=== PATIENT | male | born 1965 | race Caucasian/White ===

== ENCOUNTER 2020-03-13 16:13 | Outpatient (REF) | payer OTHER, SELFPAY | END 2020-03-13 16:14 | disposition home or self-care (01) | LOC: HO.LAB 16:13 | PROVIDERS: Visit Provider Internal Medicine | DX: Z20.828 Contact with and (suspected) exposure to other viral communicable diseases (principal) | CPT/HCPCS: C9803; U0003 ==

== ENCOUNTER 2020-05-07 07:49 | Outpatient (REF) | payer OTHER, SELFPAY ==
[2020-05-07 08:17] LABS: MANUAL DIFF FLAG NO
[2020-05-07 08:20] LABS: Basophils Percent Auto 0.7 % (0-2); Eosinophils Absolute Auto 0.1 X10*3/uL (0.0-0.4); Eosinophils Percent Auto 2.8 % (0-4); Hematocrit 43.2 % (42-52); Hemoglobin 15.7 g/dl (14.0-18.0); Imm Gran Abs Auto 0.02 X10*3/uL (0.00-0.03); Imm Gran Pct Auto 0.5 % (0.0-0.4); Lymphocytes Percent Auto 21.8 % (20-40); Mean Corpuscular HGB Conc 36.3 g/dl (31.0-36.0); Mean Corpuscular Hemoglobin 33.6 pg (27.0-33.0); Mean Corpuscular Volume 92.5 fL (80-98); Mean Platelet Volume 9.6 fL (9.4-12.4); Monocytes Absolute Auto 0.5 X10*3/uL (0.1-1.2); Monocytes Percent Auto 10.6 % (2-11); Neutrophils Absolute Auto 2.8 X10*3/uL (2.0-8.3); Neutrophils Percent Auto 63.6 % (45-73); Platelet Count 175 X10*3/uL (160-400); Red Blood Count 4.67 X10*6/uL (4.60-5.80); Red Cell Distribution Width 11.6 % (11.0-16.0); White Blood Count 4.4 X10*3/uL (4.8-10.8)
[2020-05-07 08:45] LABS: Alanine Aminotransferase 76 U/L (0-40); Anion Gap 14 (12-20); Aspartate Amino Transferase 82 U/L (5-37); Blood Urea Nitrogen 8 mg/dL (9-16); Carbon Dioxide 27 mmol/L (22-29); Chloride 96 mmol/L (96-108); Estimated Glomerular Filt Rate > 60; Potassium 4.6 mmol/L (3.3-5.1); Sodium 132 mmol/L (135-145)
[2020-05-07 09:16] LABS: Creatinine Urine 86.31 mg/dL; Microalbum/Creatinine Ratio Ur 30.1 ug/mg cr
[2020-05-07 10:02] LABS: Estimated Average Glucose 163 mg/dL; Hemoglobin A1c % 7.3 %
[2020-05-09 16:26] LABS: FIB-ALT 68 U/L (9-46); FIB-Alpha-2-Macroglobulin 177 mg/dL (106-279); FIB-Apolipoprotein A1 148 mg/dL (94-176); FIB-GGT 130 U/L (3-85); FIB-Haptoglobin 95 mg/dL (43-212); Liver Fibrosis Stage F2; Nec Inflam Act Grade A1-A2; Nec Inflam Act Score 0.48
== END 2020-05-07 07:50 | disposition home or self-care (01) ==
LOC: HO.LAB 07:49
PROVIDERS: Visit Provider Family Medicine
DX: I10 Essential (primary) hypertension (principal); E11.9 Type 2 diabetes mellitus without complications; R94.5 Abnormal results of liver function studies
CPT/HCPCS: 36415; 80051; 81596; 82043; 82565; 83036; 84450; 84460; 84520; 85025

== ENCOUNTER 2020-11-10 07:53 | Outpatient (REF) | payer OTHER, SELFPAY ==
[2020-11-10 11:06] LABS: Estimated Average Glucose 160 mg/dL; Hemoglobin A1c % 7.2 %
[2020-11-10 11:16] LABS: Alanine Aminotransferase 70 U/L (0-40); Anion Gap 14 (12-20); Aspartate Amino Transferase 60 U/L (5-37); Blood Urea Nitrogen 7 mg/dL (9-16); Carbon Dioxide 27 mmol/L (22-29); Chloride 100 mmol/L (96-108); Cholesterol 182 mg/dL; Estimated Glomerular Filt Rate > 60; Glucose Fasting 221 mg/dL (60-99); HDL Cholesterol 48 mg/dL; LDL Cholesterol Calculated 117 mg/dl; Potassium 4.6 mmol/L (3.3-5.1); Sodium 136 mmol/L (135-145); Triglycerides 87 mg/dL
== END 2020-11-10 07:54 | disposition home or self-care (01) ==
LOC: HO.10HDL 07:53
PROVIDERS: Visit Provider Family Medicine
DX: I10 Essential (primary) hypertension (principal); E11.9 Type 2 diabetes mellitus without complications; E78.00 Pure hypercholesterolemia, unspecified; Z79.899 Other long term (current) drug therapy
CPT/HCPCS: 36415; 80051; 80061; 82565; 82947; 83036; 84450; 84460; 84520

== ENCOUNTER 2021-03-31 08:05 | Outpatient (REF) | payer OTHER, SELFPAY ==
[2021-03-31 10:27] LABS: Estimated Average Glucose 157 mg/dL; Hemoglobin A1c % 7.1 %
[2021-03-31 10:35] LABS: Creatinine Urine 126.89 mg/dL; Microalbum/Creatinine Ratio Ur 18.1 ug/mg cr
[2021-03-31 10:36] LABS: Alanine Aminotransferase 50 U/L (0-40); Anion Gap 14 (12-20); Aspartate Amino Transferase 57 U/L (5-37); Blood Urea Nitrogen 7 mg/dL (9-16); Carbon Dioxide 25 mmol/L (22-29); Chloride 101 mmol/L (96-108); Cholesterol 180 mg/dL; Estimated Glomerular Filt Rate > 60; Glucose Fasting 147 mg/dL (60-99); HDL Cholesterol 37 mg/dL; LDL Cholesterol Calculated 123 mg/dl; Sodium 136 mmol/L (135-145); Triglycerides 104 mg/dL
== END 2021-03-31 08:06 | disposition home or self-care (01) ==
LOC: HO.10HDL 08:05
PROVIDERS: Visit Provider Family Medicine
DX: I10 Essential (primary) hypertension (principal); E11.9 Type 2 diabetes mellitus without complications; E78.00 Pure hypercholesterolemia, unspecified; Z79.899 Other long term (current) drug therapy
CPT/HCPCS: 36415; 80051; 80061; 82043; 82550; 82565; 82947; 83036; 84450; 84460; 84520

== ENCOUNTER 2021-06-15 07:52 | Outpatient (REF) | payer OTHER, SELFPAY ==
[2021-06-15 10:54] LABS: Estimated Average Glucose 146 mg/dL; Hemoglobin A1c % 6.7 %
[2021-06-15 11:04] LABS: Alanine Aminotransferase 37 U/L (0-40); Aspartate Amino Transferase 28 U/L (5-37); Glucose Fasting 211 mg/dL (60-99)
== END 2021-06-15 07:53 | disposition home or self-care (01) ==
LOC: HO.10HDL 07:52
PROVIDERS: Visit Provider Family Medicine
DX: E11.9 Type 2 diabetes mellitus without complications (principal); K75.81 Nonalcoholic steatohepatitis (NASH)
CPT/HCPCS: 36415; 82947; 83036; 84450; 84460

== ENCOUNTER 2021-08-26 06:31 | Outpatient (REF) | payer OTHER, SELFPAY ==
[2021-08-26 06:52] LABS: MANUAL DIFF FLAG NO
[2021-08-26 07:14] LABS: Basophils Percent Auto 1.1 % (0-2); Eosinophils Absolute Auto 0.1 X10*3/uL (0.0-0.4); Eosinophils Percent Auto 2.7 % (0-4); Hematocrit 41.6 % (42.0-52.0); Hemoglobin 15.1 g/dl (14.0-18.0); Imm Gran Abs Auto 0.02 X10*3/uL (0.00-0.03); Imm Gran Pct Auto 0.5 % (0.0-0.4); Lymphocytes Absolute Auto 0.9 X10*3/uL (1.2-4.9); Lymphocytes Percent Auto 25.1 % (20-40); Mean Corpuscular HGB Conc 36.3 g/dl (31.0-36.0); Mean Corpuscular Hemoglobin 33.6 pg (27.0-33.0); Mean Corpuscular Volume 92.7 fL (80.0-98.0); Mean Platelet Volume 9.7 fL (9.4-12.4); Monocytes Absolute Auto 0.5 X10*3/uL (0.1-1.2); Monocytes Percent Auto 13.8 % (2-11); Neutrophils Absolute Auto 2.1 x10*3/uL (2.0-8.3); Neutrophils Percent Auto 56.8 % (45-73); Platelet Count 134 X10*3/uL (160-400); Red Blood Count 4.49 X10*6/uL (4.60-5.80); Red Cell Distribution Width 11.8 % (11.0-16.0); White Blood Count 3.7 X10*3/uL (4.8-10.8)
[2021-08-26 07:23] LABS: Estimated Average Glucose 146 mg/dL; Hemoglobin A1C 198.3215 umol/L; Hemoglobin A1c % 6.7 %
[2021-08-26 07:43] LABS: Anion Gap 12 (12-20); Blood Urea Nitrogen 10 mg/dL (9-16); Carbon Dioxide 27 mmol/L (22-29); Chloride 102 mmol/L (96-108); Estimated Glomerular Filt Rate > 60; Glucose Fasting 206 mg/dL (60-99); Potassium 4.8 mmol/L (3.3-5.1); Sodium 136 mmol/L (135-145)
[2021-08-26 09:07] LABS: Creatinine Urine 101.03 mg/dL; Microalbum/Creatinine Ratio Ur 15.8 ug/mg cr
== END 2021-08-26 06:32 | disposition home or self-care (01) ==
LOC: HO.LAB 06:31
PROVIDERS: PCP Family Medicine; Visit Provider Family Medicine
DX: R63.4 Abnormal weight loss (principal); E11.9 Type 2 diabetes mellitus without complications; I10 Essential (primary) hypertension
CPT/HCPCS: 36415; 80051; 82043; 82565; 82947; 83036; 84520; 85025

== ENCOUNTER 2022-02-19 08:21 | Outpatient (REF) | payer OTHER, SELFPAY ==
[2022-02-19 11:09] LABS: Estimated Average Glucose 126 mg/dL
[2022-02-19 11:14] LABS: Alanine Aminotransferase 41 U/L (0-40); Anion Gap 14 (12-20); Aspartate Amino Transferase 36 U/L (5-37); Blood Urea Nitrogen 8 mg/dL (9-16); Carbon Dioxide 27 mmol/L (22-29); Chloride 98 mmol/L (96-108); Estimated Glomerular Filt Rate > 60; Glucose Fasting 172 mg/dL (60-99); Potassium 4.5 mmol/L (3.3-5.1); Sodium 134 mmol/L (135-145)
== END 2022-02-19 08:22 | disposition home or self-care (01) ==
LOC: HO.10HDL 08:21
PROVIDERS: Visit Provider Family Medicine
DX: I10 Essential (primary) hypertension (principal); E11.9 Type 2 diabetes mellitus without complications; E78.00 Pure hypercholesterolemia, unspecified; Z79.899 Other long term (current) drug therapy
CPT/HCPCS: 36415; 80051; 82565; 82947; 83036; 84450; 84460; 84520

== ENCOUNTER 2022-03-05 08:53 | Outpatient (REF) | payer OTHER, SELFPAY ==
[2022-03-05 11:19] LABS: MANUAL DIFF FLAG NO
[2022-03-05 11:30] LABS: Basophils Percent Auto 1.1 % (0-2); Eosinophils Absolute Auto 0.1 X10*3/uL (0.0-0.4); Eosinophils Percent Auto 1.4 % (0-4); Hematocrit 42.9 % (42.0-52.0); Hemoglobin 15.4 g/dl (14.0-18.0); Lymphocytes Absolute Auto 0.7 X10*3/uL (1.2-4.9); Lymphocytes Percent Auto 19.5 % (20-40); Mean Corpuscular HGB Conc 35.9 g/dl (31.0-36.0); Mean Corpuscular Hemoglobin 33.7 pg (27.0-33.0); Mean Corpuscular Volume 93.9 fL (80.0-98.0); Mean Platelet Volume 10.1 fL (9.4-12.4); Monocytes Absolute Auto 0.4 X10*3/uL (0.1-1.2); Monocytes Percent Auto 12.6 % (2-11); Neutrophils Absolute Auto 2.3 x10*3/uL (2.0-8.3); Neutrophils Percent Auto 65.4 % (45-73); Platelet Count 162 X10*3/uL (160-400); Red Blood Count 4.57 X10*6/uL (4.60-5.80); Red Cell Distribution Width 11.3 % (11.0-16.0); White Blood Count 3.5 X10*3/uL (4.8-10.8)
[2022-03-05 11:58] LABS: Amylase 49 U/L (28-100); Calcium 9.4 mg/dL (8.4-10.2); Carcinoembryonic Antigen < 1.73 ng/mL; Lipase 20 U/L (8-78)
[2022-03-05 12:17] LABS: Erythrocyte Sedimentation Rate 2 MM/HR (0-15)
[2022-03-05 12:24] LABS: Appearance Urine Clear; Color Urine Yellow; Glucose Urine UA Negative (Negative); Leukocyte Esterase Urine Negative (Negative); Nitrite Urine Negative (Negative); Specific Gravity - Urine 1.015 (1.005-1.025); UMIC TRIGGER UA YES; Urine Blood Negative (Negative); Urine Ketones Trace mg/dL (Negative); Urine Protein 30 (1+) mg/dL (Neg-Trace)
[2022-03-05 12:26] LABS: Bacteria Urine None Seen (None Seen); Hyaline Casts Urine 0-2 /LPF (0-2); RBC Urine 0-2 /HPF (0-2); Squamous Epithelial Cell Urine 0-2 /HPF (0-2); WBC Urine 0-5 /HPF (0-5)
== END 2022-03-05 08:54 | disposition home or self-care (01) ==
LOC: HO.10HDL 08:53
PROVIDERS: Visit Provider Family Medicine
DX: R10.13 Epigastric pain (principal); R10.9 Unspecified abdominal pain; R63.4 Abnormal weight loss
CPT/HCPCS: 36415; 81001; 82150; 82310; 82378; 83690; 85025; 85652

== ENCOUNTER 2022-03-05 09:09 | Outpatient (REF) | payer OTHER, SELFPAY ==
--- NOTE | ~2022-03-05 | US_ITS ---
EXAMINATION: US ABDOMEN COMPLETE CLINICAL INFORMATION: Left upper quadrant pain. Weight loss. COMPARISON: None TECHNIQUE: Real-time imaging of the abdominal viscera. FINDINGS: PANCREAS: The head and body of the pancreas are normal. The tail is not well visualized due to bowel gas. ABDOMINAL AORTA: The proximal, mid, and distal segments are normal in caliber. INFERIOR VENA CAVA: Visualized portions are normal. LIVER: Liver echotexture is increased. The liver is normal in size The liver contour is normal. No focal hepatic lesion. There is no intrahepatic biliary duct dilatation seen. GALLBLADDER: Normal. The gallbladder is physiologically distended without evidence of stones, sludge, polyps, wall thickening or pericholecystic fluid. COMMON BILE DUCT: Normal in caliber measuring 0.3 cm in diameter. RIGHT KIDNEY: Normal. No hydronephrosis. No renal calculi or focal parenchymal lesions. The kidney measures 12.3 cm in maximum dimension. LEFT KIDNEY: 1.3 cm cyst in the midpole. No hydronephrosis or renal calculi. The kidney measures 11.7 cm in maximum dimension. SPLEEN: Upper normal-size spleen. The spleen measures 11.3 cm in maximum dimension. FREE FLUID: None. US/US abdomen complete IMPRESSION: Echogenic liver. Differential would include fatty infiltration and hepatocellular disease. Upper normal-size spleen. Limited visualization of the tail of the pancreas. Left renal cyst.
== END 2022-03-05 09:10 | disposition home or self-care (01) ==
LOC: HO.US 09:09
PROVIDERS: Visit Provider Family Medicine
DX: R10.13 Epigastric pain (principal); R63.4 Abnormal weight loss
CPT/HCPCS: 76700

== ENCOUNTER 2022-05-14 10:00 | Outpatient (REF) | payer OTHER, SELFPAY ==
[2022-05-14 10:41] LABS: COVID-19 Test Negative (Negative); IDNOW Serial# 16C4AD1C
== END 2022-05-14 10:01 | disposition home or self-care (01) ==
LOC: HO.LAB 10:00
PROVIDERS: Visit Provider Internal Medicine
DX: Z20.822 Contact with and (suspected) exposure to COVID-19 (principal)
CPT/HCPCS: 87635; C9803

== ENCOUNTER 2022-06-28 07:39 | Outpatient (REF) | payer OTHER, SELFPAY ==
[2022-06-28 10:48] LABS: Estimated Average Glucose 143 mg/dL; Hemoglobin A1c % 6.6 %
[2022-06-28 10:50] LABS: Glucose Fasting 175 mg/dL (60-99)
[2022-06-28 11:33] LABS: Creatinine Urine 106.34 mg/dL; Microalbum/Creatinine Ratio Ur 18.8 ug/mg cr
== END 2022-06-28 07:40 | disposition home or self-care (01) ==
LOC: HO.10HDL 07:39
PROVIDERS: Visit Provider Family Medicine
DX: E11.9 Type 2 diabetes mellitus without complications (principal)
CPT/HCPCS: 36415; 82043; 82947; 83036

== ENCOUNTER 2022-10-04 10:35 | Day surgery (SDC) | payer OTHER, SELFPAY ==
--- NOTE | 2022-10-01 14:15 | P.CONAN_ITS ---
Documented by User: Aiyana Brunner NP 10/01/22 14:16 HPI - Anesthesia Eval Consult details Narrative: 57yo M for Upper Endoscopy and Colonoscopy [facility] Past Medical History Medical History Depression Diabetes GERD (gastroesophageal reflux disease) H/O sleep study HTN (hypertension) Pulmonary sarcoidosis Surgical History Surgical History H/O wrist surgery History of Achilles tendon repair History of right knee joint replacement Hx of appendectomy Social History Social History Patient Tobacco Use Status: Never used Tobacco Second Hand Smoke Exposure: No Use of substances other than those prescribed or required for medical reasons: No Are you DNR?: No Advance Directives: No Advance Directives Information Provided: Yes Advance Directives on File: No Meds Allergies Allergy/AdvReac Type Severity Reaction Status Date / Time No Known Allergies Allergy Unverified 09/07/21 13:48 [No Known Allergies*] Home Medications Medication Instructions Recorded Confirmed Last Taken Type amlodipine 5 mg tablet 5 mg PO QPM 09/07/21 Unknown History blood sugar diagnostic (OneTouch #10 ea 09/07/21 Unknown History Ultra Test strips) bupropion HCl 300 mg 24 hr tablet, 300 mg PO QAM 09/07/21 Unknown History extended release gabapentin 300 mg capsule 300 mg PO BEDTIME 09/07/21 Unknown History lisinopril 20 mg tablet 20 mg PO DAILY 09/07/21 Unknown History metformin 1,000 mg tablet 1,000 mg PO BEDTIME 09/07/21 Unknown History tadalafil 10 mg tablet 10 mg PO DAILY 09/07/21 Unknown History atorvastatin 10/01/22 Unknown History citalopram 20 mg tablet 20 mg PO QAM 10/01/22 10/01/22 Unknown History mirtazapine 15 mg tablet mg 10/01/22 Unknown History naltrexone 50 mg tablet mg 10/01/22 Unknown History Exam Exam Date and Time: October 01, 2022 1415 Assessment and Plan Assessment Anesthesia Assessment: Chart Reviewed Documented by User: Nichole Shin MD 10/04/22 11:42 [facility] Past Medical History Medical History Depression Diabetes GERD (gastroesophageal reflux disease) H/O sleep study HTN (hypertension) Pulmonary sarcoidosis Family History Family history of problems with anesthesia: No Surgical History Surgical History H/O wrist surgery History of Achilles tendon repair History of right knee joint replacement Hx of appendectomy History of Problems with Anesthesia: No Social History Social History Patient Tobacco Use Status: Never used Tobacco Second Hand Smoke Exposure: No Use of substances other than those prescribed or required for medical reasons: No Are you DNR?: No Advance Directives: No Advance Directives Information Provided: Yes Advance Directives on File: No Meds Allergies Allergy/AdvReac Type Severity Reaction Status Date / Time No Known Allergies Allergy Unverified 09/07/21 13:48 [No Known Allergies*] Home Medications Medication Instructions Recorded Confirmed Last Taken Type amlodipine 5 mg tablet 5 mg PO QPM 09/07/21 Unknown History blood sugar diagnostic (OneTouch #10 ea 09/07/21 Unknown History Ultra Test strips) bupropion HCl 300 mg 24 hr tablet, 300 mg PO QAM 09/07/21 Unknown History extended release gabapentin 300 mg capsule 300 mg PO BEDTIME 09/07/21 Unknown History lisinopril 20 mg tablet 20 mg PO DAILY 09/07/21 Unknown History metformin 1,000 mg tablet 1,000 mg PO BEDTIME 09/07/21 Unknown History tadalafil 10 mg tablet 10 mg PO DAILY 09/07/21 Unknown History atorvastatin 10/01/22 Unknown History citalopram 20 mg tablet 20 mg PO QAM 10/01/22 10/01/22 Unknown History mirtazapine 15 mg tablet mg 10/01/22 Unknown History naltrexone 50 mg tablet mg 10/01/22 Unknown History Exam Airway Mallampati Class: II TM Dist: >3cm Neck ROM: Full Heart: rrr Lungs: cta Assessment and Plan Assessment Anesthesia Assessment: Anesthesia Plan Discussed Final Anesthetic Review Family History of Problems with Anesthesia: No History of Problems with Anesthesia: No NPO: Yes ASA Class: III Final Preanesthetic Review: No Changes in Pt Med Stat, Meds/Allgs Chart Reviewed, Consent Obtained/Reviewed and Anes Risks/Benef Reviewed Patient Risk: Low Procedure Risk: Low Anesthetic Plan Anesthetic Plan: MAC: Disposition: Standard PACU
[2022-10-04 11:02] VITALS: BMI 29.0
[2022-10-04 11:09] VITALS: BP 156/80; PULSE 86; RESP 16; TEMP 36.6; O2SAT 98
[2022-10-04] MEDS: Lactated Ringers 1,000 ML 100 ML IVCONT (11:21)
[2022-10-04 12:12] LABS: Glucose, Whole Blood 201 mg/dL (60-115)
[2022-10-04 13:14] VITALS: BP 99/65; PULSE 80; RESP 16; TEMP 36.1; O2SAT 97
--- NOTE | 2022-10-04 13:17 | PM.OP ---
Brief Operative Note Date of Service: 10/04/22 Pre-op diagnosis: GERD, Screening Post-op diagnosis: other (Erosive esophagitis/Gastritis, Polyps) Procedure: EGD with biopsies, Colonoscopy to the cecum with hot snare polypectomy of a cecal polyp and bx/removal of TC polyp Surgeon: Ahsan Barnes Anesthesia: MAC Was an Power Originator used for this Procedure?: No Estimated blood loss (mL): 2.0 Pathology: other (A. Gastric antrum B. Esophagus 35-40cm C. Cecal polyp D. Transverse colon polyp) Condition: stable Disposition: PACU
[2022-10-04 13:29] VITALS: BP 126/81; PULSE 74; RESP 15; TEMP 36.1; O2SAT 99
--- NOTE | 2022-10-05 00:39 | OP_ITS ---
DATE OF SERVICE: 10/04/2022 SURGEON: Ahsan Barnes MD INDICATIONS: The patient presents for evaluation of chronic gastroesophageal reflux, personal history of tubular adenoma of the colon, and need for colorectal cancer screening. Full consent obtained from him for both procedures, including risks of bleeding and perforation. PREOPERATIVE DIAGNOSIS: POSTOPERATIVE DIAGNOSIS: PROCEDURE PERFORMED: Esophagogastroduodenoscopy with biopsies, and colonoscopy to the cecum with hot snare polypectomy, and biopsy removal of polyp. ESTIMATED BLOOD LOSS: COMPLICATIONS: ANESTHESIA: Monitored anesthesia care. ASSISTANTS: SPECIMENS: PREOPERATIVE DIAGNOSES: Gastroesophageal reflux, history of tubular adenoma of the colon, colorectal cancer screening, erosive esophagitis, hiatal hernia, erosive gastritis, colon polyps, diverticulosis, and small internal hemorrhoids. DESCRIPTION OF PROCEDURE: The patient was placed in the left lateral decubitus position. The Olympus video gastroscope was passed in the posterior oropharynx and upper esophagus under direct vision. The scope was passed slowly into the distal esophagus. The gastroesophageal junction appeared at 40 cm. Extending from this to 35 cm were areas of erosive esophagitis with linear ulcerations as well as an approximately 10 mm area of ulceration with overlying exudate. There is no mass nor any definitive evidence of Light's mucosa. The scope entered the stomach. There was a small hiatal hernia. The scope was advanced to the pylorus and the duodenum was cannulated to the descending portion. The duodenum including the bulb appeared normal without mass or ulceration. The scope was withdrawn back in the stomach. The gastric antrum had areas of erosive gastritis with surrounding edema and erythema. There was no ulceration nor mass. There was good peristalsis. The scope was retroflexed visualizing the proximal stomach carefully, which appeared normal, without any sign of mass or ulceration. The scope was straightened. Biopsies were obtained from the gastric antrum. The scope was withdrawn back into the esophagus. Biopsies were obtained between 35 and 40 cm. Two biopsies were obtained from the margins of the ulceration as well. Proximal to 35 cm the esophageal mucosa appeared normal. The scope was withdrawn from the patient. He was turned around for colonoscopy. The digital rectal exam revealed no abnormalities. The Olympus video pediatric colonoscope was entered into the rectum and advanced easily to the cecum. Once in the cecum, I did identify the cecal pouch, the appendiceal orifice, and a normal-appearing ileocecal valve. The entire cecum was well visualized. In the cecum was an approximately 10 to 12 mm polyp, which was removed by hot snare polypectomy, recovered by suction. The polypectomy site appeared clean, without any sign of residual polyp nor bleeding. The scope was then slowly withdrawn assessing all mucosal surfaces carefully. Preparation throughout the colon was good, but there was a fair amount of liquid stool, which had to be suctioned and irrigated, although this was not complete. In the transverse colon was an approximately 3 or 4 mm polyp, which was biopsied and completely removed with cold biopsy forceps. I did not visualize any other polyps, colitis, or angiodysplasia. There was a mild amount of sigmoid diverticulosis. In the rectum, scope was retroflexed visualizing internal hemorrhoids, but no other pathology. The rectal mucosa appeared normal. The scope was straightened and withdrawn from the patient. He tolerated both procedures well and was returned to recovery area in stable condition. IMPRESSION: 1. Erosive esophagitis. 2. Erosive gastritis. 3. Hiatal hernia. 4. Colon polyps. 5. Diverticulosis. 6. Small internal hemorrhoids. PLAN: The results of the pathology will be checked. I would recommend a repeat colonoscopy in 3 years for further screening and surveillance given the somewhat limited prep and today's findings. He was advised not to use any aspirin or NSAIDs for at least 1 week. He does have a prescription for omeprazole 40 mg to use at home, which he was using regularly, but recently has only been using it as needed. I have advised him to use it daily on a long-term basis regardless whether he has any symptoms or not given today's findings. He was advised to see me in the fall for a followup visit. Depending on the biopsy results and his clinical course, we may want to repeat the upper endoscopy to assess for healing of the esophageal ulcer and esophagitis. I did advise him to try to avoid all aspirin and NSAIDs in general given the upper endoscopy findings as well. MD KRISTIN Edwards/MARIE / [id number] MTDRenae
== END 2022-10-04 14:16 | disposition home or self-care (01) ==
PROVIDERS: PCP Family Medicine; Visit Provider Internal Medicine
PROC: (CPT 45380; principal; 2022-10-04 10:30)
DX: Z12.11 Encounter for screening for malignant neoplasm of colon (principal); D12.0 Benign neoplasm of cecum; D12.3 Benign neoplasm of transverse colon; K22.10 Ulcer of esophagus without bleeding; K25.9 Gastric ulcer, unspecified as acute or chronic, without hemorrhage or perforation; K44.9 Diaphragmatic hernia without obstruction or gangrene; K57.30 Diverticulosis of large intestine without perforation or abscess without bleeding; K64.8 Other hemorrhoids; K21.9 Gastro-esophageal reflux disease without esophagitis; F10.21 Alcohol dependence, in remission; E11.9 Type 2 diabetes mellitus without complications; I10 Essential (primary) hypertension; E78.5 Hyperlipidemia, unspecified; Z86.010 Personal history of colon polyps; Z79.899 Other long term (current) drug therapy
CPT/HCPCS: 45380; 45385; 43239; 82947; 88305; 88342

== ENCOUNTER 2023-01-28 08:00 | Outpatient (REF) | payer OTHER, SELFPAY ==
[2023-01-28 10:55] LABS: Estimated Average Glucose 171 mg/dL; Hemoglobin A1c % 7.6 % (<6.0)
[2023-01-28 11:05] LABS: Alanine Aminotransferase 71 U/L (0-40); Anion Gap 12 (12-20); Aspartate Amino Transferase 62 U/L (5-37); Blood Urea Nitrogen 8 mg/dL (9-16); Carbon Dioxide 28 mmol/L (22-29); Chloride 102 mmol/L (96-108); Estimated Glomerular Filt Rate > 60; Glucose Fasting 257 mg/dL (60-99); Potassium 4.6 mmol/L (3.3-5.1); Sodium 137 mmol/L (135-145)
[2023-01-28 11:18] LABS: Prostate Specific Antigen Scr 0.59 ng/mL (<0.05-4.0)
== END 2023-01-28 08:01 | disposition home or self-care (01) ==
LOC: HO.10HDL 08:00
PROVIDERS: Visit Provider Family Medicine
DX: I10 Essential (primary) hypertension (principal); E11.9 Type 2 diabetes mellitus without complications; E78.00 Pure hypercholesterolemia, unspecified; N40.0 Benign prostatic hyperplasia without lower urinary tract symptoms; Z79.899 Other long term (current) drug therapy; Z12.5 Encounter for screening for malignant neoplasm of prostate
CPT/HCPCS: 36415; 80051; 82550; 82565; 82947; 83036; 84153; 84450; 84460; 84520

== ENCOUNTER 2023-06-03 12:29 | Outpatient (REF) | payer OTHER, SELFPAY ==
[2023-06-03 12:46] LABS: MANUAL DIFF FLAG NO
[2023-06-03 12:57] LABS: Basophils Absolute Auto 0.1 X10*3/uL (0.0-0.2); Eosinophils Percent Auto 0.5 % (0-4); Hematocrit 46.2 % (42.0-52.0); Imm Gran Abs Auto 0.03 X10*3/uL (0.00-0.03); Imm Gran Pct Auto 0.5 % (0.0-0.4); Lymphocytes Absolute Auto 1.1 X10*3/uL (1.2-4.9); Lymphocytes Percent Auto 17.8 % (20-40); Mean Corpuscular HGB Conc 36.8 g/dl (31.0-36.0); Mean Corpuscular Volume 92.4 fL (80.0-98.0); Mean Platelet Volume 9.6 fL (9.4-12.4); Monocytes Absolute Auto 0.6 X10*3/uL (0.1-1.2); Monocytes Percent Auto 9.4 % (2-11); Neutrophils Absolute Auto 4.5 x10*3/uL (2.0-8.3); Neutrophils Percent Auto 70.8 % (45-73); Platelet Count 167 X10*3/uL (160-400); Red Cell Distribution Width 11.5 % (11.0-16.0); White Blood Count 6.3 X10*3/uL (4.8-10.8)
[2023-06-03 13:15] LABS: Alanine Aminotransferase 83 U/L (0-40); Albumin Level 4.5 g/dL (3.5-5.0); Alkaline Phosphatase 75 U/L (39-117); Anion Gap 16 (12-20); Aspartate Amino Transferase 72 U/L (5-37); Blood Urea Nitrogen 7 mg/dL (9-16); Calcium 9.8 mg/dL (8.4-10.2); Carbon Dioxide 25 mmol/L (22-29); Chloride 97 mmol/L (96-108); Estimated Glomerular Filt Rate > 60; Ethanol 36 mg/dL; Glucose Random 302 mg/dL (60-115); Potassium 4.2 mmol/L (3.3-5.1); Sodium 134 mmol/L (135-145)
[2023-06-03 13:29] LABS: Free T4 (Free Thyroxine) 0.94 ng/dL (0.71-1.85)
== END 2023-06-03 12:30 | disposition home or self-care (01) ==
LOC: HO.LAB 12:29
PROVIDERS: Visit Provider Family Medicine
DX: I10 Essential (primary) hypertension (principal); R00.0 Tachycardia, unspecified; R27.0 Ataxia, unspecified; R25.1 Tremor, unspecified
CPT/HCPCS: 36415; 80053; 80307; 84439; 84443; 85025

== ENCOUNTER → 2023-06-14 09:34 | Outpatient (REF) | payer OTHER, SELFPAY ==
--- NOTE | 2023-06-14 09:41 | ECG_ITS ---
Test Reason : palpitations Blood Pressure : / mmHG Vent. Rate : 061 BPM Atrial Rate : 061 BPM P-R Int : 188 ms QRS Dur : 116 ms QT Int : 416 ms P-R-T Axes : 027 -09 023 degrees QTc Int : 418 ms Sinus rhythm with Premature atrial complexes Otherwise normal ECG When compared with ECG of 14-MAY-2014 07:32, Premature atrial complexes are now Present Referred By: Gumaro Sánchez Electronically Signed By:ADRIEL FITCH MD
== END ==
LOC: HO.CARD 09:34
PROVIDERS: PCP Family Medicine; Visit Provider Family Medicine
DX: R00.2 Palpitations (principal)
CPT/HCPCS: 93005

== ENCOUNTER → 2023-06-14 09:41 | Outpatient (BNV) | payer OTHER, SELFPAY | PROVIDERS: PCP Family Medicine; Visit Provider Internal Medicine Cardiovascular Disease | DX: R00.2 Palpitations (principal) | CPT/HCPCS: 93010 ==

== ENCOUNTER 2023-07-13 07:39 | Outpatient (REF) | payer OTHER, SELFPAY | END 2023-07-13 07:40 | disposition home or self-care (01) | LOC: HO.10HDL 07:39 | PROVIDERS: Visit Provider Family Medicine | DX: E11.9 Type 2 diabetes mellitus without complications (principal); K75.81 Nonalcoholic steatohepatitis (NASH); R00.2 Palpitations | CPT/HCPCS: 36415; 82043; 82570; 82947; 83036; 84450; 84460 ==

== ENCOUNTER 2023-07-22 09:59 | Outpatient (REF) | payer OTHER, SELFPAY ==
[2023-07-22 12:08] LABS: Alanine Aminotransferase 57 U/L (0-40); Albumin Level 4.6 g/dL (3.5-5.0); Alkaline Phosphatase 62 U/L (39-117); Aspartate Amino Transferase 57 U/L (5-37); Bilirubin Direct 0.4 mg/dL (0.0-0.5); Bilirubin Total 1.1 mg/dL (0.0-1.0); Total Protein 7.6 g/dL (6.5-8.0)
[2023-08-03 18:14] LABS: FIB-ALT 46 U/L (9-46); FIB-Alpha-2-Macroglobulin 195 mg/dL (106-279); FIB-Apolipoprotein A1 174 mg/dL (94-176); FIB-GGT 189 U/L (3-85); FIB-Haptoglobin 90 mg/dL (43-212); FIB-Total Bilirubin 1.1 mg/dL (0.2-1.2); Liver Fibrosis Score 0.56; Liver Fibrosis Stage F2; Nec Inflam Act Grade A1; Nec Inflam Act Score 0.34
== END 2023-07-22 10:00 | disposition home or self-care (01) ==
LOC: HO.10HDL 09:59
PROVIDERS: Referring Provider Internal Medicine; Visit Provider Family Medicine
DX: K75.81 Nonalcoholic steatohepatitis (NASH) (principal)
CPT/HCPCS: 36415; 80076; 81596

== ENCOUNTER 2023-08-22 07:36 | Outpatient (REF) | payer OTHER, SELFPAY ==
[2023-08-22 11:33] LABS: Alanine Aminotransferase 36 U/L (0-40); Albumin Level 4.2 g/dL (3.5-5.0); Alkaline Phosphatase 71 U/L (39-117); Aspartate Amino Transferase 31 U/L (5-37); Bilirubin Direct 0.5 mg/dL (0.0-0.5); Bilirubin Total 1.7 mg/dL (0.0-1.0); Iron 151 mcg/dL (45-160); Percent Iron Saturation 53 % (15-50); Total Iron Binding Capacity 283 mcg/dL (228-428); Total Protein 7.2 g/dL (6.5-8.0); Unsaturated Iron Binding 132 ug/dL
[2023-08-22 11:42] LABS: HBS Num1 1.02 mIU/mL (0-7.99); HBc Num1 0.17 S/CO (0.00-0.79); HBsAGNum1 0.36 S/CO (0.00-0.99); Hepatitis B Core Antibody Nonreactive (Nonreactive); Hepatitis B Surface Antigen Negative (Negative); ~HepC Num1 0.08 S/CO (0.00-0.79); ~Hepatitis B Surface Antibody NONREACTIVE (Nonreactive); ~Hepatitis C Antibody Nonreactive (Nonreactive)
[2023-08-22 11:48] LABS: Ferritin 969 ng/mL (20-250)
[2023-08-23 10:44] LABS: Alpha 1 Anti-trypsin 159 mg/dL (83-199)
== END 2023-08-22 07:37 | disposition home or self-care (01) ==
LOC: HO.10HDL 07:36
PROVIDERS: Visit Provider Internal Medicine
DX: K76.0 Fatty (change of) liver, not elsewhere classified (principal); R79.89 Other specified abnormal findings of blood chemistry
CPT/HCPCS: 36415; 80076; 82103; 82728; 83540; 86704; 86706; 86803; 87340

== ENCOUNTER 2023-09-26 10:57 | Day surgery (SDC) | payer OTHER, SELFPAY ==
[2023-09-22 15:05] VITALS: BMI 31.4
--- NOTE | 2023-09-23 10:30 | HO.ANESPROP2 ---
Documented by User: Aiyana Brunner NP 09/23/23 10:38 HPI - Anesthesia Eval Consult details Narrative: 58yo M for Upper Endoscopy [facility] Past Medical History Medical History Hyperlipidemia GERD (gastroesophageal reflux disease) Pulmonary sarcoidosis Depression HTN (hypertension) Diabetes Family History Family history of problems with anesthesia: No Surgical History Surgical History History of esophagogastroduodenoscopy (EGD) H/O colonoscopy Hx of appendectomy History of Achilles tendon repair H/O wrist surgery History of right knee joint replacement History of Problems with Anesthesia: No Social History Social History Patient Tobacco Use Status: Never used Tobacco Second Hand Smoke Exposure: No Use of substances other than those prescribed or required for medical reasons: No Are you DNR?: No Advance Directives: No Advance Directives Information Provided: Yes Meds Allergies Allergy/AdvReac Type Severity Reaction Status Date / Time No Known Allergies Allergy Verified 09/26/23 11:15 [No Known Allergies*] Home Medications ?Medication ?Instructions ?Recorded ?Confirmed ?Last Taken ?Type amlodipine 5 mg tablet 5 mg PO QPM 09/07/21 09/22/23 Unknown History blood sugar diagnostic (OneTouch #10 ea 09/07/21 Unknown History Ultra Test strips) gabapentin 300 mg capsule 300 mg PO BEDTIME 09/07/21 09/22/23 Unknown History lisinopril 20 mg tablet 20 mg PO DAILY 09/07/21 09/22/23 Unknown History metformin 1,000 mg tablet 1,000 mg PO BEDTIME 09/07/21 09/22/23 Unknown History atorvastatin 10/01/22 Unknown History citalopram 20 mg tablet 20 mg PO QAM 10/01/22 09/22/23 Unknown History mirtazapine 15 mg tablet 15 mg PO BEDTIME 10/01/22 09/22/23 Unknown History naltrexone 50 mg tablet 50 mg PO QAM 10/01/22 09/22/23 Unknown History metoprolol succinate 50 mg 50 mg PO DAILY 09/22/23 09/22/23 Unknown History tablet,extended release 24 hr omeprazole 40 mg capsule,delayed 40 mg PO QAM 09/22/23 09/22/23 Unknown History release sildenafil 100 mg tablet 100 mg PO DAILY PRN Erectile 09/22/23 09/22/23 Unknown History Dysfunction Exam Height,Weight and Vital Signs: Height 6 ft 5 in Weight 120.202 kg Pertinent Lab Results Pertinent Lab Results: Laboratory Tests 06/03/23 12:44 WBC 6.3 Hgb 17.0 Hct 46.2 Plt Count 167 Sodium 134 L Potassium 4.2 Chloride 97 Carbon Dioxide 25 BUN 7 L Creatinine 0.99 Narrative Narrative: EKG 06/2023 Vent. Rate : 061 BPM Atrial Rate : 061 BPM P-R Int : 188 ms QRS Dur : 116 ms QT Int : 416 ms P-R-T Axes : 027 -09 023 degrees QTc Int : 418 ms Sinus rhythm with Premature atrial complexes Otherwise normal ECG When compared with ECG of 14-MAY-2014 07:32, Premature atrial complexes are now Present Assessment and Plan Assessment Anesthesia Assessment: Chart Reviewed Final Anesthetic Review Family History of Problems with Anesthesia: No History of Problems with Anesthesia: No Documented by User: Kriss Corbett MD 09/26/23 12:50 [facility] Active Problems Active Problems: DM- missed metformin doses over the weekend. BS 247 Denies SERGEY H/o ETOH abuse Past Medical History Medical History Hyperlipidemia GERD (gastroesophageal reflux disease) Pulmonary sarcoidosis Depression HTN (hypertension) Diabetes Family History Family history of problems with anesthesia: No Surgical History Surgical History History of esophagogastroduodenoscopy (EGD) H/O colonoscopy Hx of appendectomy History of Achilles tendon repair H/O wrist surgery History of right knee joint replacement History of Problems with Anesthesia: No Social History Social History Patient Tobacco Use Status: Never used Tobacco Second Hand Smoke Exposure: No Use of substances other than those prescribed or required for medical reasons: No Are you DNR?: No Advance Directives: No Advance Directives Information Provided: Yes Meds Allergies Allergy/AdvReac Type Severity Reaction Status Date / Time No Known Allergies Allergy Verified 09/26/23 11:15 [No Known Allergies*] Home Medications ?Medication ?Instructions ?Recorded ?Confirmed ?Last Taken ?Type amlodipine 5 mg tablet 5 mg PO QPM 09/07/21 09/22/23 Unknown History blood sugar diagnostic (OneTouch #10 ea 09/07/21 Unknown History Ultra Test strips) gabapentin 300 mg capsule 300 mg PO BEDTIME 09/07/21 09/22/23 Unknown History lisinopril 20 mg tablet 20 mg PO DAILY 09/07/21 09/22/23 Unknown History metformin 1,000 mg tablet 1,000 mg PO BEDTIME 09/07/21 09/22/23 Unknown History atorvastatin 10/01/22 Unknown History citalopram 20 mg tablet 20 mg PO QAM 10/01/22 09/22/23 Unknown History mirtazapine 15 mg tablet 15 mg PO BEDTIME 10/01/22 09/22/23 Unknown History naltrexone 50 mg tablet 50 mg PO QAM 10/01/22 09/22/23 Unknown History metoprolol succinate 50 mg 50 mg PO DAILY 09/22/23 09/22/23 Unknown History tablet,extended release 24 hr omeprazole 40 mg capsule,delayed 40 mg PO QAM 09/22/23 09/22/23 Unknown History release sildenafil 100 mg tablet 100 mg PO DAILY PRN Erectile 09/22/23 09/22/23 Unknown History Dysfunction Exam Height,Weight and Vital Signs: Height 6 ft 5 in Weight 120.202 kg Vital Signs Temp Pulse Resp BP Pulse Ox O2 Del Method 09/26/23 11:34 98.3 F 70 16 151/88 H 97 Room Air Pertinent Lab Results Pertinent Lab Results: Laboratory Tests 06/03/23 12:44 WBC 6.3 Hgb 17.0 Hct 46.2 Plt Count 167 Sodium 134 L Potassium 4.2 Chloride 97 Carbon Dioxide 25 BUN 7 L Creatinine 0.99 Lab Results 09/26/23 Range/Units 11:46 POC Glucose 247 H (60-115) mg/dL Airway Mallampati Class: III TM Dist: >3cm Neck ROM: Full Loose/Missing/Broken Teeth: No (Denies broken, loose, missing teeth) Heart: RRR Lungs: CTAB Assessment and Plan Assessment Anesthesia Assessment: Anesthesia Plan Discussed and Chart Reviewed Final Anesthetic Review Family History of Problems with Anesthesia: No History of Problems with Anesthesia: No NPO: Yes ASA Class: III Final Preanesthetic Review: No Changes in Pt Med Stat, Meds/Allgs Chart Reviewed, Consent Obtained/Reviewed and Anes Risks/Benef Reviewed Patient Risk: Intermediate Procedure Risk: Low Assessment/Block/Sedation in SS: Assess/Block/Sedation-SS Anesthetic Plan Anesthetic Plan: TIVA
[2023-09-26 11:16] VITALS: BMI 30.6
[2023-09-26 11:34] VITALS: BP 151/88; PULSE 70; RESP 16; TEMP 36.8; O2SAT 97
[2023-09-26] MEDS: Lactated Ringers 1,000 ML 100 ML IVCONT (11:42)
[2023-09-26 11:53] LABS: Glucose, Whole Blood 247 mg/dL (60-115)
--- NOTE | 2023-09-26 13:13 | PC.NURSE ---
24hr update documented on paper
[2023-09-26 13:25] VITALS: BP 129/76; PULSE 89; RESP 16; TEMP 37.1; O2SAT 97
[2023-09-26 13:30] VITALS: BP 132/79; PULSE 81; RESP 16; O2SAT 97
--- NOTE | 2023-09-26 13:32 | PM.OP ---
Brief Operative Note Date of Service: 09/26/23 Pre-op diagnosis: GERD, Erosive esophagitis Post-op diagnosis: other (Hiatal hernia, R/O Light's) Procedure: EGD with biopsies Surgeon: Ahsan Barnes MD Anesthesia: MAC Was an Clinic Supervisor used for this Procedure?: No Estimated blood loss (mL): 2.0 Pathology: other (A. Esophagus 40-41cm) Condition: stable Disposition: PACU
[2023-09-26 13:35] VITALS: BP 140/81; PULSE 72; RESP 16; O2SAT 100
[2023-09-26 13:40] VITALS: BP 150/86; PULSE 71; RESP 16; TEMP 36.1; O2SAT 100
--- NOTE | 2023-09-26 14:38 | OP_ITS ---
DATE OF SERVICE: 09/26/2023 SURGEON: Ahsan Barnes MD INDICATIONS: The patient presents for evaluation of previous erosive esophagitis and gastroesophageal reflux. Full consent has been obtained from him for this, including risks of bleeding and perforation. PREOPERATIVE DIAGNOSIS: POSTOPERATIVE DIAGNOSIS: PROCEDURE PERFORMED: Esophagogastroduodenoscopy with biopsies. ESTIMATED BLOOD LOSS: COMPLICATIONS: ANESTHESIA: Monitored anesthesia care. ASSISTANTS: SPECIMENS: PREOPERATIVE DIAGNOSES: History of erosive esophagitis and gastroesophageal reflux. POSTOPERATIVE DIAGNOSES: History of erosive esophagitis and gastroesophageal reflux, healed esophagitis, rule out Light esophagus, hiatal hernia. DESCRIPTION OF PROCEDURE: The patient was placed in the left lateral decubitus position. The Olympus video gastroscope was passed in the posterior oropharynx and upper esophagus under direct vision. The scope was passed slowly to the distal esophagus. The gastroesophageal junction appeared at 41 cm. Extending from this to 40 cm were segments of probable Light's mucosa. There was no overlying esophagitis, lesions, nor ulceration. The scope entered the stomach. There was a small hiatal hernia. The scope was advanced to the pylorus and the duodenum was cannulated to the descending portion. The duodenum including the bulb appeared normal without mass or ulceration. Scope was withdrawn back to the stomach. The gastric antrum and body appeared normal with good peristalsis. The scope was retroflexed, visualizing the proximal stomach carefully, which appeared normal, without any sign of mass or ulceration. Scope was straightened and withdrawn back to the esophagus. Multiple biopsies were obtained between 40 and 41 cm to rule out Light's esophagus. The esophagus proximal to this appeared normal. Scope was withdrawn from the patient. He tolerated the procedure well and was returned to the recovery area in stable condition. IMPRESSION: 1. Gastroesophageal reflux, rule out Light's esophagus. 2. Hiatal hernia. PLAN: The results of the biopsies will be checked. If there is Light's esophagus without dysplasia, I would recommend a repeat upper endoscopy in 3 years. He was advised to continue his current regimen of omeprazole for continued symptomatic relief of reflux. In regard to slightly elevated LFTs, he was found to have an iron saturation of 53% with a ferritin of 969 in August. At that time, his liver profile was normal. I did review this with the patient, as well as his today, I had advised him that we will repeat those along with a genetic test for hereditary hemochromatosis. He will be seen in followup in that regard as well. He reports that he has been abstinent from alcohol since July, and I did advise him to certainly continue that. MD KRISTIN Edwards/MARIE / [id number] MTDD
== END 2023-09-26 13:57 | disposition home or self-care (01) ==
PROVIDERS: PCP Family Medicine; Visit Provider Internal Medicine
PROC: 0DJ08ZZ Inspection of Upper Intestinal Tract, Via Natural or Artificial Opening Endoscopic (ICD-10-PCS; CPT 43235; principal; 2023-09-26 12:10)
DX: K22.70 Barrett's esophagus without dysplasia (principal); K44.9 Diaphragmatic hernia without obstruction or gangrene; K21.9 Gastro-esophageal reflux disease without esophagitis; K76.0 Fatty (change of) liver, not elsewhere classified; R79.89 Other specified abnormal findings of blood chemistry; I10 Essential (primary) hypertension; E11.9 Type 2 diabetes mellitus without complications; E78.5 Hyperlipidemia, unspecified; D86.0 Sarcoidosis of lung; F32.A Depression, unspecified; Z79.84 Long term (current) use of oral hypoglycemic drugs; Z79.899 Other long term (current) drug therapy
CPT/HCPCS: 43239; 82947; 88305; J1596; J2405; J2704

== ENCOUNTER 2023-11-15 07:37 | Outpatient (REF) | payer OTHER, SELFPAY ==
[2023-11-15 11:40] LABS: Alanine Aminotransferase 63 U/L (0-40); Albumin Level 4.2 g/dL (3.5-5.0); Alkaline Phosphatase 60 U/L (39-117); Aspartate Amino Transferase 82 U/L (5-37); Bilirubin Direct 0.3 mg/dL (0.0-0.5); Bilirubin Total 1.1 mg/dL (0.0-1.0); Iron 95 mcg/dL (45-160); Percent Iron Saturation 34 % (15-50); Total Iron Binding Capacity 281 mcg/dL (228-428); Total Protein 7.2 g/dL (6.5-8.0); Unsaturated Iron Binding 186 ug/dL
[2023-11-15 11:41] LABS: Ferritin 1048 ng/mL (20-250)
== END 2023-11-15 07:38 | disposition home or self-care (01) ==
LOC: HO.10HDL 07:37
PROVIDERS: Visit Provider Internal Medicine
DX: R94.5 Abnormal results of liver function studies (principal); E83.19 Other disorders of iron metabolism
CPT/HCPCS: 36415; 80076; 81256; 82728; 83540

== ENCOUNTER 2023-12-27 07:34 | Outpatient (REF) | payer OTHER, SELFPAY ==
[2023-12-27 11:09] LABS: Estimated Average Glucose 200 mg/dL; Hemoglobin A1C 264.4115 umol/L; Hemoglobin A1c % 8.6 % (<6.0); Total Hemoglobin (HGBA1C) 3777.4541 umol/L
[2023-12-27 11:41] LABS: Alanine Aminotransferase 56 U/L (0-40); Anion Gap 10 (12-20); Aspartate Amino Transferase 62 U/L (5-37); Blood Urea Nitrogen 7 mg/dL (9-16); Carbon Dioxide 29 mmol/L (22-29); Chloride 95 mmol/L (96-108); Estimated Glomerular Filt Rate > 60; Glucose Fasting 225 mg/dL (60-99); Potassium 4.6 mmol/L (3.3-5.1); Sodium 129 mmol/L (135-145)
== END 2023-12-27 07:35 | disposition home or self-care (01) ==
LOC: HO.10HDL 07:34
PROVIDERS: Visit Provider Family Medicine
DX: I10 Essential (primary) hypertension (principal); E78.00 Pure hypercholesterolemia, unspecified; E11.9 Type 2 diabetes mellitus without complications; Z79.899 Other long term (current) drug therapy
CPT/HCPCS: 36415; 80051; 82550; 82565; 82947; 83036; 84450; 84460; 84520

== ENCOUNTER 2024-03-08 08:07 | Outpatient (REF) | payer OTHER, SELFPAY | END 2024-03-08 08:08 | disposition home or self-care (01) | LOC: HO.BBR 08:07 | PROVIDERS: PCP Family Medicine; Visit Provider Internal Medicine | DX: E83.19 Other disorders of iron metabolism (principal) | CPT/HCPCS: 85018; 99195 ==

== ENCOUNTER 2024-05-15 08:03 | Outpatient (REF) | payer OTHER, SELFPAY ==
--- OUTSIDE RECORDS SUMMARY | 2024-05-15 08:09 | XMS_ITS | Patient Health Record ---
Author Organization [facility] Address [address] [place] [address] Care Team Providers Care Surgical Garment Assembly Supervisor Name Role Phone Gumaro Sánchez MD Primary Care Provider Ahsan De Leon [phone] ALLERGIES No Known Allergies RESULTS Component Value Reference Range Notes Liver Panel Reviewed date:08/22/2023 11:42:05 PM Interpretation: Performing Lab:[facility], [address] [place] [phone] Notes/Report: Bilirubin Total 1.7 0.0-1.0 mg/dL Bilirubin Direct 0.5 0.0-0.5 mg/dL Aspartate Amino Transferase 31 5-37 U/L Alanine Aminotransferase 36 0-40 U/L Total Protein 7.2 6.5-8.0 g/dL Albumin Level 4.2 3.5-5.0 g/dL Alkaline Phosphatase 71 39-117 U/L IRON PROFILE Reviewed date:09/25/2023 02:40:07 PM Interpretation: Performing Lab:[facility], [address] [place] [phone] Notes/Report: Iron 151 45-160 mcg/dL Total Iron Binding Capacity 283 228-428 mcg/dL Percent Iron Saturation 53 15-50 % Unsaturated Iron Binding 132 Ferritin Reviewed date:09/25/2023 02:40:31 PM Interpretation: Performing Lab:[facility], [address] [place] [phone] Notes/Report: Ferritin 969 20-250 ng/mL Alpha 1 Anti-trypsin Reviewed date:08/23/2023 11:35:09 AM Interpretation: Performing Lab:[facility], [address] [place] [address] Notes/Report: Alpha 1 Anti-trypsin 159 83-199 mg/dL THIS TEST WAS PERFORMED AT: [facility] [address] [place] [phone] VERENICE SALDANA MD Hepatitis B,C Profile Reviewed date:08/23/2023 12:05:11 AM Interpretation: Performing Lab:[facility], [address] [place] [address] Notes/Report: Hepatitis B Surface Antibody NONREACTIVE Nonreactive Nonreactive: < 8.00 mIU/mL Hepatitis B Core Antibody Nonreactive Nonreactive Hepatitis C Antibody Nonreactive Nonreactive Antibodies to HCV not detected; does not exclude early acute HCV infection. Hepatitis B Surface Antigen Negative Negative Glucose, Whole Blood Reviewed date:09/26/2023 09:44:53 PM Interpretation: Performing Lab:[facility], [address] [place] [phone] Notes/Report: Glucose, Whole Blood 247 60-115 mg/dL METER # : [id number] Pathology Reviewed date:10/08/2023 06:37:06 PM Interpretation: Performing Lab:[facility], [address] [place] [phone] Notes/Report: DNA Analysis Hemochromatosis Reviewed date:12/02/2023 04:56:34 PM Interpretation: Performing Lab:[facility], [address] [place] [address] Notes/Report: DNA Analysis Hemochromatosis See Below RESULT: NEGATIVE Interpretation: DNA testing indicates that this individual is negative for the C282Y and H63D pathogenic variants in the HFE gene. This negative result significantly reduces the likelihood of hereditary hemochromatosis (HH) in this individual. However, it does not rule out the presence of other pathogenic variants within the HFE gene or a diagnosis of HH. The risk of this individual to carry an HFE pathogenic variant other than those tested in this assay depends greatly on family and clinical history as well as ethnicity. This assay does not test for other primary or secondary iron overload disorders. Laboratory results and submitted clinical information reviewed by Nava Green, Ph.D., HCLRenae. DETAILED ASSAY INFORMATION: Hereditary hemochromatosis (HH) is an autosomal recessive disorder of iron metabolism that can result in iron overload and potential organ failure. It is one of the most common genetic disorders in individuals of - ancestry, with an estimated carrier frequency of 10%. HH is caused by pathogenic variants in the HFE gene. Most individuals with HH (60-90%) are homozygous for the C282Y pathogenic variant. A smaller percentage of affected individuals are either compound heterozygous for the C282Y and H63D pathogenic variants (3%-8%), or homozygous for the H63D pathogenic variant (approximately 1%). METHODOLOGY: This assay detects two pathogenic variants in the HFE gene, C282Y (NM 030606.2: c.845G>A, p.Yrm995Avk) and H63D (NM 764949.2: c.187C>G, p.Ryj87Urm), that are commonly associated with HH. These variants are detected by multiplex-polymerase chain reaction (PCR) amplification, followed by restriction enzyme digestion and capillary electrophoresis. LIMITATIONS: This assay does not detect other pathogenic variants in the HFE gene that may be associated with HH. Although rare, false positive or false negative results may occur. All results should be interpreted in the context of clinical findings, relevant history, and other laboratory data. Health care providers, please contact your local [facility] [facility] [employer]' genetic counselor or call [phone] ( ) for assistance with the interpretation of these results. This test was developed and its analytical performance characteristics have been determined by [facility] [facility]. It has not been cleared or approved by FDA. This assay has been validated pursuant to the CLIA regulations and is used for clinical purposes. For more information, please refer to http://education.[employer]oat[employer]/faq/hemoch romatosis. (This link is being provided for informational/educationa l purposes only.) Reviewed and signed by Laboratory results and submitted clinical information reviewed by Nava Green, Ph.D., HCLD, Signed on 11/28/2023 at 13:24 THIS TEST WAS PERFORMED AT: [facility] [address] [place] [address] TOMER ATWOOD MD,PHD,KATHY Liver Panel Reviewed date:11/16/2023 05:36:17 PM Interpretation: Performing Lab:[address] [phone] Notes/Report: Bilirubin Total 1.1 0.0-1.0 mg/dL Bilirubin Direct 0.3 0.0-0.5 mg/dL Aspartate Amino Transferase 82 5-37 U/L Alanine Aminotransferase 63 0-40 U/L Total Protein 7.2 6.5-8.0 g/dL Albumin Level 4.2 3.5-5.0 g/dL Alkaline Phosphatase 60 39-117 U/L IRON PROFILE Reviewed date:11/16/2023 05:36:36 PM Interpretation: Performing Lab:[facility], [address] [place] [phone] Notes/Report: Iron 95 45-160 mcg/dL Total Iron Binding Capacity 281 228-428 mcg/dL Percent Iron Saturation 34 15-50 % Unsaturated Iron Binding 186 Ferritin Reviewed date:01/25/2024 04:24:48 PM Interpretation: Performing Lab:[facility], [address] [place] [phone] Notes/Report: Ferritin 1048 20-250 ng/mL Therapeutic Phlebotomy Reviewed date:03/09/2024 09:18:46 PM Interpretation: Performing Lab:[address] [address] Notes/Report: THER/HGB 14.9 14.0-18.0 g/dL THER/HCT TNP 42.0-52.0 % Therapeutic Phlebotomy Phlebotomy Performed 500 mls drawn on 03/08/24. Please note that a copy of this report has been sent to the Primary Care Physician, the ordering physician and any physician designated by patient request. REASON FOR REFERRAL No Information MEDICATIONS Medication SIG (Take, Route, Frequency, Duration) Notes Start Date End Date Status Omeprazole 40 MG 1 Orally Every morni ng for 30 days Active Omeprazole 20 MG Oral for 90 N ot-Taking amLODIPine Besylate 5 MG Oral for 90 Active Mirtazapine 15 MG Oral for 90 Active metFORMIN HCl Active Atorvastatin Calcium Active Sildenafil Citrate 100 MG TAKE 1 TABLET 1HR PRIOR TO INTERCOURSE Oral for 25 Active Metoprolol Succinate ER 50 MG TAKE 1 TABLET BY MOUTH EVERY DAY Oral for 90 Active Naltrexone HCl 50 MG Oral for 90 Active Citalopram Hydrobromide 20 MG Oral for 90 Active Allergy 24-HR 180 MG 1 tablet Swallow wh ole with water; do not take with fruit juices. Orally Once a day for 30 day(s) Active Gabapentin 600 MG 2 tablet Orally 600 mg and 300 mg at hs Active Lisinopril Active Vitamin C 500 MG as directed Orally Active Multivitamin Adult - 1 tablet Orally Onc e a day for 30 day(s) Active IMMUNIZATIONS Vaccine Route Administration Date Status Comme nts Influenza Unknown 01/18/2024 Administered SOCIAL HISTORY Sex Assigned At : Social History Observation Description Sex Assigned At Unknown PROBLEMS Problem Type ICD Code Onset Dates Problem Status W/U Status Risk SNOMED Code Notes Problem Colon cancer screening (Z12.11) Active confirmed 641002469 Problem Esophageal reflux (K21.9) Active confirmed Esophageal reflux (065392917) Problem Gastro-esophageal reflux disease without esophagitis (K21.9) Active confirmed Gastro-esophage a l reflux disease without esophagitis (027286207) Problem History of adenomatous polyp of colon (Z86.010) Active confirmed 828838172 Problem Elevated liver function tests (R79.89) Active confirmed Elevated liver enzymes level (109652312) Problem Preprocedural examination (Z01.818) Active confirmed 84882103 Problem Fatty liver (K76.0) Active confirmed Fa tty liver (803525673) Problem Iron excess (E83.19) Active confirmed Iron excess (92387838) Problem Erosive esophagitis (K22.10) Active confirmed Erosive esophagitis (77367996) Problem Gastritis (K29.70) Active confirmed Gas tritis (0606541) Problem Elevated liver function tests (R94.5) Active confirmed Elevated liver enzymes level (221682067) Problem Erosive gastritis (K29.60) Active confirmed Erosive gastritis (253332643824024 0) Problem Diverticulosis of colon (K57.30) Active confirmed Diverticulosi s of colon (929640833) Problem Gastroesophageal reflux disease, unspecified whether esophagitis present (K21.9) Active confirmed 943221495 VITAL SIGNS Temperature 97.3 degrees Fahrenheit 01/25/2024 Blood pressure diastolic 00 mm Hg 01/25/2024 Height 77 in 01/25/2024 Blood pressure systolic 000 mm Hg 01/25/2024 Weight 270 lb 6 oz lbs 01/25/2024 BMI 32.06 kg/m2 01/25/2024 Encounters Encounter Location Date Provider Diagnosis [facility] [address] [place] [phone] 09/26/2023 Ahsan Barnes Gastro-esophageal re flux disease without esophagitis K21.9 ; Hiatal hernia K44.9 and Gastritis K29.70 [facility] [address] [place] [phone] 07/26/2023 Ahsan Barnes Colon cancer screeni ng Z12.11 ; Erosive esophagitis K22.10 ; Fatty liver K76.0 ; Elevated liver function tests R79.89 and Gastroesophageal reflux disease, unspecified whether esophagitis present K21.9 [facility] [address] [place] [phone] 01/25/2024 Ahsan Barnes Elevated liver funct ion tests R79.89 ; Fatty liver K76.0 ; Colon cancer screening Z12.11 ; Gastroesophageal reflux disease, unspecified whether esophagitis present K21.9 ; History of adenomatous polyp of colon Z86.010 ; Erosive esophagitis K22.10 and Iron excess E83.19 [facility] [address] [place] [phone] 09/25/2023 Ahsan Barnes Elevated liver funct ion tests R94.5 and Iron excess E83.19 [facility] [address] [phone] 10/03/2023 Ahsan Barnes Elevated liver funct ion tests R94.5 and Iron excess E83.19 [facility] [address] [place] [phone] 01/25/2024 Ahsan Barnes [facility] [address] [phone] 01/25/2024 Ahsan Barnes ASSESSMENTS Encounter Date Diagnosis Assessment Notes Treatment Notes Treatment Clinical Notes 09/26/2023 Gastro-esophageal reflux disease without esophagitis (ICD-10 - K21.9) 09/26/2023 Hiatal hernia (ICD-1 0 - K44.9) 07/26/2023 Colon cancer screeni ng (ICD-10 - Z12.11) 07/26/2023 Erosive esophagitis (ICD-10 - K22.10) Do not take the Metformin the night before the endoscopy 01/25/2024 Elevated liver function tests (ICD-10 - R79.89) 01/25/2024 Fatty liver (ICD-10 - K76.0) 09/25/2023 Iron excess (ICD-10 - E83.19) 09/25/2023 Elevated liver function tests (ICD-10 - R94.5) 10/03/2023 Iron excess (ICD-10 - E83.19) 10/03/2023 Elevated liver function tests (ICD-10 - R94.5) 09/26/2023 Gastritis (ICD-10 - K29.70) 07/26/2023 Fatty liver (ICD-10 - K76.0) Avoid alcohol, watch diet, and keep the diabetes as tightly controlled as possible in order to help the fatty liver 01/25/2024 Colon cancer screeni ng (ICD-10 - Z12.11) Needs phlebotomy every 2 months scheduled at [place] [facility] 07/26/2023 Elevated liver function tests (ICD-10 - R79.89) 01/25/2024 Gastroesophageal reflux disease, unspecified whether esophagitis present (ICD-10 - K21.9) Repeat upper endoscopy and colonoscopy in 06/202607/26/2023 Gastroesophageal reflux disease, unspecified whether esophagitis present (ICD-10 - K21.9) 01/25/2024 History of adenomato us polyp of colon (ICD-10 - Z86.010) 01/25/2024 Erosive esophagitis (ICD-10 - K22.10) Continue omeprazole daily [facility]ci 01/25/2024 Iron excess (ICD-10 - E83.19) PLAN OF TREATMENT Pending Test Test Name Order Date LIVER PROFILE 10/03/2023 LIVER PROFILE 09/25/2023 LIVER PROFILE 07/26/2023 IRON + IBC (FE) 10/03/2023 IRON + IBC (FE) 09/25/2023 IRON + IBC (FE) 07/26/2023 HEMOCHROMATOSIS (C282Y) 10/03/2023 HEMOCHROMATOSIS (C282Y) 09/25/2023 Ferritin 10/03/2023 Ferritin 07/26/2023 Ferritin 09/25/2023 Alpha 1 Anti-trypsin 07/26/2023 Hepatitis B,C Profile 07/26/2023 Future Test Test Name Order Date COLONOSCOPY 04/03/2015 UPPER GI ENDOSCOPY 07/27/2022 COLONOSCOPY 07/27/2022 UPPER GI ENDOSCOPY 07/26/2023 Insurance Providers Payer Name Payer Address Payer Phone Subscriber Number Group Number Insured Name Patient Relationship to Insured Coverage Start Date Coverage End Date [employer] ([employer]) [address] [place] [address] [id number] YONY SANTAMARIA Self - patient is the insured MEDICAL (GENERAL) HISTORY Medical History History ICD Code NIDDM Hypertension Depression Hyperlipidemia Denies [place],CVA,renal disease Pulmonary sarcoidosis--diagn osed approx 15 yrs ago--on predniosone at the time--inactive at the present time Negative sleep study in the past Screening colonoscopy in revealed small tubular adenomas that were removed Screening colonoscopy in Sep revealed 2 tubular adenomas that were removed, although the prep was somewhat limited GERD-Upper endoscopy in September of 2022 revealed erosive esophagitis, small hiatal hernia, and erosive gastritis. Biopsies were negative for Light's esophagus and negative for H. pylori. Fatty liver in relation to a lcohol use, poorly controlled diabetes, and hyperlipidemia Elevated iron studies with n egative genetic testing for hereditary hemochromatosis. His ferritin was 1,048 in November of 2023 and 969 in August of 2023. His iron saturation was 34% in November of 2023 and 53% in August of 2023. Upper endoscopy in September revealed complete healing of erosive esophagitis that had been seen in 2022, but there were some small areas of Light's esophagus. Biopsies were negative for dysplasia. Surgical History Surgery Date(Month/Year) Right knee replacement 2013, but planning to have a revision by Dr. Benitez at [facility] 2007 Achilles tendon repair Appendectomy Broken right thumb back in high school
--- OUTSIDE RECORDS SUMMARY | 2024-05-15 08:10 | XMS_ITS ---
Author Organization [facility] Address [address] [place] [phone] Care Team Providers Care Historic Sites Supervisor Name Role Phone Gumaro Sánchez MD Primary Care Provider Unavailab Ahsan Bansal Unavailable [phone] REASON FOR VISIT 1 year office recall Encounters Encounter Location Date Provider Diagnosis [facility] [address] [place] [phone] 01/25/2024 Ahsan Barnes PLAN OF TREATMENT No Information
--- OUTSIDE RECORDS SUMMARY | 2024-05-15 08:10 | XMS_ITS ---
Author Organization [facility] Address [address] [place] [id number] Care Team Providers Care Senior Gamemaster Name Role Phone Gonzalo COHEN, Gumaro Primary Care Provider UnavailAhsan Mcrae [phone] ALLERGIES No Known Allergies REASON FOR VISIT Patient presents today for barretts esophagus MEDICATIONS Medication SIG (Take, Route, Frequency, Duration) Notes Start Date End Date Status Sildenafil Citrate 100 MG TAKE 1 TABLET 1HR PRIOR TO INTERCOURSE Oral for 25 Active Metoprolol Succinate ER 50 MG TAKE 1 TABLET BY MOUTH EVERY DAY Oral for 90 Active Citalopram Hydrobromide 20 MG Oral for 90 Active Omeprazole 40 MG 1 Orally Every morni ng for 30 days Active Omeprazole 20 MG Oral for 90 N ot-Taking amLODIPine Besylate 5 MG Oral for 90 Active Mirtazapine 15 MG Oral for 90 Active metFORMIN HCl Active Atorvastatin Calcium Active Naltrexone HCl 50 MG Oral for 90 Active Allergy 24-HR [...] e a day for 30 day(s) Active VITAL SIGNS Temperature 97.3 degrees Fahrenheit 01/25/20 24 Blood pressure systolic 000 mm Hg 01/25/20 24 Blood pressure diastolic 00 mm Hg 024 Height 77 in 01/25/2024 Weight 270 lb 6 oz lbs 01/25/2024 BMI 32.06 kg/m2 01/25/2024 Encounters Encounter Location Date Provider Diagnosis [facility] [address] [place] [address] 01/25/2024 Ahsan Barnes Elevated liver funct ion tests R79.89 ; Fatty liver K76.0 ; Colon cancer screening Z12.11 ; Gastroesophageal reflux disease, unspecified whether esophagitis present K21.9 ; History of adenomatous polyp of colon Z86.010 ; Erosive esophagitis K22.10 and Iron excess E83.19 ASSESSMENTS Encounter Date Diagnosis Assessment Notes Treatment Notes Treatment Clinical Notes 01/25/2024 Elevated liver function tests (ICD-10 - R79.89) 01/25/2024 Fatty liver (ICD-10 - K76.0) 01/25/2024 Colon cancer screeni ng (ICD-10 - Z12.11) Needs phlebotomy every 2 months scheduled at the [facility] 01/25/2024 Gastroesophageal reflux disease, unspecified whether esophagitis present (ICD-10 - K21.9) Repeat upper endoscopy and colonoscopy in 06/202601/25/2024 History of adenomato us polyp of colon (ICD-10 - Z86.010) 01/25/2024 Erosive esophagitis (ICD-10 - K22.10) Continue omeprazole daily usp 01/25/2024 Iron excess (ICD-10 - E83.19) PLAN OF TREATMENT Treatment Notes Assessment Notes Colon cancer screening Needs phlebotomy every 2 months scheduled at the [facility] Gastroesophageal reflux dise ase, unspecified whether esophagitis present Repeat upper endoscopy and colonoscopy in 06/2026 Erosive esophagitis 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 Next Appt Details Follow Up: 1 Year, Reason: Progress Notes * Examination Category Sub-Category Detail Notes General Examination GENERAL APPEARANCE: pleasant , well nourished, well developed, in no acute distress HEAD: EYES: sclera non-icteric EARS: NOSE: THROAT: NECK/THYROID: no cervical lymphade nopathy, neck supple HEART: S1, S2 normal CHEST: LUNGS: clear to auscultatio n bilaterally ABDOMEN: normal bowel sounds, no guarding or rigidity, no guarding or rigidity, no masses palpable, soft, nontender, nondistended NEUROLOGIC: alert and oriented SKIN: nonjaundiced, no spi twin angiomata EXTREMITIES: no edema PERIPHERAL PULSES: BACK: BREASTS: MUSCULOSKELETAL: MALE GENITOURINARY: LYMPH NODES: RECTAL EXAM: FEMALE GENITOURINARY: ORAL CAVITY: mucosa moist
--- OUTSIDE RECORDS SUMMARY | 2024-05-15 08:10 | XMS_ITS ---
Author Organization [facility] Address [address] [place] [address] Care Team Providers Care Window Treatment Installer Name Role Phone Gumaro Sánchez MD Primary Care Provider Unavailab Ahsan Bansal Unavailable [phone] REASON FOR VISIT phlebotomy order Encounters Encounter Location Date Provider Diagnosis [facility] [address] [place] [id number] 01/25/2024 hAsan Barnes PLAN OF TREATMENT No Information
[2024-05-15 09:56] LABS: Alanine Aminotransferase 64 U/L (0-40); Albumin Level 3.8 g/dL (3.5-5.0); Alkaline Phosphatase 64 U/L (39-117); Aspartate Amino Transferase 72 U/L (5-37); Bilirubin Direct 0.3 mg/dL (0.0-0.5); Iron 98 mcg/dL (45-160); Percent Iron Saturation 34 % (15-50); Total Iron Binding Capacity 287 mcg/dL (228-428); Total Protein 6.5 g/dL (6.5-8.0); Unsaturated Iron Binding 189 ug/dL
[2024-05-15 10:02] LABS: Ferritin 358 ng/mL (20-250)
== END 2024-05-15 08:04 | disposition home or self-care (01) ==
LOC: HO.BBR 08:03
PROVIDERS: PCP Family Medicine; Visit Provider Internal Medicine
DX: E83.19 Other disorders of iron metabolism (principal)
CPT/HCPCS: 36415; 80076; 82728; 83540; 85018; 99195

== ENCOUNTER 2024-07-17 08:06 | Outpatient (REF) | payer OTHER, SELFPAY ==
--- OUTSIDE RECORDS SUMMARY | 2024-07-17 08:10 | XMS_ITS | Patient Health Record ---
Author Organization [facility] Address [address] [place] [address] Care Team Providers Care Neuro Ophthalmologist Name Role Phone Gumaro Sánchez MD Primary Care Provider Ahsan De Leon [phone] Allergies No Known Allergies Results Component Value Reference Range Notes Liver Panel Reviewed date:08/22/2023 11:42:05 PM Interpretation: Performing Lab:[facility], [address] [place] [phone] Notes/Report: Bilirubin Total 1.7 0.0-1.0 mg/dL Bilirubin Direct 0.5 0.0-0.5 mg/dL Aspartate Amino Transferase 31 5-37 U/L Alanine Aminotransferase 36 0-40 U/L Total Protein 7.2 6.5-8.0 g/dL Albumin Level 4.2 3.5-5.0 g/dL Alkaline Phosphatase 71 39-117 U/L IRON PROFILE Reviewed date:09/25/2023 02:40:07 PM Interpretation: Performing Lab:[facility], [address] [place] [phone] Notes/Report: Iron 151 45-160 mcg/dL Total Iron Binding Capacity 283 228-428 mcg/dL Percent Iron Saturation 53 15-50 % Unsaturated Iron Binding 132 Ferritin Reviewed date:09/25/2023 02:40:31 PM Interpretation: Performing Lab:[facility], [address] [place] [phone] Notes/Report: Ferritin 969 20-250 ng/mL Alpha 1 Anti-trypsin Reviewed date:08/23/2023 11:35:09 AM Interpretation: Performing Lab:[facility], [address] [place] [phone] Notes/Report: Alpha 1 Anti-trypsin 159 83-199 mg/dL THIS TEST WAS PERFORMED AT: [facility] [address] [place] [phone] VERENICE SALDANA MD Hepatitis B,C Profile Reviewed date:08/23/2023 12:05:11 AM Interpretation: Performing Lab:[facility], [address] [place] [phone] Notes/Report: Hepatitis B Surface Antibody NONREACTIVE Nonreactive Nonreactive: < 8.00 mIU/mL Hepatitis B Core Antibody Nonreactive Nonreactive Hepatitis C Antibody Nonreactive Nonreactive Antibodies to HCV not detected; does not exclude early acute HCV infection. Hepatitis B Surface Antigen Negative Negative Glucose, Whole Blood Reviewed date:09/26/2023 09:44:53 PM Interpretation: Performing Lab:[facility], [address] [place] [phone] Notes/Report: Glucose, Whole Blood 247 60-115 mg/dL METER # : [id number] Pathology Reviewed date:10/08/2023 06:37:06 PM Interpretation: Performing Lab:[facility], [address] [place] [phone] Notes/Report: Name: JosehayderYony Age/Sex: 58/M : 1965 Unit#: [id number] Attend Dr: Ahsan Barnes MD Re09/26/23 Status: [facility] Location: [facility] Disch: SPEC : [id number] RECD: 09/26/23 STATUS: LELA ARZATE NUM: [id number] MOISES: 09/26/23 [facility] DR: Ahsan Barnes MD ENTERED: 09/26/23 SP TYPE: Surgical OTHR DR: Gumaro Sánchez MD ORDERED: Gross Micro L4 Diagnosis Esophagus, 40-41 cm, 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 - No dysplasia seen. - Squamous mucosa within normal limits. Clinical History Pre-Op Dx: Reflux Post-Op Dx: Hiatal hernia, reflux Microscopic Description Microscopic sections reviewed. Material Received Esophagus 40 - 41 cm, reflux r/o Light's Gross Description Received in formalin labeled ?esophagus 40-41 cm? are 6 bryant-white and bonner-pink irregular tissue fragments ranging from 0.2-0.3 cm, submitted in toto in a cassette labeled A. CEDS Copies To: Gumaro Sánchez MD [address] [place] [address] [address] [place] [address] Ahsan Barnes MD [facility] [address] [place] [address] [address] [place], [place] [id number] Signed (signature on file) Isaac Dale MD 09/28/23 1016 END OF REPORT DNA Analysis Hemochromatosis Reviewed date:12/02/2023 04:56:34 PM Interpretation: Performing Lab:[facility], [address] [place] [phone] Notes/Report: DNA Analysis Hemochromatosis See Below RESULT: [...] clinical information reviewed by Nava Green, Ph.D., [facility]. DETAILED ASSAY INFORMATION: Hereditary hemochromatosis (HH) is [...] variants in the HFE gene, C282Y (NM 920159.2: c.845G>A, p.Ehz001Wiz) and H63D (NM 634316.2: c.187C>G, p.Rkl93Iiz), that are commonly associated with HH. These [...] Health care providers, please contact your local [employer]' genetic counselor or call [phone] ( ) for assistance with the interpretation of these results. This test was developed and its analytical performance characteristics have been determined by [employer] [facility]. It has not been cleared or approved by FDA. This assay has been validated pursuant to the CLIA regulations and is used for clinical purposes. For more information, please refer to http://education.[employer]/faq/hemoch romatosis. (This link is being provided for informational/educationa l purposes only.) Reviewed and signed by Laboratory results and submitted clinical information reviewed by Nava Green, Ph.D., [facility], Signed on 11/28/2023 at 13:24 THIS TEST WAS PERFORMED AT: [facility] [address] [place] [address] TOMER ATWOOD MD,PHD,KATHY Liver Panel Reviewed date:11/16/2023 05:36:17 PM Interpretation: Performing Lab:[address] [phone] Notes/Report: Bilirubin Total 1.1 0.0-1.0 mg/dL Bilirubin Direct 0.3 0.0-0.5 mg/dL Aspartate Amino Transferase 82 5-37 U/L Alanine Aminotransferase 63 0-40 U/L Total Protein 7.2 6.5-8.0 g/dL Albumin Level 4.2 3.5-5.0 g/dL Alkaline Phosphatase 60 39-117 U/L IRON PROFILE Reviewed date:11/16/2023 05:36:36 PM Interpretation: Performing Lab:[address] [phone] Notes/Report: Iron 95 45-160 mcg/dL Total Iron Binding Capacity 281 228-428 mcg/dL Percent Iron Saturation 34 15-50 % Unsaturated Iron Binding 186 Ferritin Reviewed date:01/25/2024 04:24:48 PM Interpretation: Performing Lab:[facility], [address] [place] [phone] Notes/Report: Ferritin 1048 20-250 ng/mL Therapeutic Phlebotomy Reviewed date:03/09/2024 09:18:46 PM Interpretation: Performing Lab:[address] [phone] Notes/Report: THER/HGB 14.9 14.0-18.0 g/dL THER/HCT TNP 42.0-52.0 % Therapeutic Phlebotomy Phlebotomy Performed 500 mls drawn on 03/08/24. Please note that a copy of this report has been sent to the Primary Care Physician, the ordering physician and any physician designated by patient request. Liver Panel Reviewed date:05/15/2024 12:41:43 PM Interpretation: Performing Lab:[address] [phone] Notes/Report: Bilirubin Total 1.0 0.0-1.0 mg/dL Bilirubin Direct 0.3 0.0-0.5 mg/dL Aspartate Amino Transferase 72 5-37 U/L Alanine Aminotransferase 64 0-40 U/L Total Protein 6.5 6.5-8.0 g/dL Albumin Level 3.8 3.5-5.0 g/dL Alkaline Phosphatase 64 39-117 U/L IRON PROFILE Reviewed date:05/15/2024 12:41:32 PM Interpretation: Performing Lab:[address] [phone] Notes/Report: Iron 98 45-160 mcg/dL Total Iron Binding Capacity 287 228-428 mcg/dL Percent Iron Saturation 34 15-50 % Unsaturated Iron Binding 189 Ferritin (Not yet reviewed b y provider) Interpretation: Performing Lab:[facility], [address] [place] [phone] Notes/Report: Ferritin 358 20-250 ng/mL Therapeutic Phlebotomy Reviewed date:05/15/2024 12:41:11 PM Interpretation: Performing Lab:[address] [phone] Notes/Report: THER/HGB 15.4 14.0-18.0 g/dL THER/HCT TNP 42.0-52.0 % Therapeutic Phlebotomy Phlebotomy Performed 500 mls drawn on 05/15/24. Please note that a copy of this report has been sent to the Primary Care Physician, the ordering physician and any physician designated by patient request. Reason For Referral No Information Medications Medication SIG (Take, Route, Frequency, Duration) Notes [...] e a day for 30 day(s) Active Immunizations Vaccine Route Administration Date Status Comme nts Influenza Unknown 01/18/2024 Administered Problems Problem Type SNOMED Code ICD Code Onset Dates Problem Status W/U Status Risk Notes Problem 686552098 Colon cancer screening (Z12.11) Active confirmed Problem Esophageal reflux (296096474) Esophageal reflux (K21.9) Active confirmed Problem Gastro-esophageal reflux disease without esophagitis (244251925) Gastro-esophageal reflux disease without esophagitis (K21.9) Active confirmed Problem 387170284 History of adenomatous polyp of colon (Z86.010) Active confirmed Problem Elevated liver enzymes level (870857348) Elevated liver function tests (R79.89) Active confirmed Problem 22352412 Preprocedural examination (Z01.818) Active confirmed Problem Fatty liver (966074388) Fatty liver (K76.0) Active confirmed Problem Iron excess (75467183) Iron excess (E83.19) Active confirmed Problem Erosive esophagitis (42147754) Erosive esophagitis (K22.10) Active confirmed Problem Gastritis (7024374) Gastritis (K29.70) Active confirmed Problem Elevated liver enzymes level (694756799) Elevated liver function tests (R94.5) Active confirmed Problem Erosive gastritis (9339934470832321 ) Erosive gastritis (K29.60) Active confirmed Problem Diverticulosis of colon (104173246) Diverticulosis of colon (K57.30) Active confirmed Problem 541079139 Gastroesophageal reflux disease, unspecified whether esophagitis present (K21.9) Active confirmed Vital Signs Temperature 97.3 degrees Fahrenheit 01/25/2024 Blood pressure diastolic 00 mm Hg 01/25/2024 Height 77 in 01/25/2024 Blood pressure systolic 000 mm Hg 01/25/2024 Weight 270 lb 6 oz lbs 01/25/2024 BMI 32.06 kg/m2 01/25/2024 Encounters Encounter Location Date Provider Diagnosis [facility] [address] [place] [phone] 09/26/2023 Ahsan Barnes Gastro-esophageal re flux disease without esophagitis K21.9 ; Hiatal hernia K44.9 and Gastritis K29.70 [facility] [address] [place] [phone] 07/26/2023 Ahsan Barnes Colon cancer screeni ng Z12.11 ; Erosive esophagitis K22.10 ; Fatty liver K76.0 ; Elevated liver function tests R79.89 and Gastroesophageal reflux disease, unspecified whether esophagitis present K21.9 [facility] [address] [place] [phone] 01/25/2024 Ahsan Barnes Elevated liver funct ion tests R79.89 ; Fatty liver K76.0 ; Colon cancer screening Z12.11 ; Gastroesophageal reflux disease, unspecified whether esophagitis present K21.9 ; History of adenomatous polyp of colon Z86.010 ; Erosive esophagitis K22.10 and Iron excess E83.19 [facility] [address] [place] [phone] 09/25/2023 Ahsan Barnes Elevated liver funct ion tests R94.5 and Iron excess E83.19 [facility] [address] [place] [phone] 10/03/2023 Ahsan Barnes Elevated liver funct ion tests R94.5 and Iron excess E83.19 [facility] [address] [phone] 01/25/2024 Ahsan Barnes [facility] [address] [place] [address] 01/25/2024 Ahasn Barnes Assessments Encounter Date Diagnosis (ICD Code) Assessment Notes Treatment Notes Treatment Clinical Notes Section Notes 09/26/2023 Gastro-esophageal reflux disease without esophagitis (ICD-10 - K21.9) 09/26/2023 Hiatal hernia (ICD-10 - K44.9) 07/26/2023 Colon cancer screening (ICD-10 - Z12.11) Overall, Yony appears well. We did review the findings on his GI procedures from last summer. I advised him of the need for a followup colonoscopy in 2025 due to the limited prep last year and his history of tubular adenomas. In regard to the erosive esophagitis I did advise him that I would recommend a repeat upper endoscopy to assess for healing and to be sure there is no underlying Light's esophagus. In the meantime, I advised him to continue his daily omeprazole as it does seem to be giving him good symptomatic improvement. I did advise him to certainly avoid alcohol and to continue to watch his diet and weight in regard to helping his reflux as well. Full consent was obtained from him for the endoscopy, including risks of bleeding and perforation. The procedure will be done with monitored anesthesia care. He was given the below instructions regarding adjusting his medication for the procedure. In regard to the history of fatty liver we did review its association certainly with his alcohol use, poorly controlled diabetes, and his weight. We did review the potential for fatty liver to silently progress to cirrhosis with associated early morbidity and mortality. Therefore, we did review that is very important that he get the risk factors for the fatty liver under good control by abstaining completely from alcohol, watch his diet carefully, and maintaining as good control of his diabetes as possible. I did recommend some other testing to rule out other causes of liver disease, although I think that is unlikely. I did order the below laboratories in that regard. I don't think he needs any further imaging of his liver given the ultrasound results from February of 2022. I don't think a liver biopsy is required unless the LFTs were to rise to over 2-1/2-3 times normal or some other etiology is suspected based on his upcoming lab work. Yony was comfortable with this plan. Thank you again for allowing me to participate in Yony's care. I shall continue to keep you advised of his progress. 07/26/2023 Erosive esophagitis (ICD-10 - K22.10) Do not take the Metformin the night before the endoscopy Overall, Yony appears well. We did review the findings on his GI procedures from last summer. I advised him of the need for a followup colonoscopy in 2025 due to the limited prep last year and his history of tubular adenomas. In regard to the erosive esophagitis I did advise him that I would recommend a repeat upper endoscopy to assess for healing and to be sure there is no underlying Light's esophagus. In the meantime, I advised him to continue his daily omeprazole as it does seem to be giving him good symptomatic improvement. I did advise him to certainly avoid alcohol and to continue to watch his diet and weight in regard to helping his reflux as well. Full consent was obtained from him for the endoscopy, including risks of bleeding and perforation. The procedure will be done with monitored anesthesia care. He was given the below instructions regarding adjusting his medication for the procedure. In regard to the history of fatty liver we did review its association certainly with his alcohol use, poorly controlled diabetes, and his weight. We did review the potential for fatty liver to silently progress to cirrhosis with associated early morbidity and mortality. Therefore, we did review that is very important that he get the risk factors for the fatty liver under good control by abstaining completely from alcohol, watch his diet carefully, and maintaining as good control of his diabetes as possible. I did recommend some other testing to rule out other causes of liver disease, although I think that is unlikely. I did order the below laboratories in that regard. I don't think he needs any further imaging of his liver given the ultrasound results from February of 2022. I don't think a liver biopsy is required unless the LFTs were to rise to over 2-1/2-3 times normal or some other etiology is suspected based on his upcoming lab work. Yony was comfortable with this plan. Thank you again for allowing me to participate in Yony's care. I shall continue to keep you advised of his progress. 01/25/2024 Elevated liver function tests (ICD-10 - R79.89) Overall, Yony appears well. He is remaining stable on his daily omeprazole 40 mg in regard to his previous reflux symptoms. We did review the findings on the most recent endoscopy in detail in regard to the healing of the esophagitis and the finding of the underlying Light's esophagus. We reviewed the theoretical increased incidence of esophageal cancer in patients with Light's esophagus. We reviewed that he needs to stay on his omeprazole long-term and he needs to continue to avoid alcohol long-term due to it being a risk factor for worsening reflux and esophageal cancer, as well as other systemic problems including liver disease. We reviewed the need for a followup upper endoscopy in 2026 for surveillance in regard to Light's esophagus. We will plan to have him undergo his followup screening colonoscopy at that time as well. In regard to the underlying elevated LFTs we did review that this is due to a combination of fatty liver and some alcohol-related liver disease, as well as perhaps some iron-induced liver disease even though he does not appear to have the underlying hereditary hemochromatosis based on genetic markers. Given the persistent and significant elevation of the ferritin level, along with the persistent elevation of his liver enzymes, I did recommend that he have a periodic phlebotomy every 2 months to try to normalize his ferritin and eliminate that risk factor for liver disease. I shall arrange that through the [facility]. I did review with him that getting better control of his diabetes, continuing to avoid alcohol completely, watching his diet, and losing some weight, would help with his fatty liver as well. We did review that at some point he may need a liver biopsy for further assessment but at this point I think we shall hold off on that and see how his labs do with the phlebotomies and hopeful correction of the other risk factors for fatty liver. At this point, if things remain stable, I will plan to see Yony in one year for a followup office visit. We shall continue to follow his iron studies as he has his periodic phlebotomies in the meantime. We will repeat imaging of his liver next year when I see him. I did advise him that depending upon his clinical course he may eventually need a liver biopsy for further assessment as well. Yony was comfortable with this plan. Thank you again for allowing me to participate in Yony's care. I shall continue to keep you advised of his progress. 01/25/2024 Fatty liver (ICD-10 - K76.0) Overall, Yony appears well. He is remaining stable on his daily omeprazole 40 mg in regard to his previous reflux symptoms. We did review the findings on the most recent endoscopy in detail in regard to the healing of the esophagitis and the finding of the underlying Light's esophagus. We reviewed the theoretical increased incidence of esophageal cancer in patients with Light's esophagus. We reviewed that he needs to stay on his omeprazole long-term and he needs to continue to avoid alcohol long-term due to it being a risk factor for worsening reflux and esophageal cancer, as well as other systemic problems including liver disease. We reviewed the need for a followup upper endoscopy in 2026 for surveillance in regard to Light's esophagus. We will plan to have him undergo his followup screening colonoscopy at that time as well. In regard to the underlying elevated LFTs we did review that this is due to a combination of fatty liver and some alcohol-related liver disease, as well as perhaps some iron-induced liver disease even though he does not appear to have the underlying hereditary hemochromatosis based on genetic markers. Given the persistent and significant elevation of the ferritin level, along with the persistent elevation of his liver enzymes, I did recommend that he have a periodic phlebotomy every 2 months to try to normalize his ferritin and eliminate that risk factor for liver disease. I shall arrange that through the [facility]. I did review with him that getting better control of his diabetes, continuing to avoid alcohol completely, watching his diet, and losing some weight, would help with his fatty liver as well. We did review that at some point he may need a liver biopsy for further assessment but at this point I think we shall hold off on that and see how his labs do with the phlebotomies and hopeful correction of the other risk factors for fatty liver. At this point, if things remain stable, I will plan to see Yony in one year for a followup office visit. We shall continue to follow his iron studies as he has his periodic phlebotomies in the meantime. We will repeat imaging of his liver next year when I see him. I did advise him that depending upon his clinical course he may eventually need a liver biopsy for further assessment as well. Yony was comfortable with this plan. Thank you again for allowing me to participate in Yony's care. I shall continue to keep you advised of his progress. 09/25/2023 Iron excess (ICD-10 - E83.19) 09/25/2023 Elevated liver function tests (ICD-10 - R94.5) 10/03/2023 Iron excess (ICD-10 - E83.19) 10/03/2023 Elevated liver function tests (ICD-10 - R94.5) 09/26/2023 Gastritis (ICD-10 - K29.70) 07/26/2023 Fatty liver (ICD-10 - K76.0) Avoid alcohol, watch diet, and keep the diabetes as tightly controlled as possible in order to help the fatty liver Overall, Yony appears well. We did review the findings on his GI procedures from last summer. I advised him of the need for a followup colonoscopy in 2025 due to the limited prep last year and his history of tubular adenomas. In regard to the erosive esophagitis I did advise him that I would recommend a repeat upper endoscopy to assess for healing and to be sure there is no underlying Light's esophagus. In the meantime, I advised him to continue his daily omeprazole as it does seem to be giving him good symptomatic improvement. I did advise him to certainly avoid alcohol and to continue to watch his diet and weight in regard to helping his reflux as well. Full consent was obtained from him for the endoscopy, including risks of bleeding and perforation. The procedure will be done with monitored anesthesia care. He was given the below instructions regarding adjusting his medication for the procedure. In regard to the history of fatty liver we did review its association certainly with his alcohol use, poorly controlled diabetes, and his weight. We did review the potential for fatty liver to silently progress to cirrhosis with associated early morbidity and mortality. Therefore, we did review that is very important that he get the risk factors for the fatty liver under good control by abstaining completely from alcohol, watch his diet carefully, and maintaining as good control of his diabetes as possible. I did recommend some other testing to rule out other causes of liver disease, although I think that is unlikely. I did order the below laboratories in that regard. I don't think he needs any further imaging of his liver given the ultrasound results from February of 2022. I don't think a liver biopsy is required unless the LFTs were to rise to over 2-1/2-3 times normal or some other etiology is suspected based on his upcoming lab work. Yony was comfortable with this plan. Thank you again for allowing me to participate in Yony's care. I shall continue to keep you advised of his progress. 01/25/2024 Colon cancer screening (ICD-10 - Z12.11) Needs phlebotomy every 2 months scheduled at the [facility] Overall, Yony appears well. He is remaining stable on his daily omeprazole 40 mg in regard to his previous reflux symptoms. We did review the findings on the most recent endoscopy in detail in regard to the healing of the esophagitis and the finding of the underlying Light's esophagus. We reviewed the theoretical increased incidence of esophageal cancer in patients with Light's esophagus. We reviewed that he needs to stay on his omeprazole long-term and he needs to continue to avoid alcohol long-term due to it being a risk factor for worsening reflux and esophageal cancer, as well as other systemic problems including liver disease. We reviewed the need for a followup upper endoscopy in 2026 for surveillance in regard to Light's esophagus. We will plan to have him undergo his followup screening colonoscopy at that time as well. In regard to the underlying elevated LFTs we did review that this is due to a combination of fatty liver and some alcohol-related liver disease, as well as perhaps some iron-induced liver disease even though he does not appear to have the underlying hereditary hemochromatosis based on genetic markers. Given the persistent and significant elevation of the ferritin level, along with the persistent elevation of his liver enzymes, I did recommend that he have a periodic phlebotomy every 2 months to try to normalize his ferritin and eliminate that risk factor for liver disease. I shall arrange that through the [facility]. I did review with him that getting better control of his diabetes, continuing to avoid alcohol completely, watching his diet, and losing some weight, would help with his fatty liver as well. We did review that at some point he may need a liver biopsy for further assessment but at this point I think we shall hold off on that and see how his labs do with the phlebotomies and hopeful correction of the other risk factors for fatty liver. At this point, if things remain stable, I will plan to see Yony in one year for a followup office visit. We shall continue to follow his iron studies as he has his periodic phlebotomies in the meantime. We will repeat imaging of his liver next year when I see him. I did advise him that depending upon his clinical course he may eventually need a liver biopsy for further assessment as well. Yony was comfortable with this plan. Thank you again for allowing me to participate in Yony's care. I shall continue to keep you advised of his progress. 07/26/2023 Elevated liver function tests (ICD-10 - R79.89) Overall, Yony appears well. We did review the findings on his GI procedures from last summer. I advised him of the need for a followup colonoscopy in 2025 due to the limited prep last year and his history of tubular adenomas. In regard to the erosive esophagitis I did advise him that I would recommend a repeat upper endoscopy to assess for healing and to be sure there is no underlying Light's esophagus. In the meantime, I advised him to continue his daily omeprazole as it does seem to be giving him good symptomatic improvement. I did advise him to certainly avoid alcohol and to continue to watch his diet and weight in regard to helping his reflux as well. Full consent was obtained from him for the endoscopy, including risks of bleeding and perforation. The procedure will be done with monitored anesthesia care. He was given the below instructions regarding adjusting his medication for the procedure. In regard to the history of fatty liver we did review its association certainly with his alcohol use, poorly controlled diabetes, and his weight. We did review the potential for fatty liver to silently progress to cirrhosis with associated early morbidity and mortality. Therefore, we did review that is very important that he get the risk factors for the fatty liver under good control by abstaining completely from alcohol, watch his diet carefully, and maintaining as good control of his diabetes as possible. I did recommend some other testing to rule out other causes of liver disease, although I think that is unlikely. I did order the below laboratories in that regard. I don't think he needs any further imaging of his liver given the ultrasound results from February of 2022. I don't think a liver biopsy is required unless the LFTs were to rise to over 2-1/2-3 times normal or some other etiology is suspected based on his upcoming lab work. Yony was comfortable with this plan. Thank you again for allowing me to participate in Yony's care. I shall continue to keep you advised of his progress. 01/25/2024 Gastroesophageal reflux disease, unspecified whether esophagitis present (ICD-10 - K21.9) Repeat upper endoscopy and colonoscopy in 06/2026 Overall, Yony appears well. He is remaining stable on his daily omeprazole 40 mg in regard to his previous reflux symptoms. We did review the findings on the most recent endoscopy in detail in regard to the healing of the esophagitis and the finding of the underlying Light's esophagus. We reviewed the theoretical increased incidence of esophageal cancer in patients with Light's esophagus. We reviewed that he needs to stay on his omeprazole long-term and he needs to continue to avoid alcohol long-term due to it being a risk factor for worsening reflux and esophageal cancer, as well as other systemic problems including liver disease. We reviewed the need for a followup upper endoscopy in 2026 for surveillance in regard to Light's esophagus. We will plan to have him undergo his followup screening colonoscopy at that time as well. In regard to the underlying elevated LFTs we did review that this is due to a combination of fatty liver and some alcohol-related liver disease, as well as perhaps some iron-induced liver disease even though he does not appear to have the underlying hereditary hemochromatosis based on genetic markers. Given the persistent and significant elevation of the ferritin level, along with the persistent elevation of his liver enzymes, I did recommend that he have a periodic phlebotomy every 2 months to try to normalize his ferritin and eliminate that risk factor for liver disease. I shall arrange that through the [facility]. I did review with him that getting better control of his diabetes, continuing to avoid alcohol completely, watching his diet, and losing some weight, would help with his fatty liver as well. We did review that at some point he may need a liver biopsy for further assessment but at this point I think we shall hold off on that and see how his labs do with the phlebotomies and hopeful correction of the other risk factors for fatty liver. At this point, if things remain stable, I will plan to see Yony in one year for a followup office visit. We shall continue to follow his iron studies as he has his periodic phlebotomies in the meantime. We will repeat imaging of his liver next year when I see him. I did advise him that depending upon his clinical course he may eventually need a liver biopsy for further assessment as well. Yony was comfortable with this plan. Thank you again for allowing me to participate in Yony's care. I shall continue to keep you advised of his progress. 07/26/2023 Gastroesophageal reflux disease, unspecified whether esophagitis present (ICD-10 - K21.9) Overall, Yony appears well. We did review the findings on his GI procedures from last summer. I advised him of the need for a followup colonoscopy in 2025 due to the limited prep last year and his history of tubular adenomas. In regard to the erosive esophagitis I did advise him that I would recommend a repeat upper endoscopy to assess for healing and to be sure there is no underlying Light's esophagus. In the meantime, I advised him to continue his daily omeprazole as it does seem to be giving him good symptomatic improvement. I did advise him to certainly avoid alcohol and to continue to watch his diet and weight in regard to helping his reflux as well. Full consent was obtained from him for the endoscopy, including risks of bleeding and perforation. The procedure will be done with monitored anesthesia care. He was given the below instructions regarding adjusting his medication for the procedure. In regard to the history of fatty liver we did review its association certainly with his alcohol use, poorly controlled diabetes, and his weight. We did review the potential for fatty liver to silently progress to cirrhosis with associated early morbidity and mortality. Therefore, we did review that is very important that he get the risk factors for the fatty liver under good control by abstaining completely from alcohol, watch his diet carefully, and maintaining as good control of his diabetes as possible. I did recommend some other testing to rule out other causes of liver disease, although I think that is unlikely. I did order the below laboratories in that regard. I don't think he needs any further imaging of his liver given the ultrasound results from February of 2022. I don't think a liver biopsy is required unless the LFTs were to rise to over 2-1/2-3 times normal or some other etiology is suspected based on his upcoming lab work. Yony was comfortable with this plan. Thank you again for allowing me to participate in Yony's care. I shall continue to keep you advised of his progress. 01/25/2024 History of adenomatous polyp of colon (ICD-10 - Z86.010) Overall, Yony appears well. He is remaining stable on his daily omeprazole 40 mg in regard to his previous reflux symptoms. We did review the findings on the most recent endoscopy in detail in regard to the healing of the esophagitis and the finding of the underlying Light's esophagus. We reviewed the theoretical increased incidence of esophageal cancer in patients with Light's esophagus. We reviewed that he needs to stay on his omeprazole long-term and he needs to continue to avoid alcohol long-term due to it being a risk factor for worsening reflux and esophageal cancer, as well as other systemic problems including liver disease. We reviewed the need for a followup upper endoscopy in 2026 for surveillance in regard to Light's esophagus. We will plan to have him undergo his followup screening colonoscopy at that time as well. In regard to the underlying elevated LFTs we did review that this is due to a combination of fatty liver and some alcohol-related liver disease, as well as perhaps some iron-induced liver disease even though he does not appear to have the underlying hereditary hemochromatosis based on genetic markers. Given the persistent and significant elevation of the ferritin level, along with the persistent elevation of his liver enzymes, I did recommend that he have a periodic phlebotomy every 2 months to try to normalize his ferritin and eliminate that risk factor for liver disease. I shall arrange that through the [facility]. I did review with him that getting better control of his diabetes, continuing to avoid alcohol completely, watching his diet, and losing some weight, would help with his fatty liver as well. We did review that at some point he may need a liver biopsy for further assessment but at this point I think we shall hold off on that and see how his labs do with the phlebotomies and hopeful correction of the other risk factors for fatty liver. At this point, if things remain stable, I will plan to see Yony in one year for a followup office visit. We shall continue to follow his iron studies as he has his periodic phlebotomies in the meantime. We will repeat imaging of his liver next year when I see him. I did advise him that depending upon his clinical course he may eventually need a liver biopsy for further assessment as well. Yony was comfortable with this plan. Thank you again for allowing me to participate in Yony's care. I shall continue to keep you advised of his progress. 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 He is remaining stable on his daily omeprazole 40 mg in regard to his previous reflux symptoms. We did review the findings on the most recent endoscopy in detail in regard to the healing of the esophagitis and the finding of the underlying Light's esophagus. We reviewed the theoretical increased incidence of esophageal cancer in patients with Light's esophagus. We reviewed that he needs to stay on his omeprazole long-term and he needs to continue to avoid alcohol long-term due to it being a risk factor for worsening reflux and esophageal cancer, as well as other systemic problems including liver disease. We reviewed the need for a followup upper endoscopy in 2026 for surveillance in regard to Light's esophagus. We will plan to have him undergo his followup screening colonoscopy at that time as well. In regard to the underlying elevated LFTs we did review that this is due to a combination of fatty liver and some alcohol-related liver disease, as well as perhaps some iron-induced liver disease even though he does not appear to have the underlying hereditary hemochromatosis based on genetic markers. Given the persistent and significant elevation of the ferritin level, along with the persistent elevation of his liver enzymes, I did recommend that he have a periodic phlebotomy every 2 months to try to normalize his ferritin and eliminate that risk factor for liver disease. I shall arrange that through the [facility]. I did review with him that getting better control of his diabetes, continuing to avoid alcohol completely, watching his diet, and losing some weight, would help with his fatty liver as well. We did review that at some point he may need a liver biopsy for further assessment but at this point I think we shall hold off on that and see how his labs do with the phlebotomies and hopeful correction of the other risk factors for fatty liver. At this point, if things remain stable, I will plan to see Yony in one year for a followup office visit. We shall continue to follow his iron studies as he has his periodic phlebotomies in the meantime. We will repeat imaging of his liver next year when I see him. I did advise him that depending upon his clinical course he may eventually need a liver biopsy for further assessment as well. Yony was comfortable with this plan. Thank you again for allowing me to participate in Yony's care. I shall continue to keep you advised of his progress. 01/25/2024 Iron excess (ICD-10 - E83.19) Overall, Yony appears well. He is remaining stable on his daily omeprazole 40 mg in regard to his previous reflux symptoms. We did review the findings on the most recent endoscopy in detail in regard to the healing of the esophagitis and the finding of the underlying Light's esophagus. We reviewed the theoretical increased incidence of esophageal cancer in patients with Light's esophagus. We reviewed that he needs to stay on his omeprazole long-term and he needs to continue to avoid alcohol long-term due to it being a risk factor for worsening reflux and esophageal cancer, as well as other systemic problems including liver disease. We reviewed the need for a followup upper endoscopy in 2026 for surveillance in regard to Light's esophagus. We will plan to have him undergo his followup screening colonoscopy at that time as well. In regard to the underlying elevated LFTs we did review that this is due to a combination of fatty liver and some alcohol-related liver disease, as well as perhaps some iron-induced liver disease even though he does not appear to have the underlying hereditary hemochromatosis based on genetic markers. Given the persistent and significant elevation of the ferritin level, along with the persistent elevation of his liver enzymes, I did recommend that he have a periodic phlebotomy every 2 months to try to normalize his ferritin and eliminate that risk factor for liver disease. I shall arrange that through the [facility]. I did review with him that getting better control of his diabetes, continuing to avoid alcohol completely, watching his diet, and losing some weight, would help with his fatty liver as well. We did review that at some point he may need a liver biopsy for further assessment but at this point I think we shall hold off on that and see how his labs do with the phlebotomies and hopeful correction of the other risk factors for fatty liver. At this point, if things remain stable, I will plan to see Yony in one year for a followup office visit. We shall continue to follow his iron studies as he has his periodic phlebotomies in the meantime. We will repeat imaging of his liver next year when I see him. I did advise him that depending upon his clinical course he may eventually need a liver biopsy for further assessment as well. Yony was comfortable with this plan. Thank you again for allowing me to participate in Yony's care. I shall continue to keep you advised of his progress. Plan Of Treatment Pending Test Test Name Order Date LIVER PROFILE 10/03/2023 LIVER PROFILE 07/26/2023 LIVER PROFILE 09/25/2023 IRON + IBC (FE) 10/03/2023 IRON + IBC (FE) 07/26/2023 IRON + IBC (FE) 09/25/2023 HEMOCHROMATOSIS (C282Y) 10/03/2023 HEMOCHROMATOSIS (C282Y) 09/25/2023 Ferritin 10/03/2023 Ferritin 05/15/2024 Ferritin 09/25/2023 Ferritin 07/26/2023 Alpha 1 Anti-trypsin 07/26/2023 Hepatitis B,C Profile 07/26/2023 Future Test Test Name Order Date COLONOSCOPY 04/03/2015 UPPER GI ENDOSCOPY 07/27/2022 COLONOSCOPY 07/27/2022 UPPER GI ENDOSCOPY 07/26/2023 Insurance Providers Payer Name Payer Address Payer Phone Subscriber Number Group Number Insured Name Patient Relationship to Insured Coverage Start Date Coverage End Date [employer] [facility] Insurance ([employer]) [address] [place] [id number] [phone] [id number] YONY SANTAMARIA Self - patient is the insured Medical (General) History Medical History History ICD Code NIDDM Hypertension Depression Hyperlipidemia Denies DE,CVA,renal disease Pulmonary sarcoidosis--diagn osed 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
--- OUTSIDE RECORDS SUMMARY | 2024-07-17 08:11 | XMS_ITS ---
Author Organization [facility] Address [address] [place] [id number] Care Team Providers Care Civil Engineering Specialist Name Role Phone Gonzalo COHEN, Gumaro Primary Care Provider Unavailab Ahsan Bansal [phone] REASON FOR VISIT phlebotomy order Encounters Encounter Location Date Provider Diagnosis [facility] [address] [place] [phone] 01/25/2024 Ahsan Barnes Plan Of Treatment No Information Progress Notes * YONY SANTAMARIADOB:1965 ( 58 yo M)Acc No.[id number]:01/25/2024 Patient:?YONY SANTAMARIA :1965???Age:58 Y???Sex:Male [address] [place], [address] * true * Date:? Generated for Printi ng/Famarleyg/eTransmitting on:?07/17/2024 08:10 AM EDT
--- OUTSIDE RECORDS SUMMARY | 2024-07-17 08:11 | XMS_ITS ---
Author Organization [facility] Address [address] [place] [phone] Care Team Providers Care Materials Intern Name Role Phone Gonzalo COHEN, Gumaro Primary Care Provider UnavailAhsan Mcrae [phone] Allergies No Known Allergies REASON FOR VISIT Patient presents today for barretts esophagus Medications Medication SIG (Take, Route, Frequency, Duration) [...] e a day for 30 day(s) Active Vital Signs Temperature 97.3 degrees Fahrenheit 01/25/20 24 Blood pressure systolic 000 mm Hg 01/25/20 24 Blood pressure diastolic 00 mm Hg 024 Height 77 in 01/25/2024 Weight 270 lb 6 oz lbs 01/25/2024 BMI 32.06 kg/m2 01/25/2024 Encounters Encounter Location Date Provider Diagnosis [facility] [address] [place] [address] 01/25/2024 Ahsan Barnes Elevated liver funct ion tests R79.89 ; Fatty liver K76.0 ; Colon cancer screening Z12.11 ; Gastroesophageal reflux disease, unspecified whether esophagitis present K21.9 ; History of adenomatous polyp of colon Z86.010 ; Erosive esophagitis K22.10 and Iron excess E83.19 Assessments Encounter Date Diagnosis (ICD Code) Assessment Notes Treatment Notes Treatment Clinical Notes Section Notes 01/25/2024 Elevated liver function tests (ICD-10 [...] disease. I shall arrange that through the [facility]. I did review with him [...] disease. I shall arrange that through the [facility]. I did review with him [...] phlebotomy every 2 months scheduled at the [facility] Overall, Yony appears well. He [...] disease. I shall arrange that through the [facility]. I did review with him [...] disease. I shall arrange that through the [facility]. I did review with him [...] disease. I shall arrange that through the [facility]. I did review with him [...] esophagitis (ICD-10 - K22.10) Continue omeprazole daily group home Overall, Yony appears well. He is remaining [...] disease. I shall arrange that through the [facility]. I did review with him [...] disease. I shall arrange that through the [facility]. I did review with him [...] advised of his progress. 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 I saw Yony in followup today in regard to his underlying history of gastroesophageal reflux with associated erosive esophagitis and Light's esophagus, as well as his elevated iron studies and LFTs. ?I last saw Yony in September, at which time he underwent a followup endoscopy. His previous erosive esophagitis that had been seen in 2022 was now completely healed on his daily 40 mg omeprazole. There were small areas of Light's esophagus seen and biopsies were negative for dysplasia. Since that time he has continued on his daily 40 mg omeprazole and has been feeling well. He denies any significant heartburn, dysphagia, early satiety, anorexia, nausea, nor vomiting. He denies abdominal pain, jaundice, weight loss, change in bowel habits, nor any signs of bleeding. ?He reports that he has continued to remain completely abstinent from alcohol as well. Laboratories from November revealed some slight elevation of liver enzymes with an AST of 82 and ALT of 63, with a normal total bilirubin, albumin, and alkaline phosphatase. His iron was 95 and iron saturation of 34%, but his ferritin level remained elevated at 1048 as compared to 969 in August. His genetic testing for hemochromatosis was completely negative. His previous hepatitis B and C studies were negative and the alpha-1 antitrypsin level was normal. His most recent labs from one month ago revealed an AST of 62 and ALT of 56, a fasting blood sugar of 225, and a hemoglobin A1c of 8.6. He denies any known family history of liver disease or hemochromatosis. * ROS:?General/Constitutional:?Change in appetite?denies.?Chills?denies.?Fatigue?denies.?Ophthalmologic:?Comments?all negative.?ENT:?Comments?all negative.?Respiratory:?hemoptysis?denies.?Cough?denies.?Cardiovascular:?Chest pain?denies.?Orthopnea?denies.?Gastrointestinal:?Comments?See HPI for details.?Genitourinary:?Hematuria?denies.?Dysuria?denies.?Musculoskeletal:?Painful joints?Knee pain.?Weakness?denies.?Skin:?Itching?denies.?Rash?denies.?Neurologic:?Headache?denies.?Seizures?denies.?Psychiatric:?Comments?all negative.? * Medical History:? * Surgical History:?Right knee replacement 2013, but planning to have a revision by Dr. Benitez at [facility] Wrist surgery 2007Achilles tendon repair Appendectomy Broken right thumb back in high school * Hospitalization/Major Diagno stic Procedure:?No Hospitalization History. * Family History:?Father: dece ased, auto accident.?Mother: alive.?Paternal Grand Father: , cancer.? No known family hx of colon cancer. no liver cancer in the family history. * Social History:?Tobacco Use:?Tobacco Use/Smoking?Are you a: nonsmoker.?Drugs/Alcohol:?Alcohol Screen?Points: 0, Interpretation: Negative.?Miscellaneous:?Marital status: . Occupation: [employer]. ???Nonsmoker; Recovering alcoholic. * Medications:?TakingAllergy 2 4-HR 180 MG Tablet 1 tablet Swallow whole with water; do not take with fruit juices. Orally Once a dayVitamin C 500 MG Capsule as directed Orally Multivitamin Adult - Tablet 1 tablet Orally Once a dayGabapentin 600 MG Tablet 2 tablet Orally 600 mg and 300 mg at hsLisinopril metFORMIN HCl Atorvastatin Calcium amLODIPine Besylate 5 MG Tablet Oral Mirtazapine 15 MG Tablet Oral Naltrexone HCl 50 MG Tablet Oral Citalopram Hydrobromide 20 MG Tablet Oral Sildenafil Citrate 100 MG Tablet TAKE 1 TABLET 1HR PRIOR TO INTERCOURSE Oral Metoprolol Succinate ER 50 MG Tablet Extended Release 24 Hour TAKE 1 TABLET BY MOUTH EVERY DAY Oral Omeprazole 40 MG Capsule Delayed Release 1 Orally Every morningTaking Allergy 24-HR 180 MG Tablet 1 tablet Swallow whole with water; do not take with fruit juices. Orally Once a dayTaking Vitamin C 500 MG Capsule as directed Orally Taking Multivitamin Adult - Tablet 1 tablet Orally Once a dayTaking Gabapentin 600 MG Tablet 2 tablet Orally 600 mg and 300 mg at hsTaking Lisinopril Taking metFORMIN HCl Taking Atorvastatin Calcium Taking amLODIPine Besylate 5 MG Tablet Oral Taking Mirtazapine 15 MG Tablet Oral Taking Naltrexone HCl 50 MG Tablet Oral Taking Citalopram Hydrobromide 20 MG Tablet Oral Taking Sildenafil Citrate 100 MG Tablet TAKE 1 TABLET 1HR PRIOR TO INTERCOURSE Oral Taking Metoprolol Succinate ER 50 MG Tablet Extended Release 24 Hour TAKE 1 TABLET BY MOUTH EVERY DAY Oral Taking Omeprazole 40 MG Capsule Delayed Release 1 Orally Every morningNot-Taking/PRNOmeprazole 20 MG Capsule Delayed Release Oral Medication List reviewed and reconciled with the patientNot-Taking/PRN Omeprazole 20 MG Capsule Delayed Release Oral Medication List reviewed and reconciled with the patient * Allergies:?N.K.D.A.yes[Aller gies Verified] Objective: * Vitals:?Wt: 270 lb 6 oz, Ht: 77 in, BMI:32.06 Index, BP: 000/00 mm Hg, Temp: 97.3. * Examination: ???General Examination: ?GENERAL APPEARANCE:?pleasant, well nourished, well developed, in no acute distress.?EYES:?sclera non-icteric.?ORAL CAVITY:?mucosa moist.?NECK/THYROID:?no cervical lymphadenopathy, neck supple.?SKIN:?nonjaundiced, no spider angiomata.?HEART:?S1, S2 normal.?LUNGS:?clear to auscultation bilaterally.?ABDOMEN:?normal bowel sounds, no guarding or rigidity, no guarding or rigidity, no masses palpable, soft, nontender, nondistended.?EXTREMITIES:?no edema.?NEUROLOGIC:?alert and oriented.? Assessment: * Assessment: 1.?Fatty liver - K76.0 (Prim gurmeet)?2.?Elevated liver function tests - R79.89?3.?Colon cancer screening - Z12.11?4.?Gastroesophageal reflux disease, unspecified whether esophagitis present - K21.9?5.?History of adenomatous polyp of colon - Z86.010?6.?Erosive esophagitis - K22.10?7.?Iron excess - E83.19? Overall, Yony appears well. He is remaining [...] disease. I shall arrange that through the [facility]. I did review with him [...] to keep you advised of his progress. Plan: * Treatment: 2.?Gastroesophageal reflux d isease, unspecified whether esophagitis present? Notes: Repeat upper endoscopy and colonoscopy in 06/2026?? 3.?Erosive esophagitis? 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 * Procedure Codes:?3017F COLOR ECTAL CA SCREEN DOC [id number] TOBACCO NON-[id number] BP SCR NOT PRFRM REC REASON NOS * Preventive Medicine:? ??Counseling:?Care goal follow-up plan:?Above Normal BMI Follow-up?Giving encouragement to exercise,?BMI management provided?Yes.? * Follow Up:?1 Year * * Sign off status: Completed true * Provider:?Ahsan Barnes MD Date:? 024 Generated for Matthewi russ/Sonya/eTransmitting on:?07/17/2024 08:11 AM EDT History and Physical Notes * HPI (History of Present Illness) Category Sub-Category Detail Notes Category Not es incontinence I saw Yony in followup today in regard to his underlying history of gastroesophageal reflux with associated erosive esophagitis and Light's esophagus, as well as his elevated iron studies and LFTs. I last saw Yony in September, at which time he underwent a followup endoscopy. His previous erosive esophagitis that had been seen in 2022 was now completely healed on his daily 40 mg omeprazole. There were small areas of Light's esophagus seen and biopsies were negative for dysplasia. Since that time he has continued on his daily 40 mg omeprazole and has been feeling well. He denies any significant heartburn, dysphagia, early satiety, anorexia, nausea, nor vomiting. He denies abdominal pain, jaundice, weight loss, change in bowel habits, nor any signs of bleeding. He reports that he has continued to remain completely abstinent from alcohol as well. Laboratories from November revealed some slight elevation of liver enzymes with an AST of 82 and ALT of 63, with a normal total bilirubin, albumin, and alkaline phosphatase. His iron was 95 and iron saturation of 34%, but his ferritin level remained elevated at 1048 as compared to 969 in August. His genetic testing for hemochromatosis was completely negative. His previous hepatitis B and C studies were negative and the alpha-1 antitrypsin level was normal. His most recent labs from one month ago revealed an AST of 62 and ALT of 56, a fasting blood sugar of 225, and a hemoglobin A1c of 8.6. He denies any known family history of liver disease or hemochromatosis. Examination Category Sub-Category Detail Notes Category Not es General Examination GENERAL APPEARANCE: pleasant , well [...]
--- OUTSIDE RECORDS SUMMARY | 2024-07-17 08:11 | XMS_ITS ---
Author Organization [facility] Address [address] [place] [phone] Care Team Providers Care Hydroelectric Powerplant Supervisor Name Role Phone Gonzalo COHEN, Gumaro Primary Care Provider Unavailab Ahsan Bansal [phone] REASON FOR VISIT 1 year office recall Encounters Encounter Location Date Provider Diagnosis [facility] [address] [place] [phone] 01/25/2024 Ahsna Barnes Plan Of Treatment No Information Progress Notes * YONY SANTAMARIADOB:1965 ( 58 yo M)Acc No.[id number]:01/25/2024 Patient:?YONY SANTAMARIA :1965???Age:58 Y???Sex:Male [address] [place], [address] * true * Date:? Generated for Matthewi russ/Sonya/eTransmitting on:?07/17/2024 08:11 AM EDT
== END 2024-07-17 08:07 | disposition home or self-care (01) ==
LOC: HO.BBR 08:06
PROVIDERS: PCP Family Medicine; Visit Provider Internal Medicine
DX: E83.19 Other disorders of iron metabolism (principal)
CPT/HCPCS: 85014; 85018; 99195

== ENCOUNTER 2024-08-20 07:34 | Outpatient (REF) | payer OTHER, SELFPAY ==
--- OUTSIDE RECORDS SUMMARY | 2024-08-20 07:36 | XMS_ITS | Patient Health Record ---
Author Organization [facility] Address [address] [place] [address] Care Team Providers Care Channeler Insole Name Role Phone Gumaro Sánchez MD Primary Care Provider Ahsan De Leon [phone] Allergies No Known Allergies Results Component Value Reference Range Notes Liver Panel Reviewed date:08/22/2023 11:42:05 PM Interpretation: Performing Lab:[facility], [address] [place] [phone] Notes/Report: Bilirubin Total 1.7 0.0-1.0 mg/dL Bilirubin Direct 0.5 0.0-0.5 mg/dL Aspartate Amino Transferase 31 5-37 U/L Alanine Aminotransferase 36 0-40 U/L Total Protein 7.2 6.5-8.0 g/dL Albumin Level 4.2 3.5-5.0 g/dL Alkaline Phosphatase 71 39-117 U/L IRON PROFILE Reviewed date:09/25/2023 02:40:07 PM Interpretation: Performing Lab:[facility], [address] [place] [phone] Notes/Report: Iron 151 45-160 mcg/dL Total Iron Binding Capacity 283 228-428 mcg/dL Percent Iron Saturation 53 15-50 % Unsaturated Iron Binding 132 Ferritin Reviewed date:09/25/2023 02:40:31 PM Interpretation: Performing Lab:[facility], [address] [place] [phone] Notes/Report: Ferritin 969 20-250 ng/mL Alpha 1 Anti-trypsin Reviewed date:08/23/2023 11:35:09 AM Interpretation: Performing Lab:[facility], [address] [place] [phone] Notes/Report: Alpha 1 Anti-trypsin 159 83-199 mg/dL THIS TEST WAS PERFORMED AT: [facility] [address] [place] [phone] VERENICE SALDANA MD Hepatitis B,C Profile Reviewed date:08/23/2023 12:05:11 AM Interpretation: Performing Lab:[facility], [address] [place] [phone] Notes/Report: Hepatitis B Surface Antibody NONREACTIVE Nonreactive Nonreactive: < 8.00 mIU/mL Hepatitis B Core Antibody Nonreactive Nonreactive Hepatitis C Antibody Nonreactive Nonreactive Antibodies to HCV not detected; does not exclude early acute HCV infection. Hepatitis B Surface Antigen Negative Negative Glucose, Whole Blood Reviewed date:09/26/2023 09:44:53 PM Interpretation: Performing Lab:[facility], [address] [place] [phone] Notes/Report: Glucose, Whole Blood 247 60-115 mg/dL METER # : [id number] Pathology Reviewed date:10/08/2023 06:37:06 PM Interpretation: Performing Lab:[facility], [address] [place] [phone] Notes/Report: Name: JosehayderYony Age/Sex: 58/M : 1965 Unit#: [id number] Attend Dr: Ahsan Barnes MD Re09/26/23 Status: [facility] Location: [facility] Disch: SPEC : [id number] RECD: 09/26/23 STATUS: LELA ARZATE NUM: [id number] MOISES: 09/26/[address] [facility] [address]: Ahsan Barnes MD ENTERED: 09/26/23 SP [...] A. CEDS Copies To: Gumaro Sánchez MD [address] [place] [address] [address] [place] [address] Ahsan Barnes MD [facility] [address] [place] [address] [address] [place], [place] [phone] Signed (signature on file) Isaac Dale MD 09/28/23 1016 END OF REPORT DNA Analysis Hemochromatosis Reviewed date:12/02/2023 04:56:34 PM Interpretation: Performing Lab:[facility], [address] [place] [phone] Notes/Report: DNA Analysis Hemochromatosis See Below RESULT: [...] clinical information reviewed by Nava Green, Ph.D., [facility]. DETAILED ASSAY INFORMATION: Hereditary hemochromatosis (HH) is [...] variants in the HFE gene, C282Y (NM 478754.2: c.845G>A, p.Scf077Mif) and H63D (NM 828343.2: c.187C>G, p.Gem55Vom), that are commonly associated with HH. These [...] Health care providers, please contact your local [facility] genetic counselor or call [phone] ( ) for assistance with the interpretation of these results. This test was developed and its analytical performance characteristics have been determined by [facility]. It has not been cleared or approved by FDA. This assay has been validated pursuant to the CLIA regulations and is used for clinical purposes. For more information, please refer to http://education.Press/faq/hemoch romatosis. (This link is being provided for informational/educationa l purposes only.) Reviewed and signed by Laboratory results and submitted clinical information reviewed by Nava Green, Ph.D., [facility], Signed on 11/28/2023 at 13:24 THIS TEST WAS PERFORMED AT: [facility] [employer] [address] [place] [address] TOMER ATWOOD MD,PHD,KATHY Liver Panel Reviewed date:11/16/2023 05:36:17 PM Interpretation: Performing Lab:[address] [phone] Notes/Report: Bilirubin Total 1.1 0.0-1.0 mg/dL Bilirubin Direct 0.3 0.0-0.5 mg/dL Aspartate Amino Transferase 82 5-37 U/L Alanine Aminotransferase 63 0-40 U/L Total Protein 7.2 6.5-8.0 g/dL Albumin Level 4.2 3.5-5.0 g/dL Alkaline Phosphatase 60 39-117 U/L IRON PROFILE Reviewed date:11/16/2023 05:36:36 PM Interpretation: Performing Lab:[address] [address] Notes/Report: Iron 95 45-160 mcg/dL Total Iron Binding Capacity 281 228-428 mcg/dL Percent Iron Saturation 34 15-50 % Unsaturated Iron Binding 186 Ferritin Reviewed date:01/25/2024 04:24:48 PM Interpretation: Performing Lab:[facility], [address] [place] [phone] Notes/Report: Ferritin 1048 20-250 ng/mL Therapeutic Phlebotomy Reviewed date:03/09/2024 09:18:46 PM Interpretation: Performing Lab:[address] [address] Notes/Report: THER/HGB 14.9 14.0-18.0 g/dL THER/HCT TNP 42.0-52.0 % Therapeutic Phlebotomy Phlebotomy Performed 500 mls drawn on 03/08/24. Please note that a copy of this report has been sent to the Primary Care Physician, the ordering physician and any physician designated by patient request. Liver Panel Reviewed date:05/15/2024 12:41:43 PM Interpretation: Performing Lab:[address] [address] Notes/Report: Bilirubin Total 1.0 0.0-1.0 mg/dL Bilirubin Direct 0.3 0.0-0.5 mg/dL Aspartate Amino Transferase 72 5-37 U/L Alanine Aminotransferase 64 0-40 U/L Total Protein 6.5 6.5-8.0 g/dL Albumin Level 3.8 3.5-5.0 g/dL Alkaline Phosphatase 64 39-117 U/L IRON PROFILE Reviewed date:05/15/2024 12:41:32 PM Interpretation: Performing Lab:[address] [address] Notes/Report: Iron 98 45-160 mcg/dL Total Iron Binding Capacity 287 228-428 mcg/dL Percent Iron Saturation 34 15-50 % Unsaturated Iron Binding 189 Ferritin (Not yet reviewed b y provider) Interpretation: Performing Lab:[facility], [address] [place] [phone] Notes/Report: Ferritin 358 20-250 ng/mL Therapeutic Phlebotomy Reviewed date:05/15/2024 12:41:11 PM Interpretation: Performing Lab:[address] [address] Notes/Report: THER/HGB 15.4 14.0-18.0 g/dL THER/HCT TNP 42.0-52.0 % Therapeutic Phlebotomy Phlebotomy Performed 500 mls drawn on 05/15/24. Please note that a copy of this report has been sent to the Primary Care Physician, the ordering physician and any physician designated by patient request. Therapeutic Phlebotomy (Not yet reviewed by provider) Interpretation: Performing Lab:[facility], [address] [place] [phone] Notes/Report: THER/HGB 14.9 14.0-18.0 g/dL THER/HCT TNP 42.0-52.0 % Therapeutic Phlebotomy Phlebotomy Performed 500 mls drawn on 07/17/24. Please note that a copy of this [...] Problem Status W/U Status Risk Notes Problem 028672100 Colon cancer screening (Z12.11) Active confirmed Problem Esophageal reflux (451626090) Esophageal reflux (K21.9) Active confirmed Problem Gastro-esophageal reflux disease without esophagitis (641452825) Gastro-esophageal reflux disease without esophagitis (K21.9) Active confirmed Problem 487868924 History of adenomatous polyp of colon (Z86.010) Active confirmed Problem Elevated liver enzymes level (690467784) Elevated liver function tests (R79.89) Active confirmed Problem 01576991 Preprocedural examination (Z01.818) Active confirmed Problem Fatty liver (688776081) Fatty liver (K76.0) Active confirmed Problem Iron excess (16288982) Iron excess (E83.19) Active confirmed Problem Erosive esophagitis (99897213) Erosive esophagitis (K22.10) Active confirmed Problem Gastritis (1548534) Gastritis (K29.70) Active confirmed Problem Elevated liver enzymes level (769333210) Elevated liver function tests (R94.5) Active confirmed Problem Erosive gastritis (1467108163985662 ) Erosive gastritis (K29.60) Active confirmed Problem Diverticulosis of colon (697673285) Diverticulosis of colon (K57.30) Active confirmed Problem 681767363 Gastroesophageal reflux disease, unspecified whether esophagitis present (K21.9) Active confirmed Vital Signs Temperature 97.3 degrees Fahrenheit 01/25/2024 Blood pressure diastolic 00 mm Hg 01/25/2024 Height 77 in 01/25/2024 Blood pressure systolic 000 mm Hg 01/25/2024 Weight 270 lb 6 oz lbs 01/25/2024 BMI 32.06 kg/m2 01/25/2024 Encounters Encounter Location Date Provider Diagnosis [facility] [address] [place] [phone] 09/26/2023 Ahsan Barnes Gastro-esophageal re flux disease without esophagitis K21.9 ; Hiatal hernia K44.9 and Gastritis K29.70 [facility] [address] [place] [phone] 01/25/2024 Ahsan Barnes Elevated liver funct ion tests R79.89 ; Fatty liver K76.0 ; Colon cancer screening Z12.11 ; Gastroesophageal reflux disease, unspecified whether esophagitis present K21.9 ; History of adenomatous polyp of colon Z86.010 ; Erosive esophagitis K22.10 and Iron excess E83.19 [facility] [address] [place] [phone] 09/25/2023 Ahsan Barnes Elevated liver funct ion tests R94.5 and Iron excess E83.19 [facility] [address] [place] [phone] 10/03/2023 Ahsan Barnes Elevated liver funct ion tests R94.5 and Iron excess E83.19 [facility] [address] [place] [address] 01/25/2024 Ahsan Barnes [facility] [address] [place] [address] 01/25/2024 Ahsan Barnes Assessments Encounter Date Diagnosis (ICD Code) Assessment Notes Treatment Notes Treatment Clinical Notes Section Notes 09/26/2023 Gastro-esophageal reflux disease without esophagitis (ICD-10 - K21.9) 09/26/2023 Hiatal hernia (ICD-10 - K44.9) 01/25/2024 Elevated liver function tests (ICD-10 - [...] disease. I shall arrange that through the [facility]. I did review with him [...] disease. I shall arrange that through the [facility]. I did review with him [...] - R94.5) 09/26/2023 Gastritis (ICD-10 - K29.70) 01/25/2024 Colon cancer screening (ICD-10 - Z12.11) Needs phlebotomy every 2 months scheduled at the [facility] Overall, Yony appears well. He [...] disease. I shall arrange that through the [facility]. I did review with him [...] disease. I shall arrange that through the [facility]. I did review with him [...] disease. I shall arrange that through the [facility]. 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 He is remaining [...] disease. I shall arrange that through the [facility]. I did review with him [...] disease. I shall arrange that through the [facility]. I did review with him [...] HEMOCHROMATOSIS (C282Y) 10/03/2023 HEMOCHROMATOSIS (C282Y) 09/25/2023 Ferritin 09/25/2023 Ferritin 07/26/2023 Ferritin 10/03/2023 Ferritin 05/15/2024 Alpha 1 Anti-trypsin 07/26/2023 Hepatitis B,C Profile 07/26/2023 Therapeutic Phlebotomy 07/17/2024 Future Test Test Name Order Date COLONOSCOPY 04/03/2015 UPPER GI ENDOSCOPY 07/27/2022 COLONOSCOPY 07/27/2022 UPPER GI ENDOSCOPY 07/26/2023 Insurance Providers Payer Name Payer Address Payer Phone Subscriber Number Group Number Insured Name Patient Relationship to Insured Coverage Start Date Coverage End Date [employer] (Consignd) [address] [place] [id number] [phone] [id number] SARAHYONY OLIVAREZ Self - patient is the insured Medical (General) History Medical History History ICD Code NIDDM Hypertension Depression Hyperlipidemia Denies NM,CVA,renal disease Pulmonary sarcoidosis--diagn osed approx 15 yrs [...]
[2024-08-20 10:10] LABS: Estimated Average Glucose 206 mg/dL; Hemoglobin A1c % 8.8 % (<6.0)
[2024-08-20 10:15] LABS: Anion Gap 9 (12-20); Carbon Dioxide 29 mmol/L (22-29); Chloride 96 mmol/L (96-108); Glucose Fasting 213 mg/dL (60-99); Potassium 4.3 mmol/L (3.3-5.1); Sodium 130 mmol/L (135-145)
== END 2024-08-20 07:35 | disposition home or self-care (01) ==
LOC: HO.10HDL 07:34
PROVIDERS: Visit Provider Family Medicine
DX: E11.9 Type 2 diabetes mellitus without complications (principal); I10 Essential (primary) hypertension
CPT/HCPCS: 36415; 80051; 82947; 83036

== ENCOUNTER 2024-08-22 10:22 | Outpatient (REF) | payer OTHER, SELFPAY ==
--- OUTSIDE RECORDS SUMMARY | 2024-08-22 11:45 | XMS_ITS | Patient Health Record ---
Author Organization [facility] Address [address] [place] [address] Care Team Providers Care Scada Technician Name Role Phone Gonzalo COHEN, Gumaro Primary Care Provider UnavailAhsan Mcrae [facility] [phone] Allergies No Known Allergies Results Component Value Reference Range Notes Glucose, Whole Blood Reviewed date:09/26/2023 09:44:53 PM Interpretation: Performing Lab:[facility], [address] [place] [phone] Notes/Report: Glucose, Whole Blood 247 60-115 mg/dL METER # : [id number] Pathology Reviewed date:10/08/2023 06:37:06 PM Interpretation: Performing Lab:[facility], [address] [place] [phone] Notes/Report: Name: HinaYony Nicholson Age/Sex: 58/M : 1965 Unit#: [id number] Attend Dr: Ahsan Barnes MD Re09/26/23 Status: [facility] Location: [facility] Disch: SPEC : [id number] RECD: 09/26/23 STATUS: LELA ARZATE NUM: [id number] MOISES: 09/26/23 [facility] DR: Ahsan Barnes MD ENTERED: 09/26/23 [...] A. CEDS Copies To: Gumaro Sánchez MD [address] [place] [address] [address] [place] [address] Ahsan Barnes MD [facility] [address] [place], [place] [phone] Signed (signature on file) Isaac Dale MD 09/28/23 1016 END OF REPORT DNA Analysis Hemochromatosis Reviewed date:12/02/2023 04:56:34 PM Interpretation: Performing Lab:[facility], [address] [place] [phone] Notes/Report: DNA Analysis Hemochromatosis See Below RESULT: [...] reviewed by Nava Green, Ph.D., [facility]. DETAILED ASSAY INFORMATION: Hereditary hemochromatosis (HH) is [...] variants in the HFE gene, C282Y (NM 896280.2: c.845G>A, p.Ehe068Fzh) and H63D (NM 810448.2: c.187C>G, p.Shc29Cfz), that are commonly associated with HH. These [...] Health care providers, please contact your local [facility] genetic counselor or call [phone] ( ) for assistance with the interpretation of these results. This test was developed and its analytical performance characteristics have been determined by [facility]. It has not been cleared or approved by FDA. This assay has been validated pursuant to the CLIA regulations and is used for clinical purposes. For more information, please refer to http://education.[employer]/faq/hemoch romatosis. (This link is being provided for informational/educationa l purposes only.) Reviewed and signed by Laboratory results and submitted clinical information reviewed by Nava Green, Ph.D., [facility], Signed on 11/28/2023 at 13:24 THIS TEST WAS PERFORMED AT: [employer] [address] [place] [address] TOMER ATWOOD MD,PHD,KATHY Liver Panel Reviewed date:11/16/2023 05:36:17 PM Interpretation: Performing Lab:[facility], [address] [place] [phone] Notes/Report: Bilirubin Total 1.1 0.0-1.0 mg/dL Bilirubin Direct 0.3 0.0-0.5 mg/dL Aspartate Amino Transferase 82 5-37 U/L Alanine Aminotransferase 63 0-40 U/L Total Protein 7.2 6.5-8.0 g/dL Albumin Level 4.2 3.5-5.0 g/dL Alkaline Phosphatase 60 39-117 U/L IRON PROFILE Reviewed date:11/16/2023 05:36:36 PM Interpretation: Performing Lab:[facility], [address] [place] [phone] Notes/Report: Iron 95 45-160 mcg/dL Total Iron Binding Capacity 281 228-428 mcg/dL Percent Iron Saturation 34 15-50 % Unsaturated Iron Binding 186 Ferritin Reviewed date:01/25/2024 04:24:48 PM Interpretation: Performing Lab:[facility], [address] [place] [phone] Notes/Report: Ferritin 1048 20-250 ng/mL Therapeutic Phlebotomy Reviewed date:03/09/2024 09:18:46 PM Interpretation: Performing Lab:[facility], [address] [place] [phone] Notes/Report: THER/HGB 14.9 14.0-18.0 g/dL THER/HCT TNP 42.0-52.0 % Therapeutic Phlebotomy Phlebotomy Performed 500 mls drawn on 03/08/24. Please note that a copy of this report has been sent to the Primary Care Physician, the ordering physician and any physician designated by patient request. Liver Panel Reviewed date:05/15/2024 12:41:43 PM Interpretation: Performing Lab:[facility], [address] [place] [phone] Notes/Report: Bilirubin Total 1.0 0.0-1.0 mg/dL Bilirubin Direct 0.3 0.0-0.5 mg/dL Aspartate Amino Transferase 72 5-37 U/L Alanine Aminotransferase 64 0-40 U/L Total Protein 6.5 6.5-8.0 g/dL Albumin Level 3.8 3.5-5.0 g/dL Alkaline Phosphatase 64 39-117 U/L IRON PROFILE Reviewed date:05/15/2024 12:41:32 PM Interpretation: Performing Lab:[facility], [address] [place] [phone] Notes/Report: Iron 98 45-160 mcg/dL Total Iron Binding Capacity 287 228-428 mcg/dL Percent Iron Saturation 34 15-50 % Unsaturated Iron Binding 189 Ferritin (Not yet reviewed b y provider) Interpretation: Performing Lab:[facility], [address] [place] [phone] Notes/Report: Ferritin 358 20-250 ng/mL Therapeutic Phlebotomy Reviewed date:05/15/2024 12:41:11 PM Interpretation: Performing Lab:[facility], [address] [place] [phone] Notes/Report: THER/HGB 15.4 14.0-18.0 g/dL THER/HCT TNP 42.0-52.0 % Therapeutic Phlebotomy Phlebotomy Performed 500 mls drawn on 05/15/24. Please note that a copy of this report has been sent to the Primary Care Physician, the ordering physician and any physician designated by patient request. Therapeutic Phlebotomy (Not yet reviewed by provider) Interpretation: Performing Lab:[facility], [address] [facility], [place] [address] Notes/Report: THER/HGB 14.9 14.0-18.0 g/dL THER/HCT TNP [...] Problem Status W/U Status Risk Notes Problem 862966201 Colon cancer screening (Z12.11) Active confirmed Problem Esophageal reflux (163817692) Esophageal reflux (K21.9) Active confirmed Problem Gastro-esophageal reflux disease without esophagitis (105538747) Gastro-esophageal reflux disease without esophagitis (K21.9) Active confirmed Problem 830279032 History of adenomatous polyp of colon (Z86.010) Active confirmed Problem Elevated liver enzymes level (163427206) Elevated liver function tests (R79.89) Active confirmed Problem 49147555 Preprocedural examination (Z01.818) Active confirmed Problem Fatty liver (688542143) Fatty liver (K76.0) Active confirmed Problem Iron excess (47031622) Iron excess (E83.19) Active confirmed Problem Erosive esophagitis (55676483) Erosive esophagitis (K22.10) Active confirmed Problem Gastritis (8016907) Gastritis (K29.70) Active confirmed Problem Elevated liver enzymes level (482482699) Elevated liver function tests (R94.5) Active confirmed Problem Erosive gastritis (6942800540110734 ) Erosive gastritis (K29.60) Active confirmed Problem Diverticulosis of colon (178242419) Diverticulosis of colon (K57.30) Active confirmed Problem 243414884 Gastroesophageal reflux disease, unspecified whether esophagitis present (K21.9) Active confirmed Vital Signs Temperature 97.3 degrees Fahrenheit 01/25/2024 Blood pressure diastolic 00 mm Hg 01/25/2024 Height 77 in 01/25/2024 Blood pressure systolic 000 mm Hg 01/25/2024 Weight 270 lb 6 oz lbs 01/25/2024 BMI 32.06 kg/m2 01/25/2024 Encounters Encounter Location Date Provider Diagnosis [facility] Outpatient [address] [place] [phone] 09/26/2023 Ahsan Barnes Gastro-esophageal re flux disease without esophagitis K21.9 ; Hiatal hernia K44.9 and Gastritis K29.70 [facility] [address] [place] [phone] 01/25/2024 Ahsan Barnes Elevated liver funct ion tests R79.89 ; Fatty liver K76.0 ; Colon cancer screening Z12.11 ; Gastroesophageal reflux disease, unspecified whether esophagitis present K21.9 ; History of adenomatous polyp of colon Z86.010 ; Erosive esophagitis K22.10 and Iron excess E83.19 [facility] [address] [place] [phone] 09/25/2023 Ahsan Barnes Elevated liver funct ion tests R94.5 and Iron excess E83.19 [facility] [address] [place] [phone] 10/03/2023 Ahsan Barnes Elevated liver funct ion tests R94.5 and Iron excess E83.19 [facility] [address] [place] [phone] 01/25/2024 [facility] [address] [place] [address] 01/25/2024 Ahsan Barnes Assessments Encounter Date Diagnosis [...] disease. I shall arrange that through the [facility]. I did review with him [...] disease. I shall arrange that through the [facility]. I did review with him [...] phlebotomy every 2 months scheduled at the [facility] Overall, Yony appears well. He [...] disease. I shall arrange that through the [facility]. I did review with him [...] disease. I shall arrange that through the [facility]. I did review with him [...] disease. I shall arrange that through the [facility]. I did review with him [...] esophagitis (ICD-10 - K22.10) Continue omeprazole daily assisted Overall, Yony appears well. He is remaining [...] disease. I shall arrange that through the [facility]. I did review with him [...] disease. I shall arrange that through the [facility]. I did review with him [...] Insured Coverage Start Date Coverage End Date [employer] [address] [place] [id number] [phone] [id number] YONY SANTAMARIA Self - patient is the insured Medical (General) History Medical History History ICD Code NIDDM Hypertension Depression Hyperlipidemia Denies [place],CVA,renal disease Pulmonary sarcoidosis--diagn osed approx 15 yrs [...]
[2024-08-22 13:25] LABS: MANUAL DIFF FLAG NO
[2024-08-22 14:03] LABS: Basophils Percent Auto 0.9 % (0-2); Eosinophils Percent Auto 0.9 % (0-4); Hematocrit 39.1 % (42.0-52.0); Hemoglobin 14.1 g/dl (14.0-18.0); Imm Gran Abs Auto 0.01 X10*3/uL (0.00-0.03); Imm Gran Pct Auto 0.3 % (0.0-0.4); Lymphocytes Absolute Auto 0.6 X10*3/uL (1.2-4.9); Lymphocytes Percent Auto 19.5 % (20-40); Mean Corpuscular HGB Conc 36.1 g/dl (31.0-36.0); Mean Corpuscular Hemoglobin 32.6 pg (27.0-33.0); Mean Corpuscular Volume 90.5 fL (80.0-98.0); Mean Platelet Volume 10.7 fL (9.4-12.4); Monocytes Absolute Auto 0.4 X10*3/uL (0.1-1.2); Monocytes Percent Auto 13.1 % (2-11); Neutrophils Absolute Auto 2.1 x10*3/uL (2.0-8.3); Neutrophils Percent Auto 65.3 % (45-73); Red Blood Count 4.32 X10*6/uL (4.60-5.80); Red Cell Distribution Width 11.4 % (11.0-16.0); White Blood Count 3.3 X10*3/uL (4.8-10.8)
[2024-08-22 14:04] LABS: Platelet Count 125 X10*3/uL (160-400)
[2024-08-22 14:14] LABS: Alanine Aminotransferase 71 U/L (0-40); Albumin Level 4.4 g/dL (3.5-5.0); Alkaline Phosphatase 70 U/L (39-117); Aspartate Amino Transferase 94 U/L (5-37); Bilirubin Direct 0.6 mg/dL (0.0-0.5); Bilirubin Total 1.5 mg/dL (0.0-1.0); Blood Urea Nitrogen 6 mg/dL (9-16); Estimated Glomerular Filt Rate > 60; Ethanol < 10 mg/dL; Glucose Random 247 mg/dL (60-115); Iron 117 mcg/dL (45-160); Percent Iron Saturation 34 % (15-50); Total Iron Binding Capacity 342 mcg/dL (228-428); Unsaturated Iron Binding 225 ug/dL
[2024-08-22 14:23] LABS: Ferritin 255 ng/mL (20-250)
== END 2024-08-22 10:23 | disposition home or self-care (01) ==
LOC: HO.10HDL 10:22
PROVIDERS: Visit Provider Family Medicine
DX: D50.9 Iron deficiency anemia, unspecified (principal); I10 Essential (primary) hypertension; K75.81 Nonalcoholic steatohepatitis (NASH); Z13.9 Encounter for screening, unspecified
CPT/HCPCS: 36415; 80076; 80307; 82565; 82728; 82947; 83540; 84520; 85025

== ENCOUNTER 2024-09-17 08:01 | Outpatient (REF) | payer OTHER, SELFPAY ==
--- OUTSIDE RECORDS SUMMARY | 2023-09-26 08:50 | XMS_ITS ---
Author Organization [facility] Address [address] [place] [address] Care Team Providers Care Grain Broker And Market Operator Name Role Phone Gonzalo COHEN, Gumaro Primary Care Provider Unavailab Ahsan Bansal [facility] [phone] REASON FOR VISIT erosive esophagitis Problems Problem Type SNOMED Code ICD Code Onset Dates Problem Status W/U Status Risk Notes Problem Gastro-esophagea l reflux disease without esophagitis (173415947) Gastro-esophage al reflux disease without esophagitis (K21.9) Active confirmed Problem Gastritis (4799317) Gastritis (K29.70) Active confirmed Encounters Encounter Location Date Provider Diagnosis [facility] [place] [address] [place] [phone] 09/26/2023 Ahsan Barnes Gastro-esophageal reflux disease without [...] * YONY SANTAMARIADOB:1965 ( 59 yo M)Acc No.[id number]:09/26/2023 EGD/MAC Patient: YONY LLOYD Provider: Bharat Barnes MD :1965 A ge:58 Y S ex:Male Date:09/26/2023 Address:[address] [place] [address], [place], [id number] Pcp:Gumaro Sánchez MD Subjective: * Chief Complaints: * 1 [...] 0 09/26/2023 Generated for Ar solano/Sonya/Leelaitting on: 09/17/2024 08:03 AM EDT
--- OUTSIDE RECORDS SUMMARY | 2024-09-17 08:03 | XMS_ITS | Patient Health Record ---
Author Organization [facility] Address [address] [place] [address] Care Team Providers Care Cold Roll Packer Sheet Iron Name Role Phone Gumaro Sánchez MD Primary Care Provider Unavailab ChacondanutaJenifer Unavailable [phone] Reason For Referral No Information Medications Medication SIG (Take, Route, Frequency, Duration) Notes Start Date End Date Status traZODone HCl 50 MG TAKE 1 TABLET BY JESSI TH AT BEDTIME Oral; Duration: 90 Active Sertraline HCl 100 MG TAKE 1 TABLET BY M OUTH ONCE A DAY Oral; Duration: 90 Active metFORMIN HCl 1000 MG TAKE 1 TABLET BY M OUTH AT BEDTIME Oral; Duration: 90 Active Lisinopril Active amLODIPine Besylate 2.5 MG TAKE 1 TABLET BY MOUTH EVERY EVENING DIRECTED Oral; Duration: 90 Active Keflex 500 500 MG 1 capsule Orally sherine ry 12 hrs; Duration: 05 days 09/07/2017 Active Atorvastatin Calcium Active hydrOXYzine Pamoate 25 MG TAKE 1 CAPSULE BY MOUTH AT BEDTIME DIRECTED Oral; Duration: 30 Active Immunizations Vaccine Route Administration Date Status Comme nts Influenza Unknown 01/27/2017 Administered Social History Tobacco Use: Social History Observation Description Date Details (start date - stop date) Never Smoker NA - NA Tobacco Use/Smoking Question Answer Notes Are you a: nonsmoker Additional Findings: Tobacco Non-User Current no n-smoker Alcohol Screen Question Answer Notes Did you have a drink containing alcohol in the p ast year? No Points 0 Interpretation Negative Tobacco use other than smoking: Question Answer Notes Are you an other tobacco user? No Problems Problem Type SNOMED Code ICD Code Onset Dates Problem Status W/U Status Risk Notes Problem Type 2 diabetes mellitus without complication, without long-term current use of insulin (E11.9) Active confirmed Plan Of Treatment Pending Test Test Name Order Date 25877- Debride <25 sq cm 09/07/2017 Insurance Providers Payer Name Payer Address Payer Phone Subscriber Number Group Number Insured Name Patient Relationship to Insured Coverage Start Date [facility]age End [facility] [address] [place] [id number] [phone] [id number] [facility] [place] Spouse - patient is the spouse of the insured Medical (General) History Medical History History ICD Code Diabetic High blood pressure Sarcoidosis Bone implants/screws Surgical History Surgery Date(Month/Year) appendectomy 1990 achilles tendon repair 1994 right knee replacement (first one failed ) 2013,2015 wrist surgery
== END 2024-09-17 08:02 | disposition home or self-care (01) ==
LOC: HO.BBR 08:01
PROVIDERS: PCP Family Medicine; Visit Provider Internal Medicine
DX: E83.10 Disorder of iron metabolism, unspecified (principal)
CPT/HCPCS: 85018; 99195

== ENCOUNTER 2024-11-21 08:00 | Outpatient (REF) | payer OTHER, SELFPAY ==
[2024-11-21 10:03] LABS: Alanine Aminotransferase 62 U/L (0-40); Albumin Level 3.9 g/dL (3.5-5.0); Alkaline Phosphatase 67 U/L (39-117); Aspartate Amino Transferase 109 U/L (5-37); Iron 64 mcg/dL (45-160); Percent Iron Saturation 20 % (15-50); Total Iron Binding Capacity 328 mcg/dL (228-428); Total Protein 6.3 g/dL (6.5-8.0); Unsaturated Iron Binding 264 ug/dL
[2024-11-21 10:10] LABS: Ferritin 150 ng/mL (20-250)
== END 2024-11-21 08:01 | disposition home or self-care (01) ==
LOC: HO.BBR 08:00
PROVIDERS: Visit Provider Internal Medicine
DX: E83.19 Other disorders of iron metabolism (principal)
CPT/HCPCS: 36415; 80076; 82728; 83540; 85018; 99195

== ENCOUNTER 2024-11-23 09:17 | Outpatient (AMB) | payer OTHER, SELFPAY ==
--- OUTSIDE RECORDS SUMMARY | 2023-09-26 08:50 | XMS_ITS ---
Author Organization [facility] Address [address] [place] [address] Care Team Providers Care Welfare Adviser Name Role Phone Gonzalo (RETIRED) Gumaro COHEN Primary Care Provider Unavailable Ahsan Barnes Unavailable [phone] REASON FOR VISIT erosive esophagitis Problems Problem Type SNOMED Code ICD Code Onset Dates Problem Status W/U Status Risk Notes Problem Gastro-esophagea l reflux disease without esophagitis (789328781) Gastro-esophage al reflux disease without esophagitis (K21.9) Active confirmed Problem Gastritis (6695395) Gastritis (K29.70) Active confirmed Encounters Encounter Location Date Provider Diagnosis [facility] [place] [address] [place] [phone] 09/26/2023 Ahsan Barnes Gastro-esophageal reflux disease without [...] * YONY SANTAMARIADOB:1965 ( 59 yo M)Acc No.[id number]:09/26/2023 EGD/MAC Patient: YONY LLOYD Provider: Bharat Barnes MD :1965 A ge:58 Y S ex:Male Date:09/26/2023 Address:[address] [place] [address], [id number] Pcp:Gumaro Sánchez (RETIRED) MD Subjective: * Chief Complaints: * 1 . Erosive esophagitis. * Medical History: Objective: * Vitals: Assessment: * Assessment: 1. G krystin-esophageal reflux disease without esophagitis - K21.9 (Primary) 2 .?Hiatal hernia - K44.9 3 . G astritis - K29.70 Plan: * Treatment: * Procedure Codes: 4 3239 UPPER GI ENDOSCOPY, BIOPSY * * The named appointment provid er may or may not be the originator of this progress note, and it is not deemed complete until electronically signed by the appointment provider. Sign off status: Pending * Provider: Bharat Barnes MD Date: 0 09/26/2023 Generated for Ar solano/Sonya/Leelaitting on: 0 11/23/2024 10:17 AM EDT
--- NOTE | 2024-11-23 09:26 | A.OFFPC_ITS ---
Vital Signs 11/23/24 09:33 Height 6 ft 5 in Weight 265 lb BMI 31.4 BP 140/62 H Blood Pressure Location Rt brachial Position Sitting Respiration 17 Pulse 96 Pulse Source Pulse Oximeter Temp 97.9 F Temp Source Temporal Artery Scan Pulse Oximetry (%) 97 Oxygen Delivery Method Room Air Intake Visit Reasons: 3 MO F/UP - JAMES PT - SHOSHANA VERGARA Errand Runner Required: No Accompanied by: Self / Same As Patient Allergies No Known Allergies (No Known Allergies*) Allergy (Verified 11/23/24 09:26) Tobacco use date assessed: 11/23/24 Dental Screening Dental Screen Date: 11/23/24 Did you have a dental visit in the last 12 months?: Yes Did you have a dental problem in the last 6 months where you did not have access to dental care?: No HPI HPI Comments History of Present Illness Details The patient is a 59-year-old male presenting for a follow-up visit to manage multiple chronic medical conditions. He has Type 2 Diabetes Mellitus, for which he takes metformin 1000 mg at night. His last hemoglobin A1c was significantly elevated at 8.8. He reports overall feeling good in managing his diabetes but recognizes this elevated A1c level. Additionally, the patient has a history of Essential Hypertension controlled with lisinopril 20 mg in the morning, amlodipine at night, and the occasional use of metoprolol succinate, for which he seeks a refill today. The blood pressure control is a concern, especially given his diabetes, as it remains on the higher side. The patient also has Hyperlipidemia managed with atorvastatin. He mentioned no recent cholesterol assessment, and one will be reviewed today for appropriate management assessment. For Major Depressive Disorder, he is on citalopram, also seen by a psychiatrist and a therapist. He reports mood improvement, though is currently experiencing some anxiety, particularly around change. He experiences Diabetic Neuropathy, affecting his feet, managed with gabapentin 900 mg at night, which he feels is beneficial. Additionally, he reports Gastroesophageal Reflux Disease, for which he takes omeprazole. The patient reports no history of smoking, alcohol, or drug use. He has no known family history of diabetes, heart disease, or cancer. His father in an auto accident at the age of 57. His surgical history includes an appendectomy, a thumb fracture repair in high school, and a complex history of knee surgeries due to pain, involving multiple replacements. He also has a prosthetic in his elbow and has previously had an Achilles tendon repair. Medical History: - Type 2 Diabetes Mellitus - Essential Hypertension - Hyperlipidemia - Major Depressive Disorder - Diabetic Neuropathy (managed with gracy pentin) - Gastroesophageal Reflux Disease Surgical History: - Appendectomy - Thumb fracture repair in high school - Knee replacement surgeries (twice) - Prosthetic elbow implantation - Achilles tendon repair Medications: - Metformin 1000 mg (nightly) for Type 2 Diabetes Mellitus - Lisinopril 20 mg (morning) for Essenti al Hypertension - Amlodipine for Essential Hypertension (nightly) - Atorvastatin for Hyperlipidemia - Citalopram for Major Depressive Disord er - Gabapentin 900 mg (nightly) for Diabet ic Neuropathy - Mirtazapine for depression - Omeprazole for Gastroesophageal Reflux Disease - Metoprolol succinate (refill requested ) Family History: - No known family history of diabetes, h eart disease, or cancer. - Father in an auto accident at age 57. Diagnostic Results: - Labs: Hemoglobin 14, Platelets low, Li adolph enzymes elevated, A1c 8.8 - Tests: Prior liver ultrasound; another one planned today - No cholesterol results available today ; to be assessed Social: - Denies use of tobacco, alcohol, or rec reational drugs - No known family history of chronic dis eases [facility] Medical History (Updated 11/23/24 @ 10:16 by Osman Vergara MD) Elevated liver enzymes Hyperlipidemia GERD (gastroesophageal reflux disease) Pulmonary sarcoidosis Depression HTN (hypertension) Diabetes Surgical History (Updated 11/22/24 @ 15:50 by Pepper Sommer) History of esophagogastroduodenoscopy (EGD) H/O colonoscopy (~10/05/22) Hx of appendectomy History of Achilles tendon repair H/O wrist surgery History of right knee joint replacement Social History Housing: House Patient Tobacco Use Status: Never used Tobacco e-Cigarette/Vaping Use: Never Used Second Hand Smoke Exposure: No service: No Current occupational status: employed Current occupation: [employer] Questionnaire PHQ-9 Over the last 2 weeks, how often have you been bothered by any of the following problems? 1. Little interest or pleasure in doing things: more than half the days 2. Feeling down, depressed, or hopeless: several days 3. Trouble falling or staying asleep, or sleeping too much: not at all 4. Feeling tired or having little energy: several days 5. Poor appetite or overeating: not at all 6. Feeling bad about yourself - or that you are a failure or have let yourself or your family down: not at all 7. Trouble concentrating on things, such as reading the newspaper or watching television: several days 8. Moving or speaking so slowly that other people could have noticed. Or the opposite - being so fidgety or restless that you have been moving around a lot more than usual: not at all 9. Thoughts that you would be better off or of hurting yourself in some way: not at all Total score: 5 Depression Screening Interpretation: Positive Depression Screening Done: Yes 32086 - PHQ-9 Billing: Yes Source: Developed by Drs. Ahsan Ferguson, Yulisa Gamboa, Julio Foley and colleagues, with an educational tonny from [employer]. Thrive Questionnaire Date Thrive assessed: 11/23/24 I am a: Patient What is your living situation today?: I have a steady place to live Within the past 12 months, did the food you bought not last and you didn't have the money to get more?: Never true Within the past 12 months, did you worry whether your food would run out before you got money to buy more?: Never true Do you have trouble paying for medicines?: No Do you have trouble getting transportation to medical appointments?: No Do you have trouble paying your heating and electricity bill?: No Do you have trouble taking care of your child, family member or friend?: No Do you have trouble with day-to-day activities such as bathing, preparing meals, shopping, managing finances, etc.?: No Are you currently unemployed and looking for a job?: No Are you interested in more education?: No THRIVE Score: 0 AUDIT C Alcohol Use Questionnaire (AUDIT-C) 1. How often do you have a drink containing alcohol?: Never 3. How often do you have six or more drinks on one occasion?: Never Total Score: 0 Score Reviewed/Action Taken: Yes BRONSON-7 AMB Questionnaire BRONSON-7 Date BRONSON - 7 assessed: 12/19/24 Feeling nervous, anxious, or on edge: 1 = Several days Not being able to stop or control worryin = Not at all Worrying too much about different things: 0 = Not at all Trouble relaxin = Not at all Being so restless that it is hard to sit still: 0 = Not at all Becoming easily annoyed or irritable: 0 = Not at all Feeling afraid as if something awful might happen: 0 = Not at all Total BRONSON-7 score (0-4 normal; 5-9 mild; 10-14 moderate; 15-21 severe): 1 Source: Developed by Drs. Ahsan Ferguson, Yulisa Gamboa, Julio Foley and colleagues, with an educational tonny from [employer]. BRONSON-7 Assessment Billing BRONSON-7 Assessment Tool: BRONSON-7 Assessment 38935 Review of Systems Const Details: - General: Denies new complaints or concerns, reports wellness - Cardiovascular: Denies chest pain or shortness of breath - Gastrointestinal: Denies diarrhea; reports GERD - Musculoskeletal: Reports previous nerve problems with feet, no joint pains other than feet at night All systems reviewed & are unremarkable except as reviewed in HPI and above Physical exam (Primary Care) Vital Signs: Last Vital Signs Temp 97.9 F 11/23/24 09:33 Pulse 96 11/23/24 09:33 Resp 17 11/23/24 09:33 BP 140/62 H 11/23/24 09:33 Pulse Ox 97 11/23/24 09:33 Oxygen Delivery Method Room Air 11/23/24 09:33 BMI result Body Mass Index 31.4 Tobacco/Smoking Status: Tobacco use Status Tobacco use date assessed 11/23/24 11/23/24 09:36 Patient Tobacco Use Status Never used Tobacco 11/23/24 09:36 e-Cigarette/Vaping Use Never Used 11/23/24 09:36 Depression Screening Interpretation: Positive Const Other: General: Alert and oriented, Well nourished, No acute distress. Eye: Pupils are equal, round and reactive to light, Intact accommodation, Extraocular movements are intact, Normal conjunctiva, Vision unchanged. HENT: Normocephalic, Atraumatic, Tympanic membranes are clear, Normal hearing, Oral mucosa is moist, No pharyngeal erythema, Ear canals patent. Respiratory: Lungs CTA bilaterally, No wheeze, Respirations are non-labored. Cardiovascular: Regular rate, Regular rhythm, S1 auscultated, S2 auscultated, No murmur, Good pulses equal in all extremities, Normal peripheral perfusion, No edema. Gastrointestinal: Soft, Non-tender, Non-distended, Normal bowel sounds, No organomegaly. Musculoskeletal: Normal range of motion, Normal strength, No tenderness, No swelling, Normal gait. Swellling over right elbow which is fluctuant Integumentary: Warm, Dry, [place], Intact. Neurologic: Alert, Oriented, Normal sensory, Normal motor function, No focal defects, Cranial Nerves II-XII are grossly intact, Normal deep tendon reflexes. Psychiatric: Cooperative, Anxious mood, Appropriate affect, Normal judgment. Coding Level of Care Code New Pt Level 4 (01408) Complex EM visit Add On G2211 Diagnoses Hypertension, unspecified type I10 Hypertension type: unspecified Type 2 diabetes mellitus with other specified complication, without long-term current use of insulin E11.69 Diabetes mellitus type: type 2 Diabetes mellitus correction insulin use: without correction use Diabetes mellitus complication status: with other specified complication Depression, unspecified depression type F32.A Depression Type: unspecified Gastroesophageal reflux disease, unspecified whether esophagitis present K21.9 Esophagitis presence: esophagitis presence not specified Elevated liver enzymes R74.8 Hyperlipidemia, unspecified hyperlipidemia type E78.5 Hyperlipidemia type: unspecified Additional Codes PHQ-9 - 67009 - PHQ-9 Billing: Yes ([id number]) BRONSON-7 Assessment Billing - BRONSON-7 Assessment Tool: BRONSON-7 Assessment [id number] ([id number]) Assessment & Plan Assessment & Plan (1) HTN (hypertension): Comment: - Reinforce the importance of blood pressure monitoring. - Continue lisinopril 20 mg and amlodipine. - Ample room for medication adjustments. - Importance of home BP monitoring was emphasized. - Informed to bring blood pressure log at next clinic visit we will make adjustments based on that Code(s): I10 - Essential (primary) hypertension Category: Medical Qualifiers: Hypertension type: unspecified Qualified Code(s): I10 - Essential (primary) hypertension (2) Diabetes: Comment: - Adjust medication management given the previous result of 8.8 based on new eresults - Repeat blood work for current A1c level. - Emphasis on medication adherence and potential intensification. - Maintain gabapentin 900mg QHS therapy as the patient reports benefit from the current regimen. Code(s): E11.9 - Type 2 diabetes mellitus without complications Category: Medical Qualifiers: Diabetes mellitus type: type 2 Diabetes mellitus intermediate frame tender insulin use: without intermediate frame tender use Diabetes mellitus complication status: with other specified complication Qualified Code(s): E11.69 - Type 2 diabetes mellitus with other specified complication (3) Depression: Comment: - Continue current antidepressant regimen with citalopram and mirtazapine. - Regular therapy sessions with his psychiatrist and therapist were acknowledged. Code(s): F32.A - Depression, unspecified Category: Medical Qualifiers: Depression Type: unspecified Qualified Code(s): F32.A - Depression, unspecified (4) GERD (gastroesophageal reflux disease): Comment: - Continue omeprazole for management. - EGD completed in 2023 Code(s): K21.9 - Gastro-esophageal reflux disease without esophagitis Category: Medical Qualifiers: Esophagitis presence: esophagitis presence not specified Qualified Code(s): K21.9 - Gastro-esophageal reflux disease without esophagitis (5) Elevated liver enzymes: Comment: Blood work from earlier this year demonstrated an elevated liver enzymes on 2 e pisodes. We will repeat liver enzymes today in addition a ultrasound of the liver. For his chart does appear that he does have a remote alcohol use history however denies the same which may possibly be contributing although ALT is higher than AST. Hepatitis panel is negative therefore unlikely to be the etiology. There does remain a possibility of fatty liver therefore an ultrasound and help me evaluate further Code(s): R74.8 - Abnormal levels of other serum enzymes Category: Medical (6) Hyperlipidemia: Comment: - Monitor with a new cholesterol test today. - Consider potential adjustments to atorvastatin dosage based on new results. Code(s): E78.5 - Hyperlipidemia, unspecified Category: Medical Qualifiers: Hyperlipidemia type: unspecified Qualified Code(s): E78.5 - Hyperlipidemia, unspecified Plan: Health Maintenance: - Ensure repeat A1c and liver ultrasound. - Blood pressure log recommended for the patient to handle hypertension. - Encourage adherence to statin medication and balanced diet for lipid management. - Schedule follow-up in three months. Plan The patient and I discussed his current management plan focusing on his diabetes, hypertension, and hyperlipidemia. We acknowledged the need for better control of his blood pressure and A1c levels. The importance of regular monitoring, appropriate medication adjustments, and lifestyle interventions were emphasized. We discussed repeating lab tests, including A1c and liver ultrasound, to better guide therapy adjustments. The patient consented to the treatment regimens and understood the importance of follow-up visits and regular monitoring, especially for his chronic conditions and the newly planned diagnostic work. Orders: Orders Comprehensive Met. Panel Today E11.9 - Type 2 diabetes mellitus without complications, I10 - Essential (primary) hypertension HIV Ab/Ag Today E11.9 - Type 2 diabetes mellitus without complications, I10 - Essential (primary) hypertension TSH reflex Free T4 Today E11.9 - Type 2 diabetes mellitus without complications, I10 - Essential (primary) hypertension Vitamin D 25-OH Total Today E11.9 - Type 2 diabetes mellitus without complications, I10 - Essential (primary) hypertension Complete Blood Count Auto Diff Today E11.9 - Type 2 diabetes mellitus without complications, I10 - Essential (primary) hypertension Hemoglobin A1c Today E11.9 - Type 2 diabetes mellitus without complications, I10 - Essential (primary) hypertension Lipid Panel Today E11.9 - Type 2 diabetes mellitus without complications, I10 - Essential (primary) hypertension Syphilis Screen Today E11.9 - Type 2 diabetes mellitus without complications, I10 - Essential (primary) hypertension US abdomen limited Today R74.8 - Abnormal levels of other serum enzymes Medications: Changed From metoprolol succinate ER 50 mg PO DAILY To metoprolol succinate ER 50 mg PO DAILY 90 tabs 3RF 90 days Patient Instructions: - Continue with prescribed medications as discussed. - Maintain a blood pressure log at home. - Schedule follow-up in three months to reassess blood pressure, A1c, and lipid levels. - Report any changes in mental health symptoms to the psychiatrist. - Undergo the scheduled diagnostic tests, including another liver ultrasound and fasting lipid panel. - Follow a healthy diet and regular activity for better disease management.
[2024-11-23 09:33] VITALS: BP 140/62; PULSE 96; RESP 17; TEMP 36.6; O2SAT 97; BMI 31.4
--- OUTSIDE RECORDS SUMMARY | 2024-11-23 10:18 | XMS_ITS | Patient Health Record ---
Author Organization [facility] Address [address] [place] [address] Care Team Providers Care Freight Loader Name Role Phone Gumaro Sánchez MD Primary Care Provider Unavailab ChacondanutaJenifer Unavailable [phone] Reason For Referral No Information Medications Medication [...] Status W/U Status Risk Notes Problem Type II diabetes mellitus without complication ([id number]) Type 2 diabetes mellitus without complication, without long-term current use of insulin (E11.9) Active confirmed Plan Of Treatment Pending Test Test Name Order Date 68639- Debride <25 sq cm 09/07/2017 Insurance Providers Payer Name Payer Address Payer Phone Subscriber Number Group Number Insured Name Patient Relationship to Insured Coverage Start Date Coverage End Date [facility] [address] [id number] [id number] [facility] hat, Shima Spouse - patient is the spouse of the insured Medical (General) History Medical History History ICD Code Diabetic High blood pressure Sarcoidosis Bone implants/screws Surgical History Surgery Date(Month/Year) appendectomy 1990 achilles tendon repair 1994 right knee replacement (first one failed ) 2013,2015 wrist surgery
--- OUTSIDE RECORDS SUMMARY | 2024-11-23 10:18 | XMS_ITS | Patient Health Record ---
Author Organization [facility] Address [address] [place] [address] Care Team Providers Care Flatwork Feeder Name Role Phone Gonzalo (RETIRED) Gumaro COHEN Primary Care Provider Unavailable Ahsan Barnes Unavailable [phone] Allergies No Known Allergies Results Component Value Reference Range Notes Therapeutic Phlebotomy Reviewed date:03/09/2024 09:18:46 PM Interpretation: Performing Lab:[facility], [address] [place] [phone] Notes/Report: THER/HGB 14.9 14.0-18.0 g/dL THER/HCT TNP 42.0-52.0 % Therapeutic Phlebotomy Phlebotomy Performed 500 mls drawn on 03/08/24. Please note that a copy of this report has been sent to the Primary Care Physician, the ordering physician and any physician designated by patient request. Liver Panel Reviewed date:05/15/2024 12:41:43 PM Interpretation: Performing Lab:[address] [phone] Notes/Report: Bilirubin Total 1.0 0.0-1.0 mg/dL Bilirubin Direct 0.3 0.0-0.5 mg/dL Aspartate Amino Transferase 72 5-37 U/L Alanine Aminotransferase 64 0-40 U/L Total Protein 6.5 6.5-8.0 g/dL Albumin Level 3.8 3.5-5.0 g/dL Alkaline Phosphatase 64 39-117 U/L IRON PROFILE Reviewed date:05/15/2024 12:41:32 PM Interpretation: Performing Lab:[facility], [address] [place] [phone] Notes/Report: Iron 98 45-160 mcg/dL Total Iron Binding Capacity 287 228-428 mcg/d L Percent Iron Saturation 34 15-50 % Unsaturated Iron Binding 189 Ferritin (Not yet reviewed by provider) Interpretation: Performing Lab:[facility], [address] [place] [phone] Notes/Report: Ferritin 358 20-250 ng/mL Therapeutic Phlebotomy Reviewed date:05/15/2024 12:41:11 PM Interpretation: Performing Lab:[facility], [address] [place] [phone] Notes/Report: THER/HGB 15.4 14.0-18.0 g/dL THER/HCT TNP 42.0-52.0 % Therapeutic Phlebotomy Phlebotomy Performed 500 mls drawn on 05/15/24. Please note that a copy of this report has been sent to the Primary Care Physician, the ordering physician and any physician designated by patient request. Therapeutic Phlebotomy (Not yet reviewed by provider) Interpretation: Performing Lab:[facility], [address] [place] [phone] Notes/Report: THER/HGB 14.9 14.0-18.0 g/dL THER/HCT TNP 42.0-52.0 % Therapeutic Phlebotomy Phlebotomy Performed 500 mls drawn on 07/17/24. Please note that a copy of this report has been sent to the Primary Care Physician, the ordering physician and any physician designated by patient request. Therapeutic Phlebotomy Reviewed date:09/17/2024 11:53:38 PM Interpretation: Performing Lab:[facility], [address] [place] [phone] Notes/Report: THER/HGB 13.9 14.0-18.0 g/dL THER/HCT TNP 42.0-52.0 % Therapeutic Phlebotomy Phlebotomy Performed 500 mls drawn on 09/17/24. Please note that a copy of this report has been sent to the Primary Care Physician, the ordering physician and any physician designated by patient request. Liver Panel (Not yet reviewe d by provider) Interpretation: Performing Lab:[facility], [address] [place] [phone] Notes/Report: Bilirubin Total 0.6 0.0-1.0 mg/dL Bilirubin Direct 0.2 0.0-0.5 mg/dL Aspartate Amino Transferase 109 5-37 U/L Alanine Aminotransferase 62 0-40 U/L Total Protein 6.3 6.5-8.0 g/dL Albumin Level 3.9 3.5-5.0 g/dL Alkaline Phosphatase 67 39-117 U/L IRON PROFILE Reviewed date:11/22/2024 06:40:33 PM Interpretation: Performing Lab:[address] [phone] Notes/Report: Iron 64 45-160 mcg/dL Total Iron Binding Capacity 328 228-428 mcg/d L Percent Iron Saturation 20 15-50 % Unsaturated Iron Binding 264 Ferritin (Not yet reviewed b y provider) Interpretation: Performing Lab:[address] [address] Notes/Report: Ferritin 150 20-250 ng/mL Therapeutic Phlebotomy Reviewed date:11/22/2024 06:40:23 PM Interpretation: Performing Lab:[facility], [address] [place] [phone] Notes/Report: THER/HGB 14.3 14.0-18.0 g/dL THER/HCT TNP 42.0-52.0 % Therapeutic Phlebotomy Phlebotomy Performed 500 mls drawn on 11/21/24. Please note that a copy of this report has been sent to the Primary Care Physician, the ordering physician and any physician designated by patient request. Reason For Referral No Information Medications Medication SIG (Take, Route, Frequency, Duration) Notes Start Date End Date Status Omeprazole 20 MG Oral for 90 N ot-Taking amLODIPine Besylate 5 MG Oral for 90 Active Mirtazapine 15 MG Oral for 90 Active metFORMIN HCl Active Atorvastatin Calcium Active Omeprazole 40 MG TAKE 1 CAPSULE ORALL Y EVERY MORNING 30 DAYS for 90 Active Sildenafil Citrate 100 MG TAKE 1 [...] Problem Status W/U Status Risk Notes Problem 847227916 Colon cancer screening (Z12.11) Active confirmed Problem Esophageal reflux (120178202) Esophageal reflux (K21.9) Active confirmed Problem Gastro-esophageal reflux disease without esophagitis (945593585) Gastro-esophageal reflux disease without esophagitis (K21.9) Active confirmed Problem 804162694 History of adenomatous polyp of colon (Z86.010) Active confirmed Problem Elevated liver enzymes level (854199201) Elevated liver function tests (R79.89) Active confirmed Problem 76396397 Preprocedural examination (Z01.818) Active confirmed Problem Fatty liver (237672690) Fatty liver (K76.0) Active confirmed Problem Iron excess (91869702) Iron excess (E83.19) Active confirmed Problem Erosive esophagitis (66154746) Erosive esophagitis (K22.10) Active confirmed Problem Gastritis (7636301) Gastritis (K29.70) Active confirmed Problem Elevated liver enzymes level (602969583) Elevated liver function tests (R94.5) Active confirmed Problem Erosive gastritis (5255386930922529 ) Erosive gastritis (K29.60) Active confirmed Problem Diverticulosis of colon (512978912) Diverticulosis of colon (K57.30) Active confirmed Problem 938153993 Gastroesophageal reflux disease, unspecified whether esophagitis present (K21.9) Active confirmed Vital Signs Temperature 97.3 degrees Fahrenheit 01/25/2024 Blood pressure diastolic 00 mm Hg 01/25/2024 Height 77 in 01/25/2024 Blood pressure systolic 000 mm Hg 01/25/2024 Weight 270 lb 6 oz lbs 01/25/2024 BMI 32.06 kg/m2 01/25/2024 Encounters Encounter Location Date Provider Diagnosis [facility] [address] [facility] [address] [place] [phone] 01/25/2024 Ahsan Barnes Elevated liver funct ion tests R79.89 ; Fatty liver K76.0 ; Colon cancer screening Z12.11 ; Gastroesophageal reflux disease, unspecified whether esophagitis present K21.9 ; History of adenomatous polyp of colon Z86.010 ; Erosive esophagitis K22.10 and Iron excess E83.19 [facility] [address] [place] [address] 01/25/2024 Ahsan Barnes [facility] [address] [place] [address] 01/25/2024 Ahsan Barnes Assessments Encounter Date Diagnosis [...] disease. I shall arrange that through the [facility]. I did review [...] disease. I shall arrange that through the [facility]. I did review [...] phlebotomy every 2 months scheduled at the [facility] Overall, Yony appears [...] disease. I shall arrange that through the [facility]. I did review [...] disease. I shall arrange that through the [facility]. I did review [...] disease. I shall arrange that through the [facility]. I did review [...] esophagitis (ICD-10 - K22.10) Continue omeprazole daily longterm Overall, Yony appears well. He is remaining [...] disease. I shall arrange that through the [facility]. I did review [...] disease. I shall arrange that through the [facility]. I did review [...] 09/25/2023 HEMOCHROMATOSIS (C282Y) 10/03/2023 HEMOCHROMATOSIS (C282Y) 09/25/2023 Liver Panel 11/21/2024 Ferritin 09/25/2023 Ferritin 11/21/2024 Ferritin 07/26/2023 Ferritin 10/03/2023 Ferritin 05/15/2024 Alpha 1 Anti-trypsin 07/26/2023 Hepatitis B,C Profile 07/26/2023 Therapeutic Phlebotomy 07/17/2024 Future Test Test Name Order Date COLONOSCOPY 04/03/2015 UPPER GI ENDOSCOPY 07/27/2022 COLONOSCOPY 07/27/2022 UPPER GI ENDOSCOPY 07/26/2023 Insurance Providers Payer Name Payer Address Payer Phone Subscriber Number Group Number Insured Name Patient Relationship to Insured Coverage Start Date Coverage End Date [facility] Insurance ([facility]) [address] [place] [id number] YONY HOPE Self - patient is the insured Medical (General) History Medical History History ICD Code NIDDM Hypertension Depression Hyperlipidemia Denies NC,CVA,renal disease Pulmonary sarcoidosis--diagn osed approx 15 yrs [...]
== END 2024-11-23 09:56 | disposition home or self-care (01) ==
PROVIDERS: PCP Student in an Organized Health Care Education/Training Program; Visit Provider Student in an Organized Health Care Education/Training Program
DX: I10 Essential (primary) hypertension (principal); E11.69 Type 2 diabetes mellitus with other specified complication; F32.A Depression, unspecified; K21.9 Gastro-esophageal reflux disease without esophagitis; R74.8 Abnormal levels of other serum enzymes; E78.5 Hyperlipidemia, unspecified

== ENCOUNTER → 2024-11-23 09:17 | Outpatient (BNVA) | payer OTHER, SELFPAY | PROVIDERS: PCP Family Medicine; Visit Provider Student in an Organized Health Care Education/Training Program | DX: I10 Essential (primary) hypertension (principal); E11.69 Type 2 diabetes mellitus with other specified complication; F32.A Depression, unspecified; K21.9 Gastro-esophageal reflux disease without esophagitis; R74.8 Abnormal levels of other serum enzymes; E78.5 Hyperlipidemia, unspecified; Z79.899 Other long term (current) drug therapy; Z13.31 Encounter for screening for depression | CPT/HCPCS: 96127 ==

== ENCOUNTER 2025-01-31 11:22 | Outpatient (AMB) | payer OTHER, SELFPAY ==
--- OUTSIDE RECORDS SUMMARY | 2023-09-26 07:50 | XMS_ITS ---
Author Organization [facility] Address [address] [place] [address] Care Team Providers Care Solutions Architect Consultant Name Role Phone Gonzalo (RETIRED) Gumaro COHEN Primary Care Provider Unavailable Ahsan Barnes Unavailable [phone] REASON FOR VISIT erosive esophagitis Problems Problem Type SNOMED Code ICD Code Onset Dates Problem Status W/U Status Risk Notes Problem Gastro-esophagea l reflux disease without esophagitis (756953955) Gastro-esophage al reflux disease without esophagitis (K21.9) Active confirmed Problem Gastritis (9970281) Gastritis (K29.70) Active confirmed Encounters Encounter Location Date Provider Diagnosis [facility] Outpatient [address] [place] [phone] 09/26/2023 Ahsan Barnes Gastro-esophageal reflux disease without esophagitis K21.9 ; Hiatal hernia K44.9 and Gastritis K29.70 Assessments Encounter Date Diagnosis (ICD Code) Assessment Notes Treatment Notes Treatment Clinical Notes Section Notes 09/26/2023 Gastro-esophagea l reflux disease without esophagitis (ICD-10 - K21.9) 09/26/2023 Hiatal hernia (ICD-10 - K44.9) 09/26/2023 Gastritis (ICD-10 - K29.70) Plan Of Treatment No Information Progress Notes * YONY SANTAMARIADOB:1965 ( 59 yo M)Acc No.[id number]:09/26/2023 EGD/MAC Patient: YONY LLOYD Provider: Bharat Barnes MD :1965 A ge:58 Y S ex:Male Date:09/26/2023 Address:[address] [place] [address], [id number] Pcp:Gumaro Sánchez (RETIRED) MD Subjective: * Chief Complaints: * E rosive esophagitis Assessment: * Assessment: 1. G krystin-esophageal reflux disease without esophagitis - K21.9 (Primary) 2 .?Hiatal hernia - K44.9 3 . G astritis - K29.70 Plan: * Procedure Codes: 4 3239 UPPER GI ENDOSCOPY, BIOPSY Billing Information: * Procedure Codes: 45155 UPPER GI ENDOSCOPY, BIOPSY. * The named appointment provid er may or may not be the originator of this progress note, and it is not deemed complete until electronically signed by the appointment provider. Sign off status: Pending * Provider: Bharat Barnes MD Date: 0 09/26/2023 Generated for Ar solano/Sonya/Masoudsmitting on: 1 04/02/2024 09:07 AM EST
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
[2025-01-31 11:36] VITALS: BP 134/70; PULSE 59; RESP 20; TEMP 36.1; O2SAT 98; BMI 30.4
--- OUTSIDE RECORDS SUMMARY | 2025-01-31 17:35 | XMS_ITS | Patient Health Record ---
Author Organization [facility] Address [address] [place] [address] Care Team Providers Care Rn Cardiovascular Name Role Phone Gonzalo (RETIRED) Gumaro COHEN Primary Care Provider Unavailable Ahsan Barnes Unavailable [phone] Allergies No Known Allergies Results Component Value Reference Range Flag Notes Therapeutic Phlebotomy Reviewed date:03/09/2024 09:18:46 PM Interpretation: Performing Lab:[facility], [address] [place] [phone] Notes/Report: THER/HGB 14.9 14.0-18.0 g/dL N THER/HCT TNP 42.0-52.0 % Therapeutic Phlebotomy Phlebotomy Performed 500 mls drawn on 03/08/24. Please note that a copy of this report has been sent to the Primary Care Physician, the ordering physician and any physician designated by patient request. Ferritin (Not yet reviewed b y provider) Interpretation: Performing Lab:[facility], [address] [place] [phone] Notes/Report: Ferritin 358 20-250 ng/mL H Liver Panel Reviewed date:05/15/2024 12:41:43 PM Interpretation: Performing Lab:[facility], [address] [place] [phone] Notes/Report: Bilirubin Total 1.0 0.0-1.0 mg/dL N Bilirubin Direct 0.3 0.0-0.5 mg/dL N Aspartate Amino Transferase 72 5-37 U/L H Alanine Aminotransferase 64 0-40 U/L H Total Protein 6.5 6.5-8.0 g/dL N Albumin Level 3.8 3.5-5.0 g/dL N Alkaline Phosphatase 64 39-117 U/L N IRON PROFILE Reviewed date:05/15/2024 12:41:32 PM Interpretation: Performing Lab:[facility], [address] [place] [phone] Notes/Report: Iron 98 45-160 mcg/dL N Total Iron Binding Capacity 287 228-428 mcg/dL N Percent Iron Saturation 34 15-50 % N Unsaturated Iron Binding 189 Therapeutic Phlebotomy Reviewed date:05/15/2024 12:41:11 PM Interpretation: Performing Lab:[facility], [address] [place] [phone] Notes/Report: THER/HGB 15.4 14.0-18.0 g/dL N THER/HCT TNP 42.0-52.0 % Therapeutic Phlebotomy Phlebotomy Performed 500 mls drawn on 05/15/24. Please note that a copy of this report has been sent to the Primary Care Physician, the ordering physician and any physician designated by patient request. Therapeutic Phlebotomy (Not yet reviewed by provider) Interpretation: Performing Lab:[facility], [address] [place] [phone] Notes/Report: THER/HGB 14.9 14.0-18.0 g/dL N THER/HCT TNP 42.0-52.0 % Therapeutic Phlebotomy Phlebotomy Performed 500 mls drawn on 07/17/24. Please note that a copy of this report has been sent to the Primary Care Physician, the ordering physician and any physician designated by patient request. Therapeutic Phlebotomy Reviewed date:09/17/2024 11:53:38 PM Interpretation: Performing Lab:[facility], [address] [place] [phone] Notes/Report: THER/HGB 13.9 14.0-18.0 g/dL L THER/HCT TNP 42.0-52.0 % Therapeutic Phlebotomy Phlebotomy Performed 500 mls drawn on 09/17/24. Please note that a copy of this report has been sent to the Primary Care Physician, the ordering physician and any physician designated by patient request. Liver Panel (Not yet reviewe d by provider) Interpretation: Performing Lab:[facility], [address] [place] [phone] Notes/Report: Bilirubin Total 0.6 0.0-1.0 mg/dL N Bilirubin Direct 0.2 0.0-0.5 mg/dL N Aspartate Amino Transferase 109 5-37 U/L H Alanine Aminotransferase 62 0-40 U/L H Total Protein 6.3 6.5-8.0 g/dL L Albumin Level 3.9 3.5-5.0 g/dL N Alkaline Phosphatase 67 39-117 U/L N Ferritin (Not yet reviewed b y provider) Interpretation: Performing Lab:[facility], [address] [place] [phone] Notes/Report: Ferritin 150 20-250 ng/mL N IRON PROFILE Reviewed date:11/22/2024 06:40:33 PM Interpretation: Performing Lab:[facility], [address] [place] [phone] Notes/Report: Iron 64 45-160 mcg/dL N Total Iron Binding Capacity 328 228-428 mcg/dL N Percent Iron Saturation 20 15-50 % N Unsaturated Iron Binding 264 Therapeutic Phlebotomy Reviewed date:11/22/2024 06:40:23 PM Interpretation: Performing Lab:[facility], [address] [place] [phone] Notes/Report: THER/HGB 14.3 14.0-18.0 g/dL N THER/HCT TNP 42.0-52.0 % Therapeutic Phlebotomy Phlebotomy Performed 500 mls drawn on 11/21/24. Please note that a copy of this report has been sent to the Primary Care Physician, the ordering physician and any physician designated by patient request. Reason For Referral No Information Medications Medication SIG (Take, Route, Frequency, Duration) Notes Start Date End Date Status Omeprazole 20 MG Capsule Delayed Release Oral; Duration: 90 Not-Taking/PRN amLODIPine Besylate 5 MG Tablet Oral; Duration: 90 Active Mirtazapine 15 MG Tablet Oral; Duration: 90 Active metFORMIN HCl Active Atorvastatin Calcium Active Omeprazole 40 MG Capsule Delayed Release TAKE 1 CAPSULE ORALLY EVERY MORNING 30 DAYS; Duration: 90 Active Sildenafil Citrate 100 MG Tablet TAKE 1 TABLET 1HR PRIOR TO INTERCOURSE Oral; Duration: 25 Active Metoprolol Succinate ER 50 MG Tablet Extended Release 24 Hour TAKE 1 TABLET BY MOUTH EVERY DAY Oral; Duration: 90 Active Naltrexone HCl 50 MG Tablet Oral; Duration: 90 Active Citalopram Hydrobromide 20 MG Tablet Oral; Duration: 90 Active Allergy 24-HR 180 MG Tablet 1 tablet Swallow whole with water; do not take with fruit juices. 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 drinker/socially; nonsmoker Nonsmoker; Recovering alcoho lic Nonsmoker; Recovering alcoho lic Nonsmoker; Recovering alcoho lic Problems Problem Type SNOMED Code ICD Code Onset Dates Problem Status W/U Status Risk Notes Problem Colon cancer screening (637182146) Colon cancer screening (Z12.11) Active confirmed Problem Esophageal reflux (705988150) Esophageal reflux (K21.9) Active confirmed Problem Gastro-esophageal reflux disease without esophagitis (664767138) Gastro-esophageal reflux disease without esophagitis (K21.9) Active confirmed Problem History of adenomatous polyp of colon (019373873) History of adenomatous polyp of colon (Z86.010) Active confirmed Problem Elevated liver enzymes level (995608866) Elevated liver function tests (R79.89) Active confirmed Problem Preprocedural examination (261644736041952) Preprocedural examination (Z01.818) Active confirmed Problem Fatty liver (053614680) Fatty liver (K76.0) Active confirmed Problem Iron excess (71857122) Iron excess (E83.19) Active confirmed Problem Erosive esophagitis (02871647) Erosive esophagitis (K22.10) Active confirmed Problem Gastritis (4501491) Gastritis (K29.70) Active c onfirmed Problem Elevated liver enzymes level (374665398) Elevated liver function tests (R94.5) Active confirmed Problem Erosive gastritis (0052171152181209) Erosive gastritis (K29.60) Active confirmed Problem Diverticulosis of colon (329064459) Diverticulosis of colon (K57.30) Active confirmed Problem Gastroesophageal reflux disease (554032912) Gastroesophageal reflux disease, unspecified whether esophagitis present (K21.9) Active confirmed Plan Of Treatment Pending Test Test Name Order Date LIVER PROFILE 07/26/2023 LIVER PROFILE 09/25/2023 LIVER PROFILE 10/03/2023 IRON + IBC (FE) 10/03/2023 IRON + IBC (FE) 09/25/2023 IRON + IBC (FE) 07/26/2023 HEMOCHROMATOSIS (C282Y) 09/25/2023 HEMOCHROMATOSIS (C282Y) 10/03/2023 Liver Panel 11/21/2024 Ferritin 11/21/2024 Ferritin 05/15/2024 Ferritin 10/03/2023 Ferritin 09/25/2023 Ferritin 07/26/2023 Alpha 1 Anti-trypsin 07/26/2023 Hepatitis B,C Profile 07/26/2023 Therapeutic Phlebotomy 07/17/2024 Future Test Test Name Order Date COLONOSCOPY 04/03/2015 UPPER GI ENDOSCOPY 07/27/2022 COLONOSCOPY 07/27/2022 UPPER GI ENDOSCOPY 07/26/2023 Insurance Providers Payer Name Payer Address Payer Phone Subscriber Number Group Number Insured Name Patient Relationship to Insured Coverage Start Date Coverage End Date [facility] [address] [place] [phone] [id number] YONY SANTAMARIA Self - patient is the insured Medical (General) History Medical History History ICD Code NIDDM Hypertension Depression Hyperlipidemia Denies RI,CVA,renal disease Pulmonary sarcoidosis--diagn osed approx 15 yrs [...]
--- OUTSIDE RECORDS SUMMARY | 2025-01-31 17:35 | XMS_ITS | Patient Health Record ---
Author Organization [facility] Address [address] [place] [address] Care Team Providers Care Care Management Assistant Name Role Phone Gumaro Sánchez MD Primary Care Provider Unavailab ChacondanutaJenifer Unavailable [phone] Reason For Referral No Information Medications Medication [...] Problem Type II diabetes mellitus without complication (315115308) Type 2 diabetes mellitus without complication, without long-term current use of insulin (E11.9) Active confirmed Plan Of Treatment Pending Test Test Name Order Date 52709- Debride <25 sq cm 09/07/2017 Insurance Providers Payer Name Payer Address Payer Phone Subscriber Number Group Number Insured Name Patient Relationship to Insured Coverage Start Date Coverage End Date [facility] [address] [place] [address] [id number] [facility] hat, [place] Spouse - patient is the spouse of the insured Medical (General) History Medical History History ICD Code Diabetic High blood pressure Sarcoidosis Bone implants/screws Surgical History Surgery Date(Month/Year) appendectomy 1990 achilles tendon repair 1994 right knee replacement (first one failed ) 2013,2015 wrist surgery
== END 2025-01-31 12:03 | disposition home or self-care (01) ==
LOC: HO.HMCHD 11:23
PROVIDERS: PCP Student in an Organized Health Care Education/Training Program; Visit Provider Student in an Organized Health Care Education/Training Program
DX: F10.90 Alcohol use, unspecified, uncomplicated (principal); R74.8 Abnormal levels of other serum enzymes; E11.69 Type 2 diabetes mellitus with other specified complication; E72.20 Disorder of urea cycle metabolism, unspecified; I10 Essential (primary) hypertension; G62.9 Polyneuropathy, unspecified; V89.2XXA Person injured in unspecified motor-vehicle accident, traffic, initial encounter

== ENCOUNTER 2025-01-31 12:12 | Outpatient (REF) | payer OTHER, SELFPAY ==
[2025-01-31 12:30] LABS: MANUAL DIFF FLAG NO
[2025-01-31 12:38] LABS: Ammonia 22 umol/L (13-55)
[2025-01-31 13:18] LABS: Hematocrit 36.9 % (42.0-52.0); Hemoglobin 12.5 g/dl (14.0-18.0); Imm Gran Abs Auto 0.01 X10*3/uL (0.00-0.03); Imm Gran Pct Auto 0.3 % (0.0-0.4); Lymphocytes Absolute Auto 0.8 X10*3/uL (1.2-4.9); Mean Corpuscular HGB Conc 33.9 g/dl (31.0-36.0); Mean Corpuscular Hemoglobin 31.5 pg (27.0-33.0); Mean Corpuscular Volume 92.9 fL (80.0-98.0); NRBC Abs Auto 0.000 X10*3/uL (0.0-0.012); NRBC Pct Auto 0.0 /100WBC (0.0-0.2); Platelet Count 231 X10*3/uL (160-400); Red Blood Count 3.97 X10*6/uL (4.60-5.80); White Blood Count 3.8 X10*3/uL (4.8-10.8)
[2025-01-31 14:17] LABS: Alanine Aminotransferase 50 U/L (0-40); Albumin Level 4.2 g/dL (3.5-5.0); Alkaline Phosphatase 161 U/L (39-117); Anion Gap 10 (12-20); Aspartate Amino Transferase 49 U/L (5-37); Blood Urea Nitrogen 11 mg/dL (9-16); Calcium 9.4 mg/dL (8.4-10.2); Carbon Dioxide 28 mmol/L (22-29); Chloride 99 mmol/L (96-108); Cholesterol 111 mg/dL (<200); Estimated Glomerular Filt Rate > 60; HDL Cholesterol 28 mg/dL (>40); Potassium 4.2 mmol/L (3.3-5.1); Sodium 133 mmol/L (135-145); Total Protein 7.4 g/dL (6.5-8.0); Triglycerides 84 mg/dL (<150)
[2025-01-31 15:33] LABS: Free T4 (Free Thyroxine) 0.89 ng/dL (0.71-1.85)
[2025-02-01 07:51] LABS: Syphilis Screen Nonreactive (Nonreactive)
[2025-02-01 08:36] LABS: HIV Num 1 0.07 S/CO (0.00-0.99)
== END 2025-01-31 12:13 | disposition home or self-care (01) ==
LOC: HO.LAB 12:12
PROVIDERS: Visit Provider Student in an Organized Health Care Education/Training Program
DX: Z01.84 Encounter for antibody response examination (principal); Z13.21 Encounter for screening for nutritional disorder; Z11.4 Encounter for screening for human immunodeficiency virus [HIV]; I10 Essential (primary) hypertension; E11.9 Type 2 diabetes mellitus without complications; K72.90 Hepatic failure, unspecified without coma
CPT/HCPCS: 36415; 80053; 80061; 82140; 82306; 83036; 84439; 84443; 85025; 86780; 87389

== ENCOUNTER 2025-03-05 12:47 | Outpatient (AMB) | payer OTHER, SELFPAY ==
--- OUTSIDE RECORDS SUMMARY | 2023-09-26 07:50 | XMS_ITS ---
Author Organization [facility] Address [address] [place] [address] Care Team Providers Care Lead Section Supervisor Name Role Phone MANSOOR VERGARA M.D. Primary Care Provider Ahsan Loving [phone] REASON FOR VISIT erosive esophagitis Problems Problem Type SNOMED Code ICD Code Onset Dates Problem Status W/U Status Risk Notes Problem Gastro-esophagea l reflux disease without esophagitis (614138851) Gastro-esophage al reflux disease without esophagitis (K21.9) Active confirmed Problem Gastritis (2328521) Gastritis (K29.70) Active confirmed Encounters Encounter Location Date Provider Diagnosis [facility] Outpatient [address] [place] [id number] 09/26/2023 Ahsan Barnes Gastro-esophageal reflux disease without esophagitis K21.9 ; Hiatal hernia K44.9 and Gastritis K29.70 Assessments Encounter Date Diagnosis (ICD Code) Assessment Notes Treatment Notes Treatment Clinical Notes Section Notes 09/26/2023 Gastro-esophagea l reflux disease without esophagitis (ICD-10 - K21.9) 09/26/2023 Hiatal hernia (ICD-10 - K44.9) 09/26/2023 Gastritis (ICD-10 - K29.70) Plan Of Treatment Next Appt Details Provider Name:Ahsan Barnes , 06/04/2025 10:30:00 AM, [address], [address], [place], [address], Progress Notes * BELLA SANTAMARIA:1965 ( 59 yo M)Acc No.[id number]:09/26/2023 EGD/MAC Patient: YONY LLOYD Provider: Bharat Barnes MD :1965 A ge:58 Y S ex:Male Date:09/26/2023 Address:[address] [place], [place] [id number] Pcp:MANSOOR VERGARA M.D. Subjective: * Chief Complaints: * E rosive esophagitis Assessment: * Assessment: 1. G krystin-esophageal reflux disease without esophagitis - K21.9 (Primary) 2 .?Hiatal hernia - K44.9 3 . G astritis - K29.70 Plan: * Procedure Codes: 4 3239 UPPER GI ENDOSCOPY, BIOPSY Billing Information: * Procedure Codes: 98296 UPPER GI ENDOSCOPY, BIOPSY. * The named appointment provid er may or may not be the originator of this progress note, and it is not deemed complete until electronically signed by the appointment provider. Sign off status: Pending * Provider: Bharat Barnes MD Date: 0 09/26/2023 Generated for Ar solano/Sonya/eTransmitting on: 1 05/06/2024 01:50 PM EST
[2025-03-05 12:50] VITALS: BP 120/64; PULSE 71; RESP 16; TEMP 36.1; O2SAT 99; BMI 28.2
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
--- OUTSIDE RECORDS SUMMARY | 2025-03-05 13:51 | XMS_ITS | Patient Health Record ---
Author Organization [facility] Address [address] [place] [address] Care Team Providers Care Plant Puller Name Role Phone MANSOOR VERGARA M.D. Primary Care Provider Ahsan Loving [phone] Allergies No Known Allergies Results Component Value Reference Range Flag Notes Therapeutic Phlebotomy Reviewed date:03/09/2024 09:18:46 PM Interpretation: Performing Lab:[facility], [address] [place] [phone] Notes/Report: THER/HGB 14.9 14.0-18.0 g/dL N THER/HCT TNP 42.0-52.0 % Therapeutic Phlebotomy Phlebotomy Performed 500 mls drawn on 03/08/24. Please note that a copy of this report has been sent to the Primary Care Physician, the ordering physician and any physician designated by patient request. Ferritin (Not yet reviewed b y provider) Interpretation: Performing Lab:[facility], [address] [place] [phone] Notes/Report: Ferritin 358 20-250 ng/mL H Liver Panel Reviewed date:05/15/2024 12:41:43 PM Interpretation: Performing Lab:[facility], [address] [place] [phone] Notes/Report: Bilirubin Total 1.0 0.0-1.0 mg/dL N Bilirubin Direct 0.3 0.0-0.5 mg/dL N Aspartate Amino Transferase 72 5-37 U/L H Alanine Aminotransferase 64 0-40 U/L H Total Protein 6.5 6.5-8.0 g/dL N Albumin Level 3.8 3.5-5.0 g/dL N Alkaline Phosphatase 64 39-117 U/L N IRON PROFILE Reviewed date:05/15/2024 12:41:32 PM Interpretation: Performing Lab:[facility], [address] [place] [phone] Notes/Report: Iron 98 45-160 mcg/dL N Total Iron Binding Capacity 287 228-428 mcg/dL N Percent Iron Saturation 34 15-50 % N Unsaturated Iron Binding 189 Therapeutic Phlebotomy Reviewed date:05/15/2024 12:41:11 PM Interpretation: Performing Lab:[facility], [address] [place] [phone] Notes/Report: THER/HGB 15.4 14.0-18.0 g/dL N THER/HCT TNP 42.0-52.0 % Therapeutic Phlebotomy Phlebotomy Performed 500 mls drawn on 05/15/24. Please note that a copy of this report has been sent to the Primary Care Physician, the ordering physician and any physician designated by patient request. Therapeutic Phlebotomy (Not yet reviewed by provider) Interpretation: Performing Lab:[facility], [address] [place] [phone] Notes/Report: THER/HGB 14.9 14.0-18.0 g/dL N THER/HCT TNP 42.0-52.0 % Therapeutic Phlebotomy Phlebotomy Performed 500 mls drawn on 07/17/24. Please note that a copy of this report has been sent to the Primary Care Physician, the ordering physician and any physician designated by patient request. Therapeutic Phlebotomy Reviewed date:09/17/2024 11:53:38 PM Interpretation: Performing Lab:[facility], [address] [place] [phone] Notes/Report: THER/HGB 13.9 14.0-18.0 g/dL L THER/HCT TNP 42.0-52.0 % Therapeutic Phlebotomy Phlebotomy Performed 500 mls drawn on 09/17/24. Please note that a copy of this report has been sent to the Primary Care Physician, the ordering physician and any physician designated by patient request. Liver Panel (Not yet reviewe d by provider) Interpretation: Performing Lab:[facility], [address] [place] [phone] Notes/Report: Bilirubin Total 0.6 0.0-1.0 mg/dL N Bilirubin Direct 0.2 0.0-0.5 mg/dL N Aspartate Amino Transferase 109 5-37 U/L H Alanine Aminotransferase 62 0-40 U/L H Total Protein 6.3 6.5-8.0 g/dL L Albumin Level 3.9 3.5-5.0 g/dL N Alkaline Phosphatase 67 39-117 U/L N Ferritin (Not yet reviewed b y provider) Interpretation: Performing Lab:[facility], [address] [place] [phone] Notes/Report: Ferritin 150 20-250 ng/mL N IRON PROFILE Reviewed date:11/22/2024 06:40:33 PM Interpretation: Performing Lab:[facility], [address] [place] [phone] Notes/Report: Iron 64 45-160 mcg/dL N Total Iron Binding Capacity 328 228-428 mcg/dL N Percent Iron Saturation 20 15-50 % N Unsaturated Iron Binding 264 Therapeutic Phlebotomy Reviewed date:11/22/2024 06:40:23 PM Interpretation: Performing Lab:[facility], [address] [place] [phone] Notes/Report: THER/HGB 14.3 14.0-18.0 g/dL N THER/HCT [...] Info Options Details Miscellaneous: Marital status: 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: 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/socially; nonsmoker Nonsmoker; Recovering alcoho lic Nonsmoker; Recovering alcoho lic Nonsmoker; Recovering alcoho lic Problems Problem Type SNOMED Code ICD Code Onset Dates Problem Status W/U Status Risk Notes Problem Colon cancer screening (864886505) Colon cancer screening (Z12.11) Active confirmed Problem Esophageal reflux (548433801) Esophageal reflux (K21.9) Active confirmed Problem Gastro-esophageal reflux disease without esophagitis (120871794) Gastro-esophageal reflux disease without esophagitis (K21.9) Active confirmed Problem History of adenomatous polyp of colon (644544603) History of adenomatous polyp of colon (Z86.010) Active confirmed Problem Elevated liver enzymes level (258270850) Elevated liver function tests (R79.89) Active confirmed Problem Preprocedural examination (689613447064162) Preprocedural examination (Z01.818) Active confirmed Problem Fatty liver (317436698) Fatty liver (K76.0) Active confirmed Problem Iron excess (30301103) Iron excess (E83.19) Active confirmed Problem Erosive esophagitis (44367339) Erosive esophagitis (K22.10) Active confirmed Problem Gastritis (5459979) Gastritis (K29.70) Active c onfirmed Problem Elevated liver enzymes level (694748380) Elevated liver function tests (R94.5) Active confirmed Problem Erosive gastritis (5973185117345697) Erosive gastritis (K29.60) Active confirmed Problem Diverticulosis of colon (466057952) Diverticulosis of colon (K57.30) Active confirmed Problem Gastroesophageal reflux disease (754587808) Gastroesophageal reflux disease, unspecified whether esophagitis present (K21.9) Active confirmed Encounters Encounter Location Date Provider Diagnosis [facility] [address] [place] [address] 01/31/2025 Ahsan Barnes Plan Of Treatment Pending Test Test Name [...] 07/27/2022 COLONOSCOPY 07/27/2022 UPPER GI ENDOSCOPY 07/26/2023 Next Appt Details Provider Name:Ahsan Barnes , 06/04/2025 10:30:00 AM, [address], [address], [place], [address], Insurance Providers Payer Name Payer Address Payer Phone Subscriber Number Group Number Insured Name Patient Relationship to Insured Coverage Start Date Coverage End Date [facility] [address] [place] [id number] [phone] [id number] YONY HOPE Self - patient is the insured Medical (General) History Medical History History ICD Code NIDDM Hypertension Depression Hyperlipidemia Denies SD,CVA,renal disease Pulmonary sarcoidosis--diagn osed approx 15 yrs ago--on predniosone at the time--inactive at the present time Negative sleep study in the past Screening colonoscopy in 6 revealed small tubular adenomas that were removed [...]
--- OUTSIDE RECORDS SUMMARY | 2025-03-05 13:51 | XMS_ITS | Patient Health Record ---
Author Organization [facility] Address [address] [place] [address] Care Team Providers Care Rice Field Worker Name Role Phone Gumaro Sánchez MD Primary Care Provider Unavailab ChacondanutaJenifer Unavailable [phone] Reason For Referral No Information Medications Medication [...] Problem Type II diabetes mellitus without complication (895519762) Type 2 diabetes mellitus without complication, without long-term current use of insulin (E11.9) Active confirmed Plan Of Treatment Pending Test Test Name Order Date 28697- Debride <25 sq cm 09/07/2017 Insurance Providers Payer Name Payer Address Payer Phone Subscriber Number Group Number Insured Name Patient Relationship to Insured Coverage Start Date Coverage End Date [facility] [address] [place] [id number] [facility] hat, Shima Spouse - patient is the spouse of the insured Medical (General) History Medical History History ICD Code Diabetic High blood pressure Sarcoidosis Bone implants/screws Surgical History Surgery Date(Month/Year) appendectomy 1990 achilles tendon repair 1994 right knee replacement (first one failed ) 2013,2015 wrist surgery
== END 2025-03-05 13:28 | disposition home or self-care (01) ==
LOC: HO.HMCHD 12:48
PROVIDERS: PCP Student in an Organized Health Care Education/Training Program; Visit Provider Student in an Organized Health Care Education/Training Program
DX: R53.1 Weakness (principal); M79.89 Other specified soft tissue disorders; F10.90 Alcohol use, unspecified, uncomplicated; I10 Essential (primary) hypertension; F32.A Depression, unspecified; E11.69 Type 2 diabetes mellitus with other specified complication; K21.9 Gastro-esophageal reflux disease without esophagitis

== ENCOUNTER 2025-03-12 10:33 | Outpatient (AMB) | payer OTHER, SELFPAY ==
--- OUTSIDE RECORDS SUMMARY | 2023-09-26 07:50 | XMS_ITS ---
Author Organization [facility] Address [address] [place] [address] Care Team Providers Care Airborne Operations Manager Name Role Phone MANSOOR VERGARA M.D. Primary Care Provider Ahsan Loving [phone] REASON FOR VISIT erosive esophagitis Problems Problem Type SNOMED Code ICD Code Onset Dates Problem Status W/U Status Risk Notes Problem Gastro-esophagea l reflux disease without esophagitis (272418594) Gastro-esophage al reflux disease without esophagitis (K21.9) Active confirmed Problem Gastritis (9040520) Gastritis (K29.70) Active confirmed Encounters Encounter Location Date Provider Diagnosis [facility] Outpatient [address] [place] [phone] 09/26/2023 Ahsan Barnes Gastro-esophageal reflux disease without [...] Name:Ahsan Barnes , 06/04/2025 10:30:00 AM, [address], [address], [place], [address], Progress Notes * BELLA SANTAMARIA:1965 ( 59 yo M)Acc No.[id number]:09/26/2023 EGD/MAC Patient: YONY LLOYD Provider: Bharat Barnes MD :1965 A ge:58 Y S ex:Male Date:09/26/2023 Address:[address] [place], [place] [phone] Pcp:MANSOOR VERGARA M.D. Subjective: * Chief Complaints: * E rosive esophagitis Assessment: * Assessment: 1. G krystin-esophageal reflux disease without esophagitis - K21.9 (Primary) 2 .?Hiatal hernia - K44.9 3 . G astritis - K29.70 Plan: * Procedure Codes: 4 3239 UPPER GI ENDOSCOPY, BIOPSY Billing Information: * Procedure Codes: 62305 UPPER GI ENDOSCOPY, BIOPSY. * The named appointment provid er may or may not be the originator of this progress note, and it is not deemed complete until electronically signed by the appointment provider. Sign off status: Pending * Provider: Bharat Barnes MD Date: 0 09/26/2023 Generated for Ar solano/Sonya/eTransmitting on: 1 02:13 PM EST
--- OUTSIDE RECORDS SUMMARY | 2025-03-07 23:59 | XMS_ITS | Continuity of Care Document ---
Author Organization [facility] Address [address] [place] [address] [address] [place] [address]- Care Team Providers Care Paste Thinner Name Role Phone Carlton COHEN, Osman Plummer Primary Care Physician [place] [facility] [place] [facility] [address] [place] [address]- Attending Physician: Mejia Soliman MD Encounter Type: Office Visit Allergies, Adverse Reactions, Alerts No Known Allergies Functional Status Functional Status Assessment Assessment Assessment Component Result Effecti ve Disability status [CUBS] I'm Thriving - no identified disability 02/28/25 Do you have serious difficulty walking or climbing stairs Yes 02/28/25 Are you blind, or do you have serious difficulty seeing, even when wearing glasses No 02/28/25 Difficulty communica ting in usual language No 02/28/25 Because of a physica l, mental, or emotional condition, do you have serious difficulty concentrating, remembering, or making decisions No 02/28/25 Difficulty Reading O r Writing No 02/28/25 Do you have difficul ty dressing or bathing Yes 02/28/25 Are you deaf, or do you have serious difficulty hearing No 02/28/25 Because of a physica l, mental, or emotional condition, do you have difficulty doing errands alone such as visiting a physician's office or shopping No 02/28/25 Do you need any nandini tional assistance or accommodations during your visit No 02/28/25 Immunizations Given and Recorded Vaccine Date Status Refusal Reason SARS-CoV-2 (COVID-19) mRNA BNT-162b2 vac 06/14/20 Given SARS-CoV-2 (COVID-19) mRNA BNT-162b2 vac 05/24/20 Given Medications acetaminophen 325 mg oral tablet 975 mg, By Mouth, Every 6 hours, Refills 0, Maintenance, 01/18/25 3:36:00 PM EST, Partial fill upon patient request if the prescription is for a schedule II opioid drug. Start Date: 01/18/25 Status: Ordered Medication Dispense Status: Completed Total Allowed Fills: 1 Fills Dispensed: 0 amLODIPine 10 mg oral tablet 30 tablet, 0 Refill(s), 0 Refills, 02/01/25 11:41:00 AM EST, Partial fill upon patient request if the prescription is for a schedule II opioid drug. Start Date: 02/01/25 Status: Ordered Medication Dispense Status: Completed Total Allowed Fills: 1 Fills Dispensed: 0 atorvastatin 20 mg oral tablet 1 tablet = 20 mg, By Mouth, Daily, pt unsure of dose, # 30 tablet, 0 Refills, Maintenance, 09/13/19 10:27:00 AM EDT, Tablet Start Date: 09/13/19 Status: Ordered Medication Dispense Status: Completed Quantity: 30.0 Unit: tablet Total Allowed Fills: 1 Fills Dispensed: 0 citalopram 40 mg oral tablet 40 mg, 1, tablet, By Mouth, Daily at bedtime, # 30 tablet, Refills 0, Maintenance, 09/13/19 10:16:00 AM EDT Start Date: 09/13/19 Status: Ordered Medication Dispense Status: Completed Quantity: 30.0 Unit: tablet Total Allowed Fills: 1 Fills Dispensed: 0 cyclobenzaprine 10 mg oral tablet 10 mg, By Mouth, Every 8 hours, Refills 0, Maintenance, 01/18/25 3:36:00 PM EST, Partial fill upon patient request if the prescription is for a schedule II opioid drug. Start Date: 01/18/25 Status: Ordered Medication Dispense Status: Completed Total Allowed Fills: 1 Fills Dispensed: 0 D3 1 TAB, By Mouth, Daily, 0 Refills, Maintenance, 02/01/25 11:56:00 AM EST, Partial fill upon patientrequest if the prescription is for a schedule II opioid drug. Start Date: 02/01/25 Status: Ordered Medication Dispense Status: Completed Total Allowed Fills: 1 Fills Dispensed: 0 docusate sodium 100 mg oral capsule 100 mg, 1, capsule, By Mouth, 2 times a day, Refills 0, Maintenance, 01/18/25 3:36:00 PM EST, Partial fill upon patient request if the prescription is for a schedule II opioid drug. Start Date: 01/18/25 Status: Ordered Medication Dispense Status: Completed Total Allowed Fills: 1 Fills Dispensed: 0 folic acid 1 mg oral tablet 1 mg, By Mouth, Daily, Refills 0, Maintenance, 01/18/25 3:36:00 PM EST, Partial fill upon patient request if the prescription is for a schedule II opioid drug. Start Date: 01/18/25 Status: Ordered Medication Dispense Status: Completed Total Allowed Fills: 1 Fills Dispensed: 0 gabapentin 300 mg oral capsule 300 mg, 1, capsule, By Mouth, Daily at bedtime, Refills 0, Maintenance, 01/13/25 4:10:00 PM EST, Partial fill upon patient request if the prescription is for a schedule II opioid drug. Start Date: 01/13/25 Status: Ordered Medication Dispense Status: Completed Total Allowed Fills: 1 Fills Dispensed: 0 lactulose 10 gm/15 ml oral syrup 2700 mL, 0 Refill(s), 0 Refills, 02/01/25 11:42:00 AM EST, Partial fill upon patient request if theprescription is for a schedule II opioid drug. Start Date: 02/01/25 Status: Ordered Medication Dispense Status: Completed Total Allowed Fills: 1 Fills Dispensed: 0 lisinopril 20 mg oral tablet 20 mg, 1, tablet, By Mouth, Daily, # 30 tablet, Refills 0, Maintenance, 09/13/19 10:14:00 AM EDT Start Date: 09/13/19 Status: Ordered Medication Dispense Status: Completed Quantity: 30.0 Unit: tablet Total Allowed Fills: 1 Fills Dispensed: 0 lisinopril 20 mg oral tablet 20 mg, 1, tablet, By Mouth, Daily, # 30 tablet, Refills 0, Maintenance, 01/13/25 4:10:00 PM EST, Partial fill upon patient request if the prescription is for a schedule II opioid drug. Start Date: 01/13/25 Status: Ordered Medication Dispense Status: Completed Quantity: 30.0 Unit: tablet Total Allowed Fills: 1 Fills Dispensed: 0 metFORMIN 1000 mg oral tablet 1 tablet = 1,000 mg, By Mouth, 2 times a day, # 180 tablet, 3 Refills, Maintenance, 01/30/25 10:00:00 AM EST, Tablet, [facility]/pharm[facility] #[id number], Partial fill upon patient request if the prescription is for a schedule II opioid drug., 195.58, cm, 01/30/25 9:10:00 EST, Height, 132.4, kg, 01/13/25 19:26:00 EST, Dry Weight Start Date: 01/30/25 Status: Ordered Medication Dispense Status: Completed Quantity: 180.0 Unit: tablet Total Allowed Fills: 4 Fills Dispensed: 0 Metoprolol Succinate ER 50 mg oral tablet, extended release 50 mg, 1, tablet, By Mouth, Daily, # 30 tablet, Refills 0, Maintenance, 01/13/25 4:10:00 PM EST, Partial fill upon patient request if the prescription is for a schedule II opioid drug. Start Date: 01/13/25 Status: Ordered Medication Dispense Status: Completed Quantity: 30.0 Unit: tablet Total Allowed Fills: 1 Fills Dispensed: 0 MiraLax Powder 1 pack/packet = 17 Gm, By Mouth, Daily, 0 Refills, Maintenance, 01/18/25 3:36:00 PM EST, Powder, Partial fill upon patient request if the prescription is for a schedule II opioid drug. Start Date: 01/18/25 Status: Ordered Medication Dispense Status: Completed Total Allowed Fills: 1 Fills Dispensed: 0 mirtazapine 15 mg oral tablet 1 tablet = 15 mg, By Mouth, Daily at bedtime, # 30 tablet, 0 Refills, Maintenance, 01/14/25 10:45:00AM EST, Tablet, Partial fill upon patient request if the prescription is for a schedule II opioid drug. Start Date: 01/14/25 Status: Ordered Medication Dispense Status: Completed Quantity: 30.0 Unit: tablet Total Allowed Fills: 1 Fills Dispensed: 0 Multivit Therapeutic/Minerals Tablet 1 tablet, By Mouth, Daily, 0 Refills, Maintenance, 01/18/25 3:36:00 PM EST, Tablet, Partial fill upon patient request if the prescription is for a schedule II opioid drug. Start Date: 01/18/25 Status: Ordered Medication Dispense Status: Completed Total Allowed Fills: 1 Fills Dispensed: 0 pantoprazole 40 mg oral delayed release tablet = 40 mg, By Mouth, 2 times a day, 0 Refills, Maintenance, 01/18/25 3:36:00 PM EST, EC Tablet Start Date: 01/18/25 Status: Ordered Medication Dispense Status: Completed Total Allowed Fills: 1 Fills Dispensed: 0 Pyridoxine Tablet 50 mg, By Mouth, Daily, Refills 0, Maintenance, 01/18/25 3:36:00 PM EST, Partial fill upon patient request if the prescription is for a schedule II opioid drug. Start Date: 01/18/25 Status: Ordered Medication Dispense Status: Completed Total Allowed Fills: 1 Fills Dispensed: 0 Senna 8.6 mg oral tablet 17.2 mg, 2, tablet, By Mouth, Daily, Refills 0, Maintenance, 01/18/25 3:36:00 PM EST, Tablet, Partial fill upon patient request if the prescription is for a schedule II opioid drug. Start Date: 01/18/25 Status: Ordered Medication Dispense Status: Completed Total Allowed Fills: 1 Fills Dispensed: 0 thiamine 100 mg oral tablet 100 mg, By Mouth, 2 times a day, Refills 0, Maintenance, 01/18/25 3:36:00 PM EST, Partial fill upon patient request if the prescription is for a schedule II opioid drug. Start Date: 01/18/25 Status: Ordered Medication Dispense Status: Completed Total Allowed Fills: 1 Fills Dispensed: 0 Trazodone = 50 mg, By Mouth, Daily at bedtime, 0 Refills, Maintenance, 02/25/16 11:57:41 AM EST Start Date: 02/25/16 Status: Ordered Medication Dispense Status: Completed Total Allowed Fills: 1 Fills Dispensed: 0 Vital Signs Most recent to oldest [Reference Range]: 1 Height 195.58 cm (02/28/25 2:44 PM) Weight 109.3 kg (02/28/25 2:44 PM) Oxygen Saturation [94-100 %] 100 % (02/28/25 2:44 PM) Pulse Rate [55-90 bpm] 77 bpm (02/28/25 2:44 PM) Body Mass Index [18.5-24.99 kg/m2] 28.57 kg/m2 *H* (02/28/25 2:44 PM) Blood Pressure [90-138/55-84 mm Hg] 150/ 84mm Hg *H* (02/28/25 2:44 PM) Temperature [96.8-100.4 DegF] 97.7 DegF (02/28/25 2:44 PM) Blood pressure sites Arm, right (02/28/25 2:44 PM) Temperature Route Temporal (02/28/25 2:44 PM) Weight Obtained Via Standing scale (02/28/25 2:44 PM) Social History Social History Type Response Smoking Status Never (less than 100 in lifetime);Never; Type: Cigarettes entered on: 02/01/25 Sex Sex Representation Male (finding) Status N/A Patient Care team information Care Team Personnel Name: Sindhu Byrd RN Position: S RN Member Role: Primary Care Nurse Name: Colt Ramsay RN Position: S RN Supv Member Role: Primary Care Nurse Name: Maite Howell RN Position: S RN Member Role: Primary Care Nurse Name: Osman Vincent MD Position: Reference Physician Member Role: PCP Address: [address] [place] [address] [id number] [facility] [place] [id number] [[email or web address] Telecom: Care Team Related Persons Name: LACI SANTAMARIA Name: MATHIEU SANTAMARIA Insurance Providers Guarantor name: JENNA Health Plan Information #: 1 Payer: [employer] Payer Identifier: JENNA Member Number: [id number] Group Number: [id number] Subscriber Identifier: [id number] Relationship to Subscriber: spouse Coverage Type: Commercial Indemnity Coverage Verification Date: JENNA Telecom: JENNA Address:
--- OUTSIDE RECORDS SUMMARY | 2025-03-09 15:55 | XMS_ITS | Continuity of Care Document ---
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 Vital Signs?? Temperature: 97.7 DegF (03/09/25 12:00:00) Temperature Route: Oral (03/09/25 12:00:00) Pulse Rate: 56 bpm (03/09/25 12:00:00) Heart Rate Monitored: 55 bpm (03/08/25:00:25) Respiratory Rate: 18 br/min (03/09/25 12:00:00) Vented: No (03/08/25 21:00:00) Systolic Blood Pressure: 122 mm Hg (03/09/25 12:00:00) Diastolic Blood Pressure: 68 mm Hg (03/09/25 12:00:00) Blood pressure sites: Arm, right (03/09/25 12:00:00) Mean Arterial Pressure: 97 mm Hg (03/09/25 05:49:00) Pulse Pressure: 54 mm Hg (03/09/25 12:00:00) Oxygen Saturation: 100 % (03/09/25 12:00:00) Mode of Delivery (Oxygen): Room air (03/09/25 12:00:00) Early Warning Score: 5 (03/09/25 13:10:59) . Physical Exam General: Well appearing. In no distress. Head: Sutures to scalp. Eyes: Pope conjunctiva. Anicteric sclera. Ears: Bilateral pinnae without discharge or lesions. Nose:?? No discharge or congestion. Throat/Mouth: MMM. Oral mucosa was pink and without any lesions. Cardiovascular: Physiologic S1 and S2. No murmurs, rubs or gallops could be auscultated. Respiratory: CTA bilaterally with good inspiratory effort and symmetric chest wall movement. No wheezes, rales, or rhonchi. Abdominal: Abdomen is??soft and non-distended. Positive bowel sounds in all four quadrants. No tenderness to palpation. No rebound or guarding. No CVA tenderness. Musculoskeletal: Moving all 4 extremities equally. Vascular: Radial pulses are 2+??bilaterally. No peripheral edema. Neurologic:??Mental Status: Alert and Oriented to person, place, time, situation Able to repeat phrases, follow commands, name objects Cranial Nerve exam: CNII: Normal visual acuity with full visual briscoe. PERRLA.?? CNIII, IV, : Extraocular movement intact bilaterally. CNV: Facial sensation intact bilaterally. [place] and temporalis have strong tone with clenched jaw. Corneal reflex intact CNVII: Symmetrical facial movements (smile, frown, eyebrow raise). Strong buccinator tone bilaterally. CNVIII: No gross hearing deficits. CNIX, X: Uvula midline.?? Symmetric palate rise. CNXI: Shoulder shrug symmetric. Sternocleidomastoid had 5/5 strength. CNXII: No tongue deviation on protrusion. Patient is able to move tongue left and right. Motor: Patient had full range of motion in neck, extremities, and back. Muscle strength is 5/5 bilaterally in all extremities. Sensation: Intact to both sharp and soft touch bilaterally in all extremities.?? Cerebellar: No tremors noted. Normal finger to nose test. Surgical Procedures Craniotomy Evacuation Subdural Hematoma 03/06/2025 11:24 Consultants Neurosurgery Neuroendovascular surgery Interventional radiology Neurology Pending Results None Patient Education Titles [employer] Patient Education - Tamsulosin?? [employer] Patient Education - Neurosurgery-Craniotomy for SDH EDH?? [employer] Patient Education - Discharge Instructions for Deep Vein Thrombosis (DVT)?? [employer] Patient Education - What Is a Subdural Hematoma??? [employer] Patient Education - Levetiracetam?? [employer] Patient Education - Apixaban?? Follow-Up Appointments Added Follow Up ?Time Frame ?Comments Herbert COHEN, Vanessa Diaz DO?Within two weeks Carlton COHEN, Osman Plummer?Within two weeks Patient Instructions You are brought to the hospital because you are having right sided??weakness.?? You are found to have something called a subdural hematoma which is??bleeding??in the skull.?? This is caused by??bleeding from an artery.?? You were also found to have a blood clot in your leg.?? For the blood clot,??an IVC filter was placed to prevent the blood clot from spreading to the??lungs.?? For the artery, you underwent embolization to stop the bleeding.?? For the subdural hematoma, you underwent a craniectomy??bilaterally??to remove the blood.?? You tolerated all of these procedures very well.?? Your symptoms have significantly improved.?? Physical therapy reevaluated you??and you will be going home with outpatient physical therapy and Occupational Therapy.?? While you are in the hospital, you did have some trouble urinating??so you are started on medication called tamsulosin. ??Please follow-up with your primary care doctor about this. For the subdural hematoma???you will take??a medication called Keppra for 1 month to prevent seizures and will follow-up with neurosurgery in about 2 weeks to remove the johnny.?Please do not drive until you have been seen by the neurosurgeons. For the??embolization???he will follow-up with the neuroendovascular surgeon, the appointment has been set up For the DVT???you will start a medication called Eliquis??10 mg twice a day for 7 days and then 5 mg??twice a day??for about 3 to 6 months.?? Your primary care doctor should refer you back to the interventional radiologist??after about a month of you being on this medication to determine when the best time to remove the IVC filter as Continued follow-up with your primary care doctor for??the alcohol use disorder, the blood pressure, and the diabetes. If you develop any??facial droop, slurred speech,??vision changes, difficulty using 1 side of your body, chest pain, shortness of breath,??episodes of passing out,??or any other new or concerning symptom please seek medical attention. [place] [facility] [facility] [place] ?walker, See Instructions, # 1 each, Refills 0, Tot. Refills 0, Maintenance, please dispense a walker for use with [id number], 03/09/25 11:06:00 EST, Supply ?Order Comment:?? Home Health Face to Face *Denotes mandatory briscoe ?? *I certify that this patient is under my care and that I or an allowed non- physician working with me had a face to face encounter with the patient on this date:??03/09/2025 13:14 ?? *The encounter with the patient was in whole, or in part, for the following medical condition, which is the primary diagnosis(es) for home health care:?? Headache (R51.9) Subdural hematoma, acute (S06.5XAA) Diabetes (E11.9) Alcohol use disorder (F10.90) HTN (hypertension) (I10) Swelling of extremity, right (M79.89) DVT of lower limb, acute (I82.409) Urinary retention (R33.9) ?? *Select the indications for the discipline/s that are being arranged for this patient. Nursing (select all that apply): [_] None [_] Medication management (reconciliation, teaching)?? [_] Chronic disease management?? [_] Wound care and treatment?? [_] Home safety evaluation [_] Administer SQ/IM/IV medications?? [_] Cath care?? [_] Drain care?? [_] Trach or GT care?? Other _ Occupation Therapy (select all that apply): [_] None [x] ADL Management [_] Fall prevention training [_] Energy conservation [_] Cognitive training Other _ Physical Therapy (select all that apply): [_] None [x] Functional mobility training [_] Home exercise program to strengthen [x] Increase ROM?? [x] Falls prevention training [_] Home maintenance program for chronic disease Other _ Speech Therapy (select all that apply): [_] None [_] Swallow evaluation and training [_] Speech and language training [_] Cognitive training to process, organize, and/or recall information Other _ ? *Homebound due to (select all that apply): [x] Inability to leave home without assistance/supervision [_] Inability to ambulate without assistance [_] Pain [x] Decreased strength and endurance [_] Unsteady gait [_] Severe SOB and fatigue [_] Impaired transfers [_] Inability to negotiate stairs [_] Limited weight bearing [_] Mental status change? *Physician Signature:??Arnie Barnard MD ?? *By signing this, I certify that I have personally evaluated the patient and agree with the findings and recommendations as documented above. Results Discharge Labs BLOOD BANK Blood Type A Positive ()?? 03/05/2025 14:05 Antibody Screen Negative ()?? 03/05/2025 14:05 ?? BLOOD COUNT & DIFF WBC 5.4 k/mm3 ()?? 03/09/2025 01:36 RBC 3.42 m/mm3 (Low)?? 03/09/2025 01:36 Hgb 10.6 Gm/dL (Low)?? 03/09/2025 01:36 Hct 30.5 % (Low)?? 03/09/2025 01:36 MCV 89.2 femtoliters ()?? 03/09/2025 01:36 MCH 31.0 pg ()?? 03/09/2025 01:36 MCHC 34.8 Gm/dL ()?? 03/09/2025 01:36 Platelet Count 126 k/mm3 (Low)?? 03/09/2025 01:36 RDW-SD 39.5 femtoliters ()?? 03/09/2025 01:36 MPV 10.6 femtoliters ()?? 03/09/2025 01:36 Nucleated RBC (Automated) 0.0 #/100 WBC'S ()?? 03/09/2025 01:36 Abs. NRBC 0.0 k/mm3 ()?? 03/09/2025 01:36 Abs. Neut 3.3 k/mm3 ()?? 03/09/2025 01:36 Abs. Lymph 1.3 k/mm3 ()?? 03/09/2025 01:36 Abs. [place] 0.5 k/mm3 ()?? 03/09/2025 01:36 Abs. Eo 0.3 k/mm3 ()?? 03/09/2025 01:36 Abs. Baso 0.0 k/mm3 ()?? 03/09/2025 01:36 Neut % 61.2 % ()?? 03/09/2025 01:36 Lymph % 24.5 % ()?? 03/09/2025 01:36 [place] % 8.9 % ()?? 03/09/2025 01:36 Eos % 4.8 % ()?? 03/09/2025 01:36 Baso % 0.4 % ()?? 03/09/2025 01:36 Hemoglobin (POC) POC Cartridge 10.2 Gm/dL (Low)?? 03/06/2025 11:44 Hematocrit (POC) POC Cartridge 30 % (Low)?? 03/06/2025 11:44 Imm Gran 0.2 % ()?? 03/09/2025 01:36 Abs. Imm Gran 0.0 k/mm3 ()?? 03/09/2025 01:36 ?? BLOOD GAS pH (POC) POC Cartridge 7.42 ()?? 03/06/2025 11:44 pCO2 (POC) POC Cartridge 35.9 mm Hg (Low)?? 03/06/2025 11:44 pO2 (POC) POC Cartridge 122 mm Hg (High)?? 03/06/2025 11:44 Estimated Bicarbonate (POC) POC Cart 23.3 mmol/L ()?? 03/06/2025 11:44 % O2 Sat Arterial (POC) POC Cartridge 99 % ()?? 03/06/2025 11:44 Base Excess (POC) POC Cartridge NEGATIVE 1 ()?? 03/06/2025 11:44 Specimen Type - Blood Gas ARTERIAL ()?? 03/06/2025 11:44 ? CARDIAC High Sensitivity Troponin (HSTnT) 12 ng/L ()?? 03/05/2025 14:36 ? CHEM GENERAL Sodium 137 mmol/L ()?? 03/09/2025 01:36 Potassium 4.3 mmol/L ()?? 03/09/2025 01:36 Chloride 104 mmol/L ()?? 03/09/2025 01:36 Bicarbonate Level 25 mmol/L ()?? 03/09/2025 01:36 Anion Gap 8 mmol/L ()?? 03/09/2025 01:36 Sodium (POC) POC Cartridge 137 mmol/L ()?? 03/06/2025 11:44 Potassium (POC) POC Cartridge 3.6 mmol/L ()?? 03/06/2025 11:44 Glucose Level 169 mg/dL (High)?? 03/09/2025 01:36 Glucose (POC) POC Cartridge 133 (High)?? 03/06/2025 11:44 Glucose, POC 176 mg/dL (High)?? 03/09/2025 11:09 BUN 8 mg/dL ()?? 03/09/2025 01:36 Creatinine-Blood 0.69 mg/dL (Low)?? 03/09/2025 01:36 Estimated GFR Creatinine 106 ML/MIN/1.73 M2 ()?? 03/09/2025 01:36 Calcium 8.9 mg/dL ()?? 03/09/2025 01:36 Calcium, Ionized pH Corrected 1.26 mmol/L ()?? 03/09/2025 01:36 Ionized Calcium (POC) POC Cartridge 1.16 mmol/L ()?? 03/06/2025 11:44 Phosphorus 3.8 mg/dL ()?? 03/09/2025 01:36 Magnesium 1.6 mg/dL ()?? 03/09/2025 01:36 AST (SGOT) 31 units/L ()?? 03/05/2025 14:36 ? COAG INR 1.1 ()?? 03/05/2025 18:31 Protime (PT) 11.9 seconds (High)?? 03/05/2025 18:31 APTT 26.0 seconds ()?? 03/05/2025 14:36 ? UA/URINALYSIS Appear/Color, Urine LIGHT YELLOW ()?? 03/06/2025 01:35 Specific [place], Urine 1.017 ()?? 03/06/2025 01:35 pH, Urine 6.5 ()?? 03/06/2025 01:35 Albumin, Urine NEGATIVE ()?? 03/06/2025 01:35 Glucose, Urine NEGATIVE ()?? 03/06/2025 01:35 Ketones, Urine TRACE (Abnormal)?? 03/06/2025 01:35 Bilirubin, Urine NEGATIVE ()?? 03/06/2025 01:35 Hemoglobin, Urine NEGATIVE ()?? 03/06/2025 01:35 Nitrite, Urine POSITIVE (Abnormal)?? 03/06/2025 01:35 Leukocyte, Urine NEGATIVE ()?? 03/06/2025 01:35 Urobilinogen NORMAL mg/dL ()?? 03/06/2025 01:35 WBC's, Urine 1 /HPF ()?? 03/06/2025 01:35 RBC's, Urine 1 /HPF ()?? 03/06/2025 01:35 Hold Urine Culture Testing available 48 hours from time of collection. ()?? 03/06/2025 01:35 ?? URINE OTHER Est Creatinine Clearance 142.63 mL/min ()?? 03/09/2025 02:54 ? Image ?CT Angio Neck Hyperacute Stroke??03/05/2025 14:21 by Jeanette Duff ?FINDINGS: CTA OF THE NECK: Arch: There is a two vessel aortic arch, with common origin of the brachiocephalic artery and left common carotid artery. There is mild atherosclerotic plaqueof the aortic arch, but origins of the supra aortic vessels are patent. Right carotid system: The common carotid and cervical internal carotid arteries are patent. There is calcified atherosclerotic plaque at the carotid bifurcation, resulting in mild ICA stenosis (35%) by NASCET criteria. There isno dissection or aneurysm. Left carotid system: The common carotid and cervical internal carotid arteries are patent. There is calcified atherosclerotic plaque at the carotid bifurcation, but no ICA stenosis (0%) by NASCET criteria. There is no dissection or aneurysm. There is a right-dominant vertebral artery system. Right vertebral: There is calcified atherosclerotic plaque at the origin but nosignificant stenosis. There is no dissection or aneurysm. Left vertebral: There is calcified atheros clerotic plaque at the origin with focal severe stenosis. No other significant stenosis. There is no dissection or aneurysm. Other: Soft tissues and bones: No evidence of lymphadenopathy or mass. Thethyroid is unremarkable. Visualized lungs are blurred by motion artifact, without significant superimposed airspace opacity. Multilevel degenerative changes of the spine are noted. There is a chronic-appearing sternal/behavioral fracture with vertical course, with increased sclerosis and blurring of fracture lines compared to the CT of 01/13/2025, compatible with partial healing. There are also subacute/chronic bilateral anterior third rib fractures. No acute osseous abnormality. CTA OF THE HEAD: Anterior circulation: Bilateral intracranial ICAs demonstrate atherosclerotic calcification, without stenosis. Bilateral DHAVAL and MCA branches are patent. There is no significant stenosis, proximal cutoff, aneurysm, or vascular malformation. Posterior circulation: Atherosclerotic calcifications are noted along bilateral proximal V4 segments, with severe stenosis on each side. Nondominant left vertebral artery is hypoplastic. The basilar artery is patent. Bilateral SCA and WASHCOAT WIPER branches are patent. There is supply to the left WASHCOAT WIPER with hypoplastic/aplastic left P1. There is partial supply to the right WASHCOAT WIPER with mildly hypoplastic right P1 segment. No high-grade stenosis or proximal cutoff is seen. There is no evidence of aneurysm or vascular malformation. Veins: Major dural venoussinuses are patent. Other: Soft tissues and bones: Bilateral mixed attenuation subdural hematomas are present at the vertex, left greater than right. There is no contrast extravasation or abnormal vascularity. No acute territorial loss of callaway-white matter differentiation. Orbits are unremarkable. There is mild scattered mucosal thickening in the paranasal sinuses without fluid levels. IMPRESSION: 1. No contrast extravasation or abnormal vascularity associated with bilateral mixed density subdural hematomas at the vertex. 2. No large vessel occlusion in the head or neck. 3. Multifocal atherosclerotic stenoses as described above, including severe stenoses of the left vertebral artery origin and bilateral intracranial vertebral arteries. Mild narrowing of the right proximal cervical ICA is also noted (35%). ?CT Head-Hyper Acute Stroke??03/05/2025 14:21 by Jeanette Duff ?FINDINGS: Manager Procurement view findings, lines and tubes: 2 metallic objects projecting over the right suprahilar region. BRAIN AND EXTRA-AXIAL SPACES: Acute on chronic right parietal subdural hematoma, measuring up to 1.8 cm in thickness (601:24), new from prior. Acute on chronic left subduralhematoma, measuring up to 2.1 cm in thickness (601:28), new from prior. Resulting mass effect on the lateral ventricles and sulcal effacement, left greater than right. Minimal midline shift of approximately 0.2 cm. Small focus of intraparenchymal hemorrhage in the right parietal lobe at the vertex (303:124), new from prior. Resolution of the previous tiny bifrontal intraparenchymal hemorrhages. Callaway- white matter differentiation is well preserved. No acute infarct. Negative insular ribbon sign. Atherosclerotic vascular calcification of the carotid arteries but negative hyperdense vessel sign. No white matter lesions. No subarachnoid hemorrhage. CALVARIUM, SKULL BASE, AND SOFT TISSUES: No fractures or suspicious bony lesions. Mild mucosal thickening of the paranasal sinuses without air-fluid level. Mucous retention cysts of the bilateral maxillary sinuses. Mastoid air cells are clear. Visualized orbits and globes are intact. The extracranial soft tissues are unremarkable. IMPRESSION: New acute on chronic bilateral subdural hematomas resulting in mass effect with sulcal effacement. Minimal midline shift of approximately 0.2 cm. Tiny focus of intraparenchymal hemorrhage of the right parietal lobe at the vertex. Resolution of the previous tiny bifrontal interparenchymal hemorrhages. ?US Doppler Ext Lower Venous Right??03/05/2025 17:03 by Cindy Negron ?FINDINGS: Common femoral vein: Patent. No thrombosis. Femoral vein: Patent. No thrombosis. Popliteal vein: There is a short segment nonocclusive thrombus within the right popliteal veinabout 3 cm in length. Gastrocnemius veins: The visualized portions are patent without evidence of th rombosis. Peroneal veins: The visualized portions are patent without evidence of thrombosis. Posterior tibial veins: The visualized portions are patent without evidence of thrombosis. Contralateral common femoral vein: Patent. No thrombosis. OTHER FINDINGS: IMPRESSION: 3 cm in length nonocclusive thrombus in right popliteal vein. ?IR Generic Order ?PROCEDURE: The patient was positioned supine and secured with . The access site was evaluated, then prepped with chloraprep and draped in the usual sterile fashion. Patient received moderate sedation administered under my direct supervision.. Access was gained into the right internal jugular vein using ultrasound guidance. A catheter was inserted and advanced to the distal inferior vena cava. A power injected inferior vena cavagram was performed to verify size and patency of the inferior vena cava 25 m. The access was dilated and the sheath from filter kit was inserted. The position of the sheath was verified and the IVC filter deployed. A manually injected DSA was performed to verify placement of the IVC filter. The sheath was removed and hemostasis was achieved using 4-0 vicryl suture and tissue adhesive was used on the access site . A sterile dressing was applied to theaccess site. The sterile field was maintained throughout the procedure and patient tolerated the procedure well with no complications of the procedure estimated blood loss was minimal Specimens/samples: no specimens or samples were sent for this procedure Patient transferred to, [facility] Post procedureinstructions sent in envelope with the patient Filter inserted: Argon OPTION ELITE VENA CAVA FILTER- Qty: 1 Each Part #: [id number] GTIN: [id number] Lot #: [id number] Exp Date: 2028-01-09 Impression: 25 mm IVC uncomplicated infrarenal IVC filter insertion patient tolerated the procedure well with no complications of the procedure Please refer back to IR for filter retrieval after his surgery recovery and stable on anticoagulants. ?NV Interventional Angio Intracranial??03/06/2025 12:53 by Kvng Mancia MD ?Interventional Recommendations IMPRESSION: Successful Zain embolization of the bilateral middle meningeal arteries as described above for treatment of acute on chronic subdural hemorrhage. The findings of the study were discussed with the patient and her family after the procedure. Plan to admit him to the Neuro intermediate care unit for overnight monitoring and discharge in a.m. Plan to repeat CT head at 1- and 3-month intervals to evaluate for improvement in the size of the subdural hematoma. ?XR Chest Portable??03/07/2025 12:55 by Candice Valenzuela ?FINDINGS: LINES AND TUBES: None. LUNGS AND PLEURA: Clear lungs. Normal pulmonary vascularity. No evidence of pleural effusion. No pneumothorax. HEART, MEDIASTINUM AND ANNIKA: Heart is normal in size. Normal mediastinal and hilar contour. BONES AND SOFT TISSUES: No acute abnormality. IMPRESSION: No acute abnormality. ?? 15??minutes spent on discharge ?? Patient seen and discussed with Attending, Dr. Black? Arnie Barnard MD PGY-4, Internal Medicine-Pediatrics Pager [phone], [employer] Electronically Signed on 03/09/25 01:18 PM Evon COHEN, Arnie * Wayne COHEN, Prateek: PERFORM Event Display: Discharge/Transfer Note Hospital Authored Date: [id number] Attending Attestation:??I have seen and evaluated this patient. ??I have discussed the case and itsmanagement with the resident and agree with the findings and plan as documented in the resident???snote. Electronically Signed on 03/09/25 10:05 PM Prateek Black MD * Grant CARPENTER, Karine Mensah: PERFORM, MODIFY Event Display: Patient Education/Instruction Authored Date: [id number] Inpatient Adult Discharge Instructions. [address] [address] Name: YONY SANTAMARIA : 1965?? Visit: 03/05/2025 16:45?? Current Date: 03/09/2025 13:33 ?? Account: [id number]?? Inpatient Adult Discharge Instructions We would like to thank you for allowing us to assist you with your healthcare needs. The following includes patient education materials and information regarding your injury/illness. Our entire staffstrives to provide an excellent experience for our patients and their families. PLEASE ENSURE YOU FOLLOW-UP PER THE INSTRUCTIONS BELOW! ?? YOUR OPINION IS IMPORTANT TO US! Please complete the survey you may receive by mail or email. Your feedback will be used to make improvements to the healthcare experiences of our patients and their families. Surveys are administered by [employer] ?? If further treatment with your primary care physician or another doctor is recommended, it is important for you to keep the appointment. Call your primary care physician or return to the Emergency Department immediately if your condition worsens, fails to improve, or new symptoms develop. If you need to find a doctor, you can call [facility] for a referral at [phone] or toll free at [phone]) or log in to [email or web address].. ?? [facility], in keeping with [facility] guidance, no longer requires face masks for staff, patientsor visitors in most situations. Similiar to time spent indoors at other locations, there is the chance that you were exposed to repiratory viruses during your time with us (such as flu or COVID-19). If you develop symptoms concerning for a viral respiratory infection, please seek testing (and treatment if indicated) from your medical provider or home test kit. ?? You can view and manage your care through the patient portal or by using a health care nabil of your choosing. [employer] is a website that allows you to securely view your medical information including your hospital discharge summary, office visit summaries, medications and follow-up visits. You can also request appointments, renew medications, and request access to your medical information using a health care nabil of your choosing, or just ask a question. You are entitled to know the individuals who participated in your treatment. This information is available within your medical record and will be provided upon your request. You can enroll at [email or web address] or register d uring your next office visit. You have been discharged from [facility], Patient Care Unit: D5A??. If you have any questions regarding these instructions, including results of studies pending, afteryou leave, please call us and we will be happy to assist you 04/10. [facility] Your Care Team Attending Physician Prateek Black MD?? Consulting Providers Prateek Black MD?? Discharging Providers Arnie Barnard MD Reason for Your Visit RLE weakness and numbness?? Your Diagnosis Alcohol use disorder Diabetes DVT of lower limb, acute HTN (hypertension) Subdural hematoma, acute Swelling of extremity, right Urinary retention Tests Performed Below is a partial list of the tests performed during your hospitalization. You may have had other tests and procedures not included in this list. Please discuss all test results with your provider. ABG POC CARTRIDGE AST BASE EXCESS POC CARTRIDGE Basic Metabolic Panel CALCIUM IONIZED POC CART CBC CBC w/ Differential GLUCOSE POC GLUCOSE POC CARTRIDGE HEMATOCRIT POC CARTRIDGE HEMOGLOBIN POC CARTRIDGE High Sensitivity Troponin T Ionized Calcium Magnesium Level Phosphorus Level POTASSIUM POC CARTRIDGE PT (INR) PTT SODIUM POC CARTRIDGE Type and Screen Urinalysis w/hold for Urine Culture CT Angio Head Hyperacute Stroke CT Angio Neck Hyperacute Stroke CT Head-Hyper Acute Stroke IR Generic Order US Doppler Ext Lower Venous Right XR Chest Portable ABG (Lab) POC Cartridge (ABG POC CARTRIDGE)?? AST?? Base Excess (Lab) POC Cartridge (BASE EXCESS POC CARTRIDGE)?? Basic Metabolic Panel?? CBC?? CBC w/ Differential?? COVID-19 (2019 Novel Coronavirus) PCR?? CT Angio Head Hyperacute Stroke?? CT Angio Neck Hyperacute Stroke?? CT Head-Hyper Acute Stroke?? Glucose (Lab) POC Cartridge (GLUCOSE POC CARTRIDGE)?? Glucose POC?? Hematocrit (Lab) POC Cartridge (HEMATOCRIT POC CARTRIDGE)?? Hemoglobin (Lab) POC Cartridge (HEMOGLOBIN POC CARTRIDGE)?? High??Sensitivity??Troponin T (High Sensitivity Troponin T)?? INR (PT (INR))?? IR Generic Order?? IR US Images?? Ionized Calcium?? Ionized Calcium(POC) POC Cartridge (CALCIUM IONIZED POC CART)?? Magnesium Level?? PTT?? Phosphorus Level?? Potassium (Lab) POC Cartridge (POTASSIUM POC CARTRIDGE)?? Sodium (Lab) POC Cartridge (SODIUM POC CARTRIDGE)?? Type and Screen?? US Doppler Ext Lower Venous Right?? Urinalysis w/hold for Urine Culture?? Chest Portable (XR Chest Portable)?? Primary Care Provider Osman Vincent MD? Advance Directive Health Care Proxy on File Yes - Health Care Proxy Discharge Vitals Temperature: 97.7 DegF Height: 195 cm Pulse Rate: 56 bpm Weight: 108.3 kg Respiratory Rate: 18 br/min Body Mass Index:??27.72 kg/m2??High Systolic Blood Pressure: 122 mm Hg Body surface area: 2.39 Diastolic Blood Pressure: 68 mm Hg ?? Oxygen Saturation: 100 % ?? Studies Pending All studies ordered during this hospital stay have been completed unless listed below. Please discuss all pending results with your provider listed above in these instructions. ?? Basic Metabolic Panel?? CBC w/ Differential?? COVID-19 (2019 Novel Coronavirus) PCR?? Ionized Calcium?? Magnesium Level?? Phosphorus Level?? What to do next Instructions From Your Doctor You are brought to the hospital because you are having right sided??weakness.?? You are found to have something called a subdural hematoma which is??bleeding??in the skull.?? This is caused by??bleeding from an artery.?? You were also found to have a blood clot in your leg.?? For the blood clot,??an IVC filter was placed to prevent the blood clot from spreading to the??lungs.?? For the artery, you underwent embolization to stop the bleeding.?? For the subdural hematoma, you underwent a craniectomy??bilaterally??to remove the blood.?? You tolerated all of these procedures very well.?? Your symptoms have significantly improved.?? Physical therapy reevaluated you??and you will be going home with outpatient physical therapy and Occupational Therapy.?? While you are in the hospital, you did have some trouble urinating??so you are started on medication called tamsulosin. ??Please follow-up with your primary care doctor about this. For the subdural hematoma???you will take??a medication called Keppra for 1 month to prevent seizures and will follow-up with neurosurgery in about 2 weeks to remove the johnny.?Please do not drive until you have been seen by the neurosurgeons. For the??embolization???he will follow-up with the neuroendovascular surgeon, the appointment has been set up For the DVT???you will start a medication called Eliquis??10 mg twice a day for 7 days and then 5 mg??twice a day??for about 3 to 6 months.?? Your primary care doctor should refer you back to the interventional radiologist??after about a month of you being on this medication to determine when the best time to remove the IVC filter as Continued follow-up with your primary care doctor for??the alcohol use disorder, the blood pressure, and the diabetes. If you develop any??facial droop, slurred speech,??vision changes, difficulty using 1 side of your body, chest pain, shortness of breath,??episodes of passing out,??or any other new or concerning symptom please seek medical attention. ?? Orders? 03/09/25 13:19:00 EST?? Durable Medical Equipment??, ??See Instructions, # 1, ??each, Refills 0, Tot. Refills 0, ??Maintenance, ??please dispense a walker for use with [id number] S06.5X0A, ??03/09/25 11:06:00 EST, ??Supply?? Scheduled Follow-Up Appointments Tuesday2025 8:30 AM EST ?? Type: Return Diabetic With: Sekou Ritter, Teodora Mckeon Where: [facility] [address] [place] [address]- Status: Pending Tuesday2025 10:30 AM EST ?? Type: Return With: Kvng Mancia MD Where: [facility] [address] [facility] [place] [address]- [phone] Status: Pending You Need to Schedule the Following Appointments Follow Up with??Herbert COHEN, Jeremías Odell ?? Where:[address] [facility] [place] [address]- Follow Up with??Vanessa Patel DO When:Within Within two weeks Where: [facility] [place] [address]- Follow Up with??Carlton COHEN, Osman Plummer When:Within Within two weeks Where:[address] [place] [address] [id number] [facility] [place] [place] [address]- Discharge Medications YONY SANTAMARIA :1965 Visit Date:03/05/2025 Medications: Please continue your medications until treatment is completed or stopped by your provider. Medications not listed below should be discontinued. Discuss any questions related to medications with your provider. What How Much When Instructions Next Dose New apixaban (Eliquis Starter Pack 5 mg oral tablet) 1 tab(s) Oral Twice a day Special Instructions: take 2 tablets (10 mg) twice a day for the first 7 days, then 1 tab (5 mg) twice a day thereafter for treatment of DVT and PE ?? ONLY START ON 2025 Ordering Physician: Arnie Barnard MD ?? Pickup at [facility] Tonight @9pm New Durable Medical Equipment (walker) See instructions Special Instructions: please dispense a walker for use with ambulation ICD10 S06.5X0A Ordering Physician: Arnie Barnard MD ?? Printed Prescription New levETIRAcetam (levETIRAcetam 500 mg oral tablet) 1 tab(s) Oral Twice a day Duration: 30 Days Ordering Physician: Arnie Barnard MD Pickup at [facility] 3 Tonight @9pm New Tamsulosin (tamsulosin 0.4 mg oral capsule) 0.4 Milligram Oral Daily Refills: 5 Ordering Physician: Arnie Barnard MD at [facility] 3 Tomorrow morning @9am Changed Amlodipine (amLODIPine 10 mg oral tablet) Special Instructions: 30 tablet, 0 Refill(s) ?? Tomorrow morning @9am Changed Lisinopril (lisinopril 20 mg oral tablet) 1 tab(s) Oral Daily Tomorrow morning @9am Unchanged Acetaminophen (acetaminophen 325 mg oral tablet) 975 Milligram Oral Every 6 hours Ordering Physician: Dustin Adkins Next dose @1500 and as needed for pain. Unchanged Atorvastatin (atorvastatin 20 mg oral tablet) 1 tab(s) Oral Daily Special Instructions: pt unsure of dose ?? Tomorrow morning @9am Unchanged Cholecalciferol (D3) 1 TAB Oral Daily Tomorrow morning @9am Unchanged Citalopram (citalopram 40 mg oral tablet) 1 tab(s) Oral Daily at Bedtime Tonight @9pm Unchanged Cyclobenzaprine (cyclobenzaprine 10 mg oral tablet) 10 Milligram Oral Every 8 hours Ordering Physician: Dustin Adkins Continue home regimen Unchanged Docusate (docusate sodium 100 mg oral capsule) 1 capsule Oral Twice a day Ordering Physician: Dustin Adkins Tonight @9pm Unchanged Folic Acid (folic acid 1 mg oral tablet) 1 Milligram Oral Daily Ordering Physician: Dustin Adkins Tomorrow morning @9am Unchanged Gabapentin (gabapentin 300 mg oral capsule) 1 capsule Oral Daily at Bedtime Tonight @9pm. Unchanged Lactulose (lactulose 10 gm/ 15 ml oral syrup) Special Instructions: 2700 mL, 0 Refill(s) ?? Continue home regimen Unchanged Metformin (metFORMIN 1000 mg oral tablet) 1 tab(s) Oral Twice a day Ordering Physician: Toedora Sapp PharmD Take with supper Unchanged Metoprolol (Metoprolol Succinate ER 50 mg oral tablet, extended release) 1 tab(s) Oral Daily Tomorrow morning @9am Unchanged Mirtazapine (mirtazapine 15 mg oral tablet) 1 tab(s) Oral Daily at Bedtime Continue home regimen Unchanged Multivitamin With Minerals (Multivit Therapeutic/ Minerals Tablet) 1 tab(s) Oral Daily Ordering Physician: Dustin Adkins Tomorrow morning @9am Unchanged Pantoprazole (pantoprazole 40 mg oral delayed release tablet) 40 Milligram Oral Twice a day Ordering Physician: Dustin Adkins Tonight @9pm Unchanged Polyethylene Glycol 3350 (MiraLax Powder) 17 gram Oral Daily Ordering Physician: Dustin Adkins Tomorrow morning @9am Unchanged Pyridoxine (Pyridoxine Tablet) 50 Milligram Oral Daily Ordering Physician: Dustin Adkins Tomorrow morning @9am Unchanged Senna (Senna 8.6 mg oral tablet) 2 tab(s) Oral Daily Ordering Physician: Dustin Adkins Tomorrow morning @9am Unchanged Thiamine (thiamine 100 mg oral tablet) 100 Milligram Oral Twice a day Ordering Physician: Dustin Adkins Tonight @9pm Unchanged Trazodone 50 Milligram Oral Daily at Bedtime Tonight @9pm [facility] [address] [place], [place] [id number] [phone] ?? What How Much When Comments Stop Taking Famotidine (famotidine 20 mg oral tablet) 1 tab(s) Oral Twice a day STOP TAKING THESE MEDS PRESCRIBED Stop Taking Naltrexone (naltrexone 50 mg oral tablet) 1 tab(s) Oral Daily Stop Taking Omeprazole (omeprazole 40 mg oral enteric coated capsule) 1 capsule Oral Daily Stop Taking Phenobarbital (PHENobarbital 30 mg oral tablet) 30 Milligram Oral Twice a day Ordering Physician: Dustin Adkins Stop Taking Phenobarbital (PHENobarbital 32.4 mg oral tablet) Special Instructions: 60 tablet, 0 Refill(s) ?? Stop Taking urea powder (urea 15 g oral powder for reconstitution) 15 gram Oral Twice a day Prescription Given During Visit Durable Medical Equipment (walker) - , # 1 each, 0 Refills, please dispense a walker for use with [id number] S06.5X0A?? Tamsulosin (tamsulosin 0.4 mg oral capsule) - 0.4 mg, By Mouth, Daily, # 30 each, 5 Refills, [facility] [place] [phone]?? apixaban (Eliquis Starter Pack 5 mg oral tablet) - 1 tablet = 5 mg, By Mouth, 2 times a day, # 74 tablet, 0 Refills, take 2 tablets (10 mg) twice a day for the first 7 days, then 1 tab (5 mg) twice aday thereafter for treatment of DVT and PEONLY START ON 03/21/2025, [facility] [address], [address] [place] [phone]?? levETIRAcetam (levETIRAcetam 500 mg oral tablet) - 1 tablet = 500 mg, By Mouth, 2 times a day, # 60tablet, 0 Refills, [facility] [address], [address] [place] [phone]?? Laboratory Results Below is a partial list of the most recent Laboratory test results done prior to this discharge. You may have had other tests and procedures not included in this list. Please discuss all test resultswith your provider. Est Creatinine Clearance - 142.63 mL/min (03/09/2025) ABG POC CARTRIDGE (03/06/2025) ???pH (POC) POC Cartridge - 7.42???pCO2 (POC) POC Cartridge - 35.9 mm Hg???pO2 (POC) POC Cartridge - 122 mm Hg???Estimated Bicarbonate (POC) POC Cart - 23.3 mmol/L???% O2 Sat Arterial (POC) POC Cartridge - 99 %???Specimen Type - Blood Gas - ARTERIAL AST (03/05/2025) ???AST (SGOT) - 31 units/L BASE EXCESS POC CARTRIDGE (03/06/2025) ???Base Excess (POC) POC Cartridge - NEGATIVE 1 Basic Metabolic Panel (03/09/2025) ???Sodium - 137 mmol/L???Potassium - 4.3 mmol/L???Chloride - 104 mmol/L???Bicarbonate Level - 25 mmol/L???Anion Gap - 8 mmol/L???Glucose Level - 169 mg/dL???BUN - 8 mg/dL???Creatinine-Blood - 0.69 mg/dL???Estimated GFR Creatinine - 106 ML/MIN/1.73 M2???Calcium - 8.9 mg/dL CALCIUM IONIZED POC CART (03/06/2025) ???Ionized Calcium (POC) POC Cartridge - 1.16 mmol/L CBC (03/06/2025) ???WBC - 3.3 k/mm3???RBC - 3.52 m/mm3???Hgb - 10.9 Gm/dL???Hct - 31.3 %???MCV - 88.9 femtoliters???MCH - 31.0 pg???MCHC - 34.8 Gm/dL???Platelet Count - 131 k/mm3???RDW-SD - 39.0 femtoliters???MPV - 10.1 femtoliters???Nucleated RBC (Automated) - 0.0 #/100 WBC'S???Abs. NRBC - 0.0 k/mm3 CBC w/ Differential (03/09/2025) ???WBC - 5.4 k/mm3???RBC - 3.42 m/mm3???Hgb - 10.6 Gm/dL???Hct - 30.5 %???MCV - 89.2 femtoliters???MCH - 31.0 pg???MCHC - 34.8 Gm/dL???Platelet Count - 126 k/mm3???RDW-SD - 39.5 femtoliters???MPV - 10.6 femtoliters???Nucleated RBC (Automated) - 0.0 #/100 WBC'S???Abs. NRBC - 0.0 k/mm3???Abs. Neut - 3.3 k/mm3???Abs. Lymph - 1.3 k/mm3???Abs. [place] - 0.5 k/mm3???Abs. Eo - 0.3 k/mm3???Abs. Baso - 0.0 k/mm3???Neut % - 61.2 %???Lymph % - 24.5 %???[place] % - 8.9 %???Eos % - 4.8 %???Baso % - 0.4 %???Imm Gran - 0.2 %???Abs. Imm Gran - 0.0 k/mm3 GLUCOSE POC (03/09/2025) ???Glucose, POC - 176 mg/dL GLUCOSE POC CARTRIDGE (03/06/2025) ???Glucose (POC) POC Cartridge - 133 HEMATOCRIT POC CARTRIDGE (03/06/2025) ???Hematocrit (POC) POC Cartridge - 30 % HEMOGLOBIN POC CARTRIDGE (03/06/2025) ???Hemoglobin (POC) POC Cartridge - 10.2 Gm/dL High Sensitivity Troponin T (03/05/2025) ???High Sensitivity Troponin (HSTnT) - 12 ng/L Ionized Calcium (03/09/2025) ???Calcium, Ionized pH Corrected - 1.26 mmol/L Magnesium Level (03/09/2025) ???Magnesium - 1.6 mg/dL Phosphorus Level (03/09/2025) ???Phosphorus - 3.8 mg/dL POTASSIUM POC CARTRIDGE (03/06/2025) ???Potassium (POC) POC Cartridge - 3.6 mmol/L PT (INR) (03/05/2025) ???INR - 1.1???Protime (PT) - 11.9 seconds PTT (03/05/2025) ???APTT - 26.0 seconds SODIUM POC CARTRIDGE (03/06/2025) ???Sodium (POC) POC Cartridge - 137 mmol/L Type and Screen (03/05/2025) ???Blood Type - A Positive???Antibody Screen - Negative Urinalysis w/hold for Urine Culture (03/06/2025) ???Appear/Color, Urine - LIGHT YELLOW???Specific [place], Urine - 1.017???pH, Urine - 6.5???Albumin, Urine - NEGATIVE???Glucose, Urine - NEGATIVE???Ketones, Urine - TRACE???Bilirubin, Urine - NEGATIVE???Hemoglobin, Urine - NEGATIVE???Nitrite, Urine - POSITIVE???Leukocyte, Urine - NEGATIVE???Urobilin ogen - NORMAL???WBC's, Urine - 1 /HPF???RBC's, Urine - 1 /HPF???Hold Urine Culture - Testing available 48 hours from time of collection. Allergies (NKA means No Known Allergies) NKA No Known Medication Allergies Problems No qualifying data available Education Materials Below is the list of Educational Leaflet Providered with your Discharge Instructions. Web[employer] Patient Education - Tamsulosin?? [employer] Patient Education - Neurosurgery-Craniotomy for SDH EDH?? [employer] Patient Education - Discharge Instructions for Deep Vein Thrombosis (DVT)?? [employer] Patient Education - What Is a Subdural Hematoma??? [employer] Patient Education - Levetiracetam?? [employer] Patient Education - Apixaban?? Valuables and Belongings I fully understand and agree that [facility] accepts no responsibility for all my personal property including clothing, toilet articles, radios, jewelry, dentures, hearing aids, rings, money, or any other property that is in my possession or is brought to me after admission. I understand certain valuables may be placed in a hospital safe for a short period of time. I understand that the hospital is not liable for loss or damage due to accident, fire, or other natural occurrence while said property is in the safe. I accept full responsibility for any personal property that I keep with me, and will not hold the hospital responsible in case of loss or disappearance. I acknowledge that i have been encouraged to send valuables and belongings home. ?? Review of Valuable and Belonging List: With patient, With family Possessions released to: Phone/signal inspector, mask, and cane with . Date for Pt to Sign Valuables/Belongings: 03/06/25 10:43:00 ?? Valuables & Belongings ?? Clothes Electronic devices Jewelry Monetary Items Personal devices Miscellaneous Medications (Valuables) Valuables at Bedside Undergarments Cell phone, Other: Cell signal inspector ? Cane, Glasses ? Valuables Sent Home ? Valuables Sent to Security ? Valuables Sent to Locker ? Other Discharge Information ? Case Management Discharge Plan?? Discharge Plan?? Discharge Agency Information?? Discharge Level of Care at Discharge: Homehealth/VNA Service Categories #1: Occupational Therapy, Physical Therapy Discharge VNA/Hospice/Home Care: [facility] [phone] Service Comments #1: VNA will call you to set up time for your visit. If you don't hear from them, please call agency directly. thank you ?? Pulmonary Rehab Status?? Pulmonary Rehab Discharge Status?? Respiratory Rate: 18 br/min ? Common Emergency Awareness Tips IS IT A STROKE? Act FAST and Check for these signs: FACE Does the face look uneven? ARM Does one arm drift down? SPEECH Does their speech sound strange? TIME Call at any sign of stroke ?? Heart Attack Signs Chest discomfort: Most heart attacks involve discomfort in the center of the chest and lasts more than a few minutes, or goes away and comes back. It can feel like uncomfortable pressure, squeezing, fullness or pain. Discomfort in upper body: Symptoms can include pain or discomfort in one or both arms, back, neck, jaw or stomach. Shortness of breath: With or without discomfort. Other signs: Breaking out in a cold sweat, nausea, or lightheaded. Remember, MINUTES DO MATTER. If you experience any of these heart attack warning signs, call to get immediate medical attention! ?? Smoking can increase your chances of developing chronic health problems and can cause harmful effects to other family members in your house. If you smoke, you are strongly encouraged to quit. Please call [facility] [employer] at [phone] or [phone] Social ([phone]) or log in to [email or web address] for referrals to smoking cessation programs. ?? 444 Suicide & Crisis Lifeline is available 04/10 if you or someone you know needs to find a reason to keep living. By calling 160 you'll be connected to a skilled, trained counselor at a crisis center in your area. INPATIENT DISCHARGE INSTRUCTIONS SIGNATURE PAGE YONY SANTAMARIA Location:[facility] Registration Date and Time:03/05/2025 16:45 EST Primary Care Physician: Osman Vincent MD, Attending Physician: Wayne COHEN, Prateek, J Carlos SANTAMARIA YONY, have received the above patient education materials/instructions and have verbalized understanding. If ambulance or transport services are being used I further acknowledge being givena choice of service. ?? If you need to contact me, please call me at this number: . Patient/Road Mender Name: Patient/Road Mender Signature: Relationship to Patient: Witness Name/Signature: Date: * Arnie Barnard MD: PERFORM Event Display: Patient Education Leaflets Authored Date: [id number] Tamsulosin ?? [id number] Tamsulosin WHY is this medicine prescribed? Tamsulosin is used to treat benign prostatic hyperplasia (BPH; enlarged prostate that can cause difficulty urinating, painful urination or increased urinary frequency or urgency). Tamsulosin is in a class of medications called alpha blockers. It works by relaxing the muscles in the prostate and bladder so that urine can flow easily. HOW should this medicine be used? Tamsulosin comes as a capsule to take by mouth. Take once a day 30 minutes after a meal. Take around the same time every day. Take tamsulosin exactly as directed. Do not take more or less of it or take it more often than prescribed by your doctor. Swallow tamsulosin capsules whole; do not split, chew, crush, or open them. Your doctor will probably start you on a low dose of tamsulosin and may increase your dose after 2 to 4 weeks. Tamsulosin may help control your condition, but it will not cure it. Continue to take tamsulosin even if you feel well. Do not stop taking tamsulosin without talking to your doctor. Are there OTHER USES for this medicine? Tamsulosin is also sometimes used to treat kidney stones. This medication may be prescribed for other uses; ask your doctor or pharmacist for more information. What SPECIAL PRECAUTIONS should I follow? Before taking tamsulosin, ??? tell your doctor or pharmacist if you are allergic to this medication, any part of this medication, or any other medications, foods or substances. Tell your doctor or pharmacist about the allergyand what symptoms you had. ??? some medications should not be taken with tamsulosin. Other medications may cause dosing changes or extra monitoring when taken with tamsulosin. Make sure you have discussed any medications you are currently taking or plan to take before starting tamsulosin with your doctor and pharmacist. Before starting, stopping, or changing any medications while taking tamsulosin, please get the advice of your doctor or pharmacist. ??? the following nonprescription product mayinteract with tamsulosin: cimetidine (Tagamet??). Be sure to let your doctor and pharmacist know that you are taking this medication before you start taking tamsulosin. Do not start this medication while taking tamsulosin without discussing with your healthcare provider. ??? tell your doctor if youhave or have ever had prostate cancer or liver or kidney disease. ??? tell your doctor if you are , plan to become , or are breast-feeding. If you become while taking tamsulosin, call your doctor. ??? you should know that this medication may decrease fertility (ability to produce or have children) in women and men. This does not mean you can't get while taking tamsulosin and you should still use effective contraception. Talk to your doctor about the risks of taking this medication if you have concerns about fertility. ??? if you are having surgery, including dental surgery, tell the doctor or dentist that you are taking tamsulosin. If you need to have eye coronado rgery at any time during or after your treatment, be sure to tell your doctor that you are taking or have taken tamsulosin. ??? you should know that this medication may make you drowsy or dizzy. Do not drive a car, operate machinery, or perform dangerous tasks until you know how this medication affects you. ??? you should know that tamsulosin may cause dizziness, lightheadedness, a spinning sensation, and fainting, especially when you get up too quickly from a lying position. This is more common when you first start taking tamsulosin or after your dose is increased. To help avoid this problem, get out of bed slowly, resting your feet on the floor for a few minutes before standing up. Call your doctor if these symptoms are severe or do not go away. What should I do IF I FORGET to take a dose? Take the missed dose as soon as you remember it. However, if it is almost time for the next dose, skip the missed dose and continue your regular dosing schedule. Do not take a double dose to make up for a missed one. If you interrupt your treatment for several days or longer, call your doctor before restarting the medication, especially if you take more than one capsule of tamsulosin a day. What SIDE EFFECTS can this medicine cause? What should I know about STORAGE and DISPOSAL of this medication? Keep this medication in the container it came in, tightly closed, and out of reach of children. Store it at room temperature and away from excess heat and moisture (not in the bathroom). Keep all medication out of sight and reach of children as many containers are not child-resistant. Always lock safety caps. Place the medication in a safe location ??? one that is up and away and outof their sight and reach. https://www.upandaway.org Dispose of unneeded medications in a way so that pets, children, and other people cannot take them.Do not flush this medication down the toilet. Use a medicine take-back program. Talk to your pharmacist about take-back programs in your community. Visit the FDA's Safe Disposal of Medicines website h ttps://goo.gl/c4Rm4p for more information. What should I do in case of OVERDOSE? In case of overdose, call the poison control helpline at . Information is also available online at https://www.poisonhelp.org/help. If the victim has collapsed, had a seizure, has trouble breathing, or can't be awakened, immediately call emergency services at 911. Symptoms of overdose may include: ??? dizziness ??? fainting ??? blurred vision ??? upset stomach ??? headache What OTHER INFORMATION should I know? Keep all appointments with your doctor. Do not let anyone else take your medication. Ask your pharmacist any questions you have about refilling your prescription. Keep a written list of all of the prescription and nonprescription (ounz-qqk-zvujugt) medicines, vitamins, minerals, and dietary supplements you are taking. Bring this list with you each time you visit a doctor or if you are admitted to the hospital. You should carry the list with you in case of esperanza rgencies. Brand Name(s): ??? Flomax? Tash?? (as a combination product containing Dutasteride, Tamsulosin) also available generically ?

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
[2025-03-12 10:42] VITALS: BP 120/74; PULSE 61; RESP 16; TEMP 36; O2SAT 96; BMI 27.8
--- OUTSIDE RECORDS SUMMARY | 2025-03-12 14:13 | XMS_ITS | Patient Health Record ---
Author Organization [facility] Address [address] [place] [address] Care Team Providers Care Election Judge Name Role Phone MANSOOR VERGARA M.D. Primary Care Provider Ahsan Loving [phone] Allergies No Known Allergies Results Component Value Reference Range Flag Notes Ferritin (Not yet reviewed b y provider) Interpretation: Performing Lab:[facility], [address] [place] [phone] Notes/Report: Ferritin 358 20-250 ng/mL H Liver Panel Reviewed date:05/15/2024 12:41:43 PM Interpretation: Performing Lab:[facility], [address] [place] [phone] Notes/Report: Bilirubin Total 1.0 0.0-1.0 mg/dL N Bilirubin Direct 0.3 0.0-0.5 mg/dL N Aspartate Amino Transferase 72 5-37 U/L H Alanine Aminotransferase 64 0-40 U/L H Total Protein 6.5 6.5-8.0 g/dL N Albumin Level 3.8 3.5-5.0 g/dL N Alkaline Phosphatase 64 39-117 U/L N IRON PROFILE Reviewed date:05/15/2024 12:41:32 PM Interpretation: Performing Lab:[address] [phone] Notes/Report: Iron 98 45-160 mcg/dL N Total Iron Binding Capacity 287 228-428 mcg/dL N Percent Iron Saturation 34 15-50 % N Unsaturated Iron Binding 189 Therapeutic Phlebotomy Reviewed date:05/15/2024 12:41:11 PM Interpretation: Performing Lab:[facility], [address] [place] [phone] Notes/Report: THER/HGB 15.4 14.0-18.0 g/dL N THER/HCT TNP 42.0-52.0 % Therapeutic Phlebotomy Phlebotomy Performed 500 mls drawn on 05/15/24. Please note that a copy of this report has been sent to the Primary Care Physician, the ordering physician and any physician designated by patient request. Therapeutic Phlebotomy (Not yet reviewed by provider) Interpretation: Performing Lab:[facility], [address] [place] [phone] Notes/Report: THER/HGB 14.9 14.0-18.0 g/dL N THER/HCT TNP 42.0-52.0 % Therapeutic Phlebotomy Phlebotomy Performed 500 mls drawn on 07/17/24. Please note that a copy of this report has been sent to the Primary Care Physician, the ordering physician and any physician designated by patient request. Therapeutic Phlebotomy Reviewed date:09/17/2024 11:53:38 PM Interpretation: Performing Lab:[facility], [address] [place] [phone] Notes/Report: THER/HGB 13.9 14.0-18.0 g/dL L THER/HCT TNP 42.0-52.0 % Therapeutic Phlebotomy Phlebotomy Performed 500 mls drawn on 09/17/24. Please note that a copy of this report has been sent to the Primary Care Physician, the ordering physician and any physician designated by patient request. Liver Panel (Not yet reviewe d by provider) Interpretation: Performing Lab:[facility], [address] [place] [phone] Notes/Report: Bilirubin Total 0.6 0.0-1.0 mg/dL N Bilirubin Direct 0.2 0.0-0.5 mg/dL N Aspartate Amino Transferase 109 5-37 U/L H Alanine Aminotransferase 62 0-40 U/L H Total Protein 6.3 6.5-8.0 g/dL L Albumin Level 3.9 3.5-5.0 g/dL N Alkaline Phosphatase 67 39-117 U/L N Ferritin (Not yet reviewed b y provider) Interpretation: Performing Lab:[facility], [address] [place] [phone] Notes/Report: Ferritin 150 20-250 ng/mL N IRON PROFILE Reviewed date:11/22/2024 06:40:33 PM Interpretation: Performing Lab:[facility], [address] [place] [phone] Notes/Report: Iron 64 45-160 mcg/dL N Total Iron Binding Capacity 328 228-428 mcg/dL N Percent Iron Saturation 20 15-50 % N Unsaturated Iron Binding 264 Therapeutic Phlebotomy Reviewed date:11/22/2024 06:40:23 PM Interpretation: Performing Lab:[facility], [address] [place] [phone] Notes/Report: THER/HGB 14.3 14.0-18.0 g/dL N THER/HCT [...] Info Options Details Miscellaneous: Marital status: Occupation: [employer]--- [employer] Section Notes: occasional drinker/socially; nonsmoker Nonsmoker; Recovering alcoho lic Nonsmoker; Recovering alcoho lic Nonsmoker; Recovering alcoho lic Problems Problem Type SNOMED Code ICD Code Onset Dates Problem Status W/U Status Risk Notes Problem Colon cancer screening (118039508) Colon cancer screening (Z12.11) Active confirmed Problem Esophageal reflux (655602540) Esophageal reflux (K21.9) Active confirmed Problem Gastro-esophageal reflux disease without esophagitis (260039680) Gastro-esophageal reflux disease without esophagitis (K21.9) Active confirmed Problem History of adenomatous polyp of colon (409876768) History of adenomatous polyp of colon (Z86.010) Active confirmed Problem Elevated liver enzymes level (253111433) Elevated liver function tests (R79.89) Active confirmed Problem Preprocedural examination (585493673042425) Preprocedural examination (Z01.818) Active confirmed Problem Fatty liver (443345871) Fatty liver (K76.0) Active confirmed Problem Iron excess (60655937) Iron excess (E83.19) Active confirmed Problem Erosive esophagitis (92677260) Erosive esophagitis (K22.10) Active confirmed Problem Gastritis (3335554) Gastritis (K29.70) Active c onfirmed Problem Elevated liver enzymes level (777354310) Elevated liver function tests (R94.5) Active confirmed Problem Erosive gastritis (3713606949695085) Erosive gastritis (K29.60) Active confirmed Problem Diverticulosis of colon (286959822) Diverticulosis of colon (K57.30) Active confirmed Problem Gastroesophageal reflux disease (333427435) Gastroesophageal reflux disease, unspecified whether esophagitis present (K21.9) Active confirmed Encounters Encounter Location Date Provider Diagnosis [facility] [address] [place] [address] 01/31/2025 Ahsan Barnes Plan Of Treatment Pending [...] Name:Ahsan Barnes , 06/04/2025 10:30:00 AM, [address] [facility], [address], [place], [address], Insurance Providers Payer Name Payer Address Payer Phone Subscriber Number Group Number Insured Name Patient Relationship to Insured Coverage Start Date Coverage End Date [employer] ([employer]) [address] [place] [address] [phone] [id number] YONY SANTAMARIA Self - patient is the insured Medical (General) History Medical History History ICD Code NIDDM Hypertension Depression Hyperlipidemia Denies PR,CVA,renal disease Pulmonary sarcoidosis--diagn osed approx 15 yrs [...] have a revision by Dr. Benitez at [facility] 2006 Achilles tendon repair Appendectomy Broken right thumb back in high school
--- OUTSIDE RECORDS SUMMARY | 2025-03-12 14:14 | XMS_ITS | Patient Health Record ---
Author Organization [facility] Address [address] [place] [address] Care Team Providers Care Pediatric Clinical Nurse Specialist Name Role Phone Gumaro Sánchez MD Primary Care Provider Unavailab ChacondanutaJenifer Unavailable [phone] Reason For Referral No Information Medications Medication [...] Problem Type II diabetes mellitus without complication (092838567) Type 2 diabetes mellitus without complication, without long-term current use of insulin (E11.9) Active confirmed Plan Of Treatment Pending Test Test Name Order Date 90038- Debride <25 sq cm 09/07/2017 Insurance Providers Payer Name Payer Address Payer Phone Subscriber Number Group Number Insured Name Patient Relationship to Insured Coverage Start Date Coverage End Date [facility] [address] [place] [address] [id number] [facility] hat, Shima Spouse - patient is the spouse of the insured Medical (General) History Medical History History ICD Code Diabetic High blood pressure Sarcoidosis Bone implants/screws Surgical History Surgery Date(Month/Year) appendectomy 1990 achilles tendon repair 1994 right knee replacement (first one failed ) 2013,2015 wrist surgery
== END 2025-03-12 11:04 | disposition home or self-care (01) ==
LOC: HO.HMCHD 10:34
PROVIDERS: PCP Student in an Organized Health Care Education/Training Program; Visit Provider Student in an Organized Health Care Education/Training Program
DX: I62.9 Nontraumatic intracranial hemorrhage, unspecified (principal); I82.411 Acute embolism and thrombosis of right femoral vein; K59.09 Other constipation; R74.01 Elevation of levels of liver transaminase levels; F10.90 Alcohol use, unspecified, uncomplicated; Z95.828 Presence of other vascular implants and grafts; E78.5 Hyperlipidemia, unspecified; I10 Essential (primary) hypertension